=== PATIENT | male | born 1975 | race Hispanic/Latino ===

== ENCOUNTER 2018-04-10 02:49 | Emergency (ER) | payer BC ==
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
[2018-04-10] MEDS ORDERED: TETANUS & DIPHTHERIA TOX,ADULT 0.5 ML VIAL ONE (03:22)
[2018-04-10] MEDS ORDERED: CEFAZOLIN/SWI 1gm 2 GM/20 ML SYR ONE (03:22)
[2018-04-10 03:36] LABS: Absolute Lymphocytes (CBC) 1.5 K/uL (0.7-4.9); Absolute Monocytes 0.7 K/uL (0.1-1.3); Absolute Neutrophil 7.6 K/uL (1.8-8.0); Basophils % 0.7 % (0-1.3); Eosinophils % 2.6 % (0-4.4); Hematocrit 43.8 % (39.6-49.0); Lymphocytes % 14.7 % (15.3-44.8); MCH 31.3 pg (27.0-35.0); MCV 90.8 fL (80-100); MPV 8.6 fL (7.6-11.3); Monocytes % 6.8 % (3.3-12.3); RBC Red Blood Cell Count 4.82 M/uL (4.33-5.43)
[2018-04-10 04:10] LABS: ALT/SGPT 153 U/L (12-78); AST/SGOT 188 U/L (15-37); Albumin 3.6 g/dL (3.4-5.0); Alkaline Phosphatase 81 U/L (45-117); BUN Blood Urea Nitrogen 10 mg/dL (7-18); Bicarbonate 28 mmol/L (21-32); Bilirubin Direct 0.1 mg/dL (0-0.2); Bilirubin Total 0.3 mg/dL (0.2-1.0); Glucose Level 123 mg/dL (74-106); Lipase 285 U/L (73-393); Potassium 3.5 mmol/L (3.5-5.1); Protein, Total 7.3 g/dL (6.4-8.2); Sodium Level 142 mmol/L (136-145)
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
== END 2018-04-10 07:20 | disposition short-term general hospital (02) ==
LOC: ER 02:49
DX: S01.112A Laceration without foreign body of left eyelid and periocular area, initial encounter (principal); S22.41XA Multiple fractures of ribs, right side, initial encounter for closed fracture; S22.22XA Fracture of body of sternum, initial encounter for closed fracture; S23.29XA Dislocation of other parts of thorax, initial encounter; S27.892A Contusion of other specified intrathoracic organs, initial encounter; V49.9XXA Car occupant (driver) (passenger) injured in unspecified traffic accident, initial encounter; Z23 Encounter for immunization
CPT/HCPCS: 36415; 70450; 71260; 72125; 74177; 80048; 80076; 83690; 85025; 86850; 86900; 86901; 90714; 96365; 99285; J0690; Q9967

== ENCOUNTER 2022-03-18 17:22 | Inpatient (IN) | payer SELFPAY ==
[2022-03-18] MEDS ORDERED: HYDRALAZINE HCL 20 MG/ML VIAL ONE ×2 (18:02→19:15)
[2022-03-18 18:11] LABS: Absolute Lymphocytes (CBC) 1.1 K/uL (0.7-4.9); Hematocrit 47.2 % (39.6-49.0); Lymphocytes % 20.3 % (15.3-44.8); MCV 87.3 fL (80-100); MPV 8.4 fL (7.6-11.3); RBC Red Blood Cell Count 5.41 M/uL (4.33-5.43)
[2022-03-18 18:22] LABS: Protime INR 0.86
[2022-03-18 18:25] LABS: Potassium 3.4 mmol/L (3.5-5.1)
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
[2022-03-18 18:30] LABS: Albumin 3.9 g/dL (3.4-5.0); Bilirubin Direct 0.2 mg/dL (0-0.2); Bilirubin Total 0.7 mg/dL (0.2-1.0); Magnesium 2.3 mg/dL (1.8-2.4); Protein, Total 8.1 g/dL (6.4-8.2)
[2022-03-18] MEDS ORDERED: lisinopriL 20 MG TAB ONE (18:30)
[2022-03-18] MEDS ORDERED: POTASSIUM 25 MEQ EFFERV TAB ONE (18:31)
[2022-03-18] MEDS ORDERED: ASPIRIN 81 MG CHEWABLE TABLET ONE (19:15)
[2022-03-18 19:31] LABS: Urine Blood Negative (Negative); Urine Glucose Negative (Negative); Urine Protein Negative (Negative); Urine Specific Gravity 1.015 (1.005-1.030)
[2022-03-18 19:44] LABS: Urine RBC <5 /HPF (None Seen)
--- NOTE | 2022-03-18 19:53 | RAD REPORT ---
EXAM DESCRIPTION: Lyndsey Single View03/18/2022 7:17 pm CLINICAL HISTORY: Chest pain COMPARISON: none FINDINGS: The lungs appear clear of acute infiltrate. The heart is normal size IMPRESSION: No acute abnormalities displayed
--- NOTE | 2022-03-18 21:36 | ER ---
Nurse's Notes [facility] Name: Skyler Fairbanks Age: 47 yrs Sex: Male : 1975 Arrival Date: 03/18/2022 Time: 17:24 Bed 13 Private MD: Diagnosis: Hypertensive urgency Presentation: 03/18 17:31 Chief complaint: sister stated "on Friday I noticed he was dragging his left foot and vg1 he looked dazed". Pt denies weakness at this time, denies blurred vision, or headache. Pt reports "I have been feeling fatigued more than normal". Coronavirus screen: Vaccine status: Patient reports receiving the 2nd dose of the covid vaccine. Client denies travel out of the [place] in the last 14 days. Ebola Screen: Patient negative for fever greater than or equal to 101.5 degrees Fahrenheit, and additional compatible Ebola Virus Disease symptoms Patient denies exposure to infectious person. Initial Sepsis Screen: Does the patient meet any 2 criteria? No. Patient's initial sepsis screen is negative. Does the patient have a suspected source of infection? No. Patient's initial sepsis screen is negative. Risk Assessment: Do you want to hurt yourself or someone else? Patient reports no desire to harm self or others. Onset of symptoms was March 16, 2022. 17:31 Method Of Arrival: Ambulatory vg1 17:31 Acuity: PREMA 2 ss Triage Assessment: 17:37 General: Appears in no apparent distress. uncomfortable, Behavior is calm, cooperative. vg1 Pain: Denies pain. Neuro: Level of Consciousness is awake, alert, obeys commands, Oriented to person, place, time, situation, Prototype Special Build are equal bilaterally Moves all extremities. Gait is steady, Speech is normal, Facial symmetry appears normal. Historical: - Allergies: 17:47 No Known Allergies; vg1 - PMHx: 17:37 eczema; vg1 17:47 Hypertensive disorder; vg1 - Immunization history:: Client reports receiving the 2nd dose of the Covid vaccine. - Social history:: Smoking status: Patient denies any tobacco usage or history of. Screenin:41 Abuse screen: Denies threats or abuse. Nutritional screening: No deficits noted. tw2 Tuberculosis screening: No symptoms or risk factors identified. Fall Risk None identified. Assessment: 17:51 Reassessment: provider Saturnino Merritt notified of pts BP at this time and is at bedside. tw2 19:06 Reassessment:. vc1 19:36 Reassessment: Patient and/or family updated on plan of care and expected duration. Pain vc1 level reassessed. Patient is alert, oriented x 3, equal unlabored respirations, skin warm/dry/pink. 20:30 Reassessment: No changes from previously documented assessment. Patient and/or family vc1 updated on plan of care and expected duration. Pain level reassessed. Patient is alert, oriented x 3, equal unlabored respirations, skin warm/dry/pink. 23:36 Reassessment: No changes from previously documented assessment. Patient and/or family vc1 updated on plan of care and expected duration. Pain level reassessed. Patient is alert, oriented x 3, equal unlabored respirations, skin warm/dry/pink. Sister at bedside. Vital Signs: 17:31 Pulse 88; Resp 16; Temp 98.1; Pulse Ox 100% ; Weight 108.86 kg; Height 5 ft. 6 in. vg1 (167.64 cm); Pain 0/10; 17:46 BP 243 / 115 RA; vg1 17:46 BP 269 / 138 LA; vg1 17:54 BP 257 / 126; Pulse 92; Resp 17; Pulse Ox 98% on R/A; tw2 18:34 BP 221 / 116; Pulse 85; Resp 18; Pulse Ox 97% on R/A; tw2 18:55 BP 206 / 111; Pulse 84; Resp 11; Pulse Ox 99% on R/A; tw2 19:13 BP 203 / 118; Pulse 85; Resp 15; Pulse Ox 99% on R/A; vc1 19:35 BP 196 / 91; Pulse 90; Resp 16; Pulse Ox 100% on R/A; vc1 20:30 BP 172 / 90; Pulse 79; Resp 8; Pulse Ox 99% ; vc1 21:45 BP 168 / 107; Pulse 82; Resp 10; Pulse Ox 98% ; vc1 22:15 BP 187 / 97; Pulse 84; Resp 16; Pulse Ox 97% ; vc1 23:00 BP 181 / 98; Pulse 82; Resp 17; Pulse Ox 99% ; vc1 23:33 BP 180 / 105; Pulse 76; Resp 18; Pulse Ox 98% ; vc1 03/19 00:43 BP 167 / 98; vc1 03/18 17:31 Body Mass Index 38.74 (108.86 kg, 167.64 cm) vg1 03/18 18:34 provider notified of BP tw2 18:55 provider aware of BP tw2 NIH Stroke Scale Scores: 18:05 NIHSS Score: 0 cp ED Course: 17:24 Patient arrived in ED. rg4 17:37 Triage completed. vg1 17:37 Arm band placed on. vg1 17:40 Ashly Dewitt RN is Primary Nurse. tw2 17:41 Bed in low position. Call light in reach. Pulse ox on. NIBP on. tw2 17:45 Chito Clemons PA is PHCP. cp 17:45 Thomas Howell MD is Attending Physician. cp 17:55 Inserted saline lock: 20 gauge in right antecubital area, using aseptic technique. tw2 ,using aseptic technique. KRISTINA Menon Blood collected. 18:23 CT Head Brain wo Cont In Process Unspecified. EDMS 19:19 XRAY Chest (1 view) In Process Unspecified. EDMS 19:36 Primary Nurse role handed off by Ashly Dewitt RN vc1 19:36 Petra George RN is Primary Nurse. vc1 21:35 Adalberto Howell MD is Hospitalizing Provider. cp 03/19 00:43 No provider procedures requiring assistance completed. Patient admitted, IV remains in vc1 place. Administered Medications: 03/18 18:04 Drug: hydrALAZINE 10 mg Route: IVP; Site: right antecubital; tw2 18:56 Follow up: Response: No adverse reaction tw2 18:34 Drug: Lisinopril 20 mg Route: PO; tw2 18:56 Follow up: Response: No adverse reaction tw2 18:34 Drug: Potassium Effervescent Tablet 25 mEq Route: PO; tw2 18:57 Follow up: Response: No adverse reaction tw2 19:21 Drug: hydrALAZINE 10 mg Route: IVP; Site: right antecubital; vc1 20:00 Follow up: Response: No adverse reaction; Blood pressure is lowered vc1 19:21 Drug: Aspirin Chewable Tablet 81 mg Route: PO; vc1 20:00 Follow up: Response: No adverse reaction vc1 22:55 Drug: Metoprolol 25 mg Route: PO; vc1 23:00 Follow up: Response: No adverse reaction; Blood pressure is lowered vc1 Medication: 17:41 VIS not applicable for this client. tw2 Outcome: 21:36 Decision to Hospitalize by Provider. cp 03/19 00:44 Admitted to Tele accompanied by nurse, via wheelchair, with chart, Report called to vc1 KRISTINA Tena Condition: good Instructed on the need for admit. 00:49 Patient left the ED. vc1 NIH Stroke Scale - NIH Stroke Score Date: 03/18/2022 Time: 18:05 Total Score = 0 1a. Level of Consciousness (LOC) - 0(Alert) 1b. Level of Consciousness (LOC) (Month \\T\\ Age) - 0(Both) 1c. LOC Commands (Open \\T\\ Closes Eyes/Pediatrician Active Practice) - 0(Both) 2. Best Gaze (Lateral Gaze Paresis) - 0(Normal) 3. Visual Field Loss - 0(No visual loss) 4. Facial Palsy - 0(Normal) 5a. Left Arm: Motor (10-second hold) - 0(No drift) 5b. Right Arm: Motor (10-second hold) - 0(No drift) 6a. Left Leg: Motor (5-second hold - always test supine) - 0(No drift) 6b. Right Leg: Motor (5-second hold - always test supine) - 0(No drift) 7. Limb Ataxia (finger/nose \\T\\ heel/guadalupe - test with eyes open) - 0(Absent) 8. Sensory Loss (pinprick arms/legs/face) - 0(Normal) 9. Best Language: Aphasia (description/naming/reading) - 0(No aphasia) 10. Dysarthria (speech clarity - read or repeat words) - 0(Normal) 11. Extinction and Inattention (visual/tactile/auditory/spatial/personal) - 0(No abnormality) Initials: cp Signatures: Dispatcher [employer] EDEstefany Lind RN RN ss Chito Clemons PA PA cp Ashly Dewitt RN RN tw2 Sara Chiu rg4 Britney Chiu RN RN vg1 Petra George RN RN vc1 Corrections: (The following items were deleted from the chart) 03/18 18:46 17:31 Acuity: PREMA 3 vg1 ss
--- NOTE | 2022-03-18 21:36 | EDPHYS ---
Physician Documentation [facility] Name: Skyler Fairbanks Age: 47 yrs Sex: Male : 1975 Arrival Date: 03/18/2022 Time: 17:24 Bed 13 Private MD: ED Physician Thomas Howell HPI: 03/18 17:55 This 47 yrs old Male presents to ER via Ambulatory with complaints of High cp Blood Pressure, Left Sided Weakness. 17:55 The patient has elevated blood pressure and discovered this at home, with a home device.cp 17:55 Associated signs and symptoms: Pertinent positives: weakness, fatigue, Pertinent cp negatives: chest pain, dizziness, headache, visual changes. Severity of symptoms: in the emergency department the blood pressure is unchanged. Patient reports history of htn and last took blood pressure medications was about 10 years ago. Sister concerned after noticing patient to appear to drag left leg this past Friday. Historical: - Allergies: 17:47 No Known Allergies; vg1 - PMHx: 17:37 eczema; vg1 17:47 Hypertensive disorder; vg1 - Immunization history:: Client reports receiving the 2nd dose of the Covid vaccine. - Social history:: Smoking status: Patient denies any tobacco usage or history of. ROS: 18:00 Constitutional: Positive for fatigue, Negative for body aches, chills, fever, poor PO cp intake. 18:00 Eyes: Negative for injury, pain, redness, and discharge. cp 18:00 ENT: Negative for drainage from ear(s), ear pain, sore throat, difficulty swallowing, difficulty handling secretions. 18:00 Cardiovascular: Negative for chest pain, edema, palpitations. 18:00 Respiratory: Negative for cough, shortness of breath, wheezing. 18:00 Abdomen/GI: Negative for abdominal pain, nausea, vomiting, and diarrhea. 18:00 Back: Negative for pain at rest, pain with movement. 18:00 Neuro: Positive for weakness, Negative for altered mental status, dizziness, headache, numbness, speech changes, syncope. 18:00 All other systems are negative. Exam: 17:52 ECG was reviewed by the Attending Physician. cp 18:05 Constitutional: The patient appears in no acute distress, alert, awake, comfortable, cp non-diaphoretic, non-toxic, well developed, well nourished. 18:05 Head/Face: Normocephalic, atraumatic. cp 18:05 Eyes: Periorbital structures: appear normal, Pupils: equal, round, and reactive to cp light and accomodation, Extraocular movements: intact throughout, Conjunctiva: normal, no exudate, no injection, Sclera: no appreciated abnormality, Lids and lashes: appear normal, bilaterally. 18:05 ENT: External ear(s): are unremarkable, Nose: is normal, Mouth: Lips: moist, Oral cp mucosa: pink and intact, moist, Posterior pharynx: Airway: no evidence of obstruction, patent. 18:05 Neck: ROM/movement: is normal, is supple, without pain, no range of motions limitations, no nuchal rigidity. 18:05 Chest/axilla: Inspection: normal. 18:05 Cardiovascular: Rate: normal, Rhythm: regular, Edema: is not appreciated, JVD: is not appreciated. 18:05 Respiratory: the patient does not display signs of respiratory distress, Respirations: normal, no use of accessory muscles, no retractions, labored breathing, is not present, Breath sounds: are clear throughout, no decreased breath sounds, no stridor, no wheezing. 18:05 Abdomen/GI: Inspection: abdomen appears normal, Bowel sounds: active, all quadrants, Palpation: abdomen is soft and non-tender, in all quadrants. 18:05 Back: pain, is absent, ROM is normal. 18:05 Neuro: Orientation: to person, place \T\ time. Mentation: is normal, Cerebellar function: is grossly normal, Motor: moves all fours, strength is normal, Sensation: is normal. Vital Signs: 17:31 Pulse 88; Resp 16; Temp 98.1; Pulse Ox 100% ; Weight 108.86 kg; Height 5 ft. 6 in. vg1 (167.64 cm); Pain 0/10; 17:46 BP 243 / 115 RA; vg1 17:46 BP 269 / 138 LA; vg1 17:54 BP 257 / 126; Pulse 92; Resp 17; Pulse Ox 98% on R/A; tw2 18:34 BP 221 / 116; Pulse 85; Resp 18; Pulse Ox 97% on R/A; tw2 18:55 BP 206 / 111; Pulse 84; Resp 11; Pulse Ox 99% on R/A; tw2 19:13 BP 203 / 118; Pulse 85; Resp 15; Pulse Ox 99% on R/A; vc1 19:35 BP 196 / 91; Pulse 90; Resp 16; Pulse Ox 100% on R/A; vc1 20:30 BP 172 / 90; Pulse 79; Resp 8; Pulse Ox 99% ; vc1 21:45 BP 168 / 107; Pulse 82; Resp 10; Pulse Ox 98% ; vc1 22:15 BP 187 / 97; Pulse 84; Resp 16; Pulse Ox 97% ; vc1 23:00 BP 181 / 98; Pulse 82; Resp 17; Pulse Ox 99% ; vc1 23:33 BP 180 / 105; Pulse 76; Resp 18; Pulse Ox 98% ; vc1 03/19 00:43 BP 167 / 98; vc1 03/18 17:31 Body Mass Index 38.74 (108.86 kg, 167.64 cm) vg1 03/18 18:34 provider notified of BP tw2 18:55 provider aware of BP tw2 NIH Stroke Scale Scores: 18:05 NIHSS Score: 0 cp MDM: 17:46 Patient medically screened. cp 18:00 Differential diagnosis: hypertensive crisis, Malignant HTN, CVA, intracerebral cp hemorrhage. 20:15 Data reviewed: vital signs, nurses notes, lab test result(s), EKG, radiologic studies, cp CT scan, plain films. 20:15 Test interpretation: by ED physician or midlevel provider: ECG, plain radiologic cp studies. 21:30 Counseling: I had a detailed discussion with the patient and/or guardian regarding: the cp historical points, exam findings, and any diagnostic results supporting the discharge/admit diagnosis, lab results, radiology results. 21:30 Physician consultation: Daniele GABRIEL was called at 21:30, was contacted at 21:30, regarding admission, to the telemetry unit. 03/18 17:54 Order name: Basic Metabolic Panel; Complete Time: 18:26 tw2 03/18 18:59 Interpretation: Normal except: K 3.4; GFR 86. cp 03/18 17:54 Order name: CBC with Diff; Complete Time: 18:26 tw2 03/18 19:08 Interpretation: EOSINOPHIL % 5.5. cp 03/18 17:54 Order name: Troponin HS; Complete Time: 18:26 tw2 03/18 17:58 Order name: Magnesium; Complete Time: 18:58 cp 03/18 17:58 Order name: Urine Microscopic Only; Complete Time: 19:46 cp 03/18 17:58 Order name: BNP; Complete Time: 18:58 cp 03/18 18:58 Interpretation: Abnormal: NT PRO-BNP 236. cp 03/18 17:54 Order name: XRAY Chest (1 view); Complete Time: 20:08 tw2 03/18 20:08 Interpretation: Report review. cp 03/18 17:58 Order name: CT Head Brain wo Cont; Complete Time: 18:58 cp 03/18 17:58 Order name: LFT's; Complete Time: 18:58 cp 03/18 18:58 Interpretation: Normal except: GLOB 4.2; A/G 0.9. cp 03/18 17:58 Order name: PT-INR; Complete Time: 18:58 cp 03/18 19:32 Order name: Urine Dipstick-Ancillary; Complete Time: 19:46 EDMS 03/18 21:42 Order name: SARS RAPID la1 03/18 17:52 Order name: EKG; Complete Time: 17:52 tw2 03/18 17:52 Order name: EKG - Nurse/Tech; Complete Time: 17:52 tw2 03/18 17:54 Order name: Cardiac monitoring; Complete Time: 17:54 tw2 03/18 17:54 Order name: IV Saline Lock; Complete Time: 17:54 tw2 03/18 17:54 Order name: Labs collected and sent; Complete Time: 17:55 tw2 03/18 17:54 Order name: O2 Per Protocol; Complete Time: 17:54 tw2 03/18 17:54 Order name: O2 Sat Monitoring; Complete Time: 17:54 tw2 03/18 17:58 Order name: Urine Dipstick-Ancillary (obtain specimen); Complete Time: 19:37 cp EC:52 Rate is 91 beats/min. Rhythm is regular. NE interval is normal. QRS interval is normal. cp QT interval is normal. Interpreted by me. Reviewed by me. Administered Medications: 18:04 Drug: hydrALAZINE 10 mg Route: IVP; Site: right antecubital; tw2 18:56 Follow up: Response: No adverse reaction tw2 18:34 Drug: Lisinopril 20 mg Route: PO; tw2 18:56 Follow up: Response: No adverse reaction tw2 18:34 Drug: Potassium Effervescent Tablet 25 mEq Route: PO; tw2 18:57 Follow up: Response: No adverse reaction tw2 19:21 Drug: hydrALAZINE 10 mg Route: IVP; Site: right antecubital; vc1 20:00 Follow up: Response: No adverse reaction; Blood pressure is lowered vc1 19:21 Drug: Aspirin Chewable Tablet 81 mg Route: PO; vc1 20:00 Follow up: Response: No adverse reaction vc1 22:55 Drug: Metoprolol 25 mg Route: PO; vc1 23:00 Follow up: Response: No adverse reaction; Blood pressure is lowered vc1 Disposition Summary: 03/18/22 21:36 Hospitalization Ordered Hospitalization Status: Observation cp Provider: Adalberto Howell cp Location: Telemetry/MedSurg (observation) cp Condition: Stable cp Problem: new cp Symptoms: have improved cp Bed/Room Type: Standard Room Assignment: 406(03/18/22 23:30) Diagnosis - Hypertensive urgency cp Forms: - Medication Reconciliation Form cp - SBAR form cp NIH Stroke Scale - NIH Stroke Score Date: 03/18/2022 Time: 18:05 Total Score = 0 1a. Level of Consciousness (LOC) - 0(Alert) 1b. Level of Consciousness (LOC) (Month \T\ Age) - 0(Both) 1c. LOC Commands (Open \T\ Closes Eyes/Director Of Scientific Research) - 0(Both) 2. Best Gaze (Lateral Gaze Paresis) - 0(Normal) 3. Visual Field Loss - 0(No visual loss) 4. Facial Palsy - 0(Normal) 5a. Left Arm: Motor (10-second hold) - 0(No drift) 5b. Right Arm: Motor (10-second hold) - 0(No drift) 6a. Left Leg: Motor (5-second hold - always test supine) - 0(No drift) 6b. Right Leg: Motor (5-second hold - always test supine) - 0(No drift) 7. Limb Ataxia (finger/nose \T\ heel/guadalupe - test with eyes open) - 0(Absent) 8. Sensory Loss (pinprick arms/legs/face) - 0(Normal) 9. Best Language: Aphasia (description/naming/reading) - 0(No aphasia) 10. Dysarthria (speech clarity - read or repeat words) - 0(Normal) 11. Extinction and Inattention (visual/tactile/auditory/spatial/personal) - 0(No abnormality) Initials: cp Addendum: 03/21/2022 07:05 Co-signature as Attending Physician, Thomas Howell MD. rn Signatures: Dispatcher [employer] EDMiriam Polo RN RN mw Nieto, Roman, MD MD rn Daniele Hawkins, ADJUNCT LECTURER-C ADJUNCT LECTURER-Cla1 Chito Clemons PA PA cp Ashly Dewitt RN RN tw2 Britney Chiu RN RN vg1 Petra George RN RN vc1 Corrections: (The following items were deleted from the chart) 03/18 23:30 21:36 garrett herbert
[2022-03-18] MEDS ORDERED: ONDANSETRON 4 MG/2 ML VIAL IV PRN (22:37)
[2022-03-18] MEDS ORDERED: HYDRALAZINE HCL 20 MG/ML VIAL IV PRN (22:37)
[2022-03-18] MEDS ORDERED: METOPROLOL TAR 25 MG TAB ONE (22:50)
--- NOTE | 2022-03-18 23:09 | P.HP ---
Certification for Inpatient Patient admitted to: Observation With expected LOS: <2 Midnights Patient will require the following post-hospital care: None Practitioner: I am a practitioner with admitting privileges, knowledge of patient current condition, hospital course, and medical plan of care. Services: Services provided to patient in accordance with Admission requirements found in Title 42 Section 412.3 of the Code of Federal Regulations Patient History Date of Service: 03/18/22 Reason for admission: Hypertensive urgency History of Present Illness: 47-year-old male with history of hypertension, eczema presents emergency department for high blood pressure. Patient reports has been feeling fatigued/unwell over the course of the last 1 week or so. He was last seen by primary care doctor about 12 years ago, he reports he was on lisinopril at that time but unsure of the dose. His family member is a nurse and checked his blood pressure she found to be extremely elevated with a systolic pressure of around 260 and a diastolic in the 110s to 120s. Upon arrival to the emergency department patient's blood pressure was 243/115. Labs were obtained which were unremarkable CT head without acute findings chest x-ray unremarkable. His blood pressure improved moderately after receiving lisinopril, hydralazine but was still significantly elevated around 210 systolic over 110 diastolic. Patient chest pain-free denies any headache did report some blurry vision earlier in the week. ED provider wishes to admit under observation for hypertensive urgency. Allergies No Known Allergies Allergy (Unverified 03/18/22 22:22) - Past Medical/Surgical History -: Hypertension -: Left eye surgery/trauma Psychosocial/ Personal History: Patient lives at home with family - Family History Mother -: Heart disease, Stroke, Cancer Father -: Hypertension Sister -: Hypertension - Social History Smoking Status: Never smoker Alcohol use: Yes CD- Drugs: No Caffeine use: Yes Place of Residence: Home Review of Systems 10-point ROS is otherwise unremarkable General: Malaise Physical Examination - Physical Exam General: Alert, In no apparent distress, Oriented x3 HEENT: Atraumatic, PERRLA, Mucous membr. moist/pink, EOMI, Sclerae nonicteric Neck: Supple, 2+ carotid pulse no bruit, No LAD, Without JVD or thyroid abnormality Respiratory: Clear to auscultation bilaterally, Normal air movement Cardiovascular: Regular rate/rhythm, Normal S1 S2 Capillary refill: <2 Seconds Gastrointestinal: Normal bowel sounds, No tenderness Musculoskeletal: No tenderness Integumentary: No rashes Neurological: Normal speech, Normal strength at 5/5 x4 extr, Normal tone, Normal affect - Studies Laboratory Data (last 24 hrs) 03/18/22 18:09: PT 10.3, INR 0.86 03/18/22 18:09: Magnesium 2.3, Total Bilirubin 0.7, AST 25, ALT 26, Alkaline Phosphatase 81 03/18/22 17:50: WBC 5.60, Hgb 15.8, Hct 47.2, Plt Count 226 03/18/22 17:50: Sodium 138, Potassium 3.4 L, BUN 15, Creatinine 1.07, Glucose 99 Assessment and Plan - Plan Assessment: Hypertensive urgency with underlying primary hypertensionpoorly controlled Eczema Plan: Hypertensive urgency with underlying primary hypertensionpoorly controlled: Blood pressure initially severely elevated 240s over 115-120, has improved after receiving dose of lisinopril/hydralazine in the emergency department to around 210/110. Given additional dose of metoprolol tartrate 25 mg this evening. We will continue lisinopril, metoprolol and adjust dose as necessary to gain better control of blood pressure. We will aim for blood pressure systolic in the high 100s over diastolic around 100. Echocardiogram ordered for morning. Will monitor on tele for tonight. Eczema: Continue home meds. DVT PPX: Lovenox Code status: Full Discharge Plan: Home Plan to discharge in: 24 Hours - Advance Directives Does patient have a Living Will: No Does patient have a Durable POA for Healthcare: No - Code Status/Comfort Care Code Status Assessed: Yes (Full code) Critical Care: No Time Spent Managing Pts Care (In Minutes): 55
[2022-03-18 23:27] LABS: SARS-CoV-2 Antigen Rapid Res Negative (Negative)
[2022-03-19 01:06] VITALS: BMI 37.1
[2022-03-19 05:51] LABS: Absolute Lymphocytes (CBC) 1.2 K/uL (0.7-4.9); Hematocrit 43.8 % (39.6-49.0); Lymphocytes % 22.8 % (15.3-44.8); MCV 87.2 fL (80-100); MPV 8.5 fL (7.6-11.3); RBC Red Blood Cell Count 5.02 M/uL (4.33-5.43)
[2022-03-19] MEDS ORDERED: METOPROLOL TAR 25 MG TAB PO SCH (06:00)
[2022-03-19 06:19] LABS: Albumin 3.3 g/dL (3.4-5.0); Bilirubin Total 0.5 mg/dL (0.2-1.0); Magnesium 2.5 mg/dL (1.8-2.4); Potassium 3.2 mmol/L (3.5-5.1); Protein, Total 6.8 g/dL (6.4-8.2); Thyroid Stimulating Hormone 2.39 uIU/mL (0.360-3.740)
[2022-03-19] MEDS ORDERED: hydroCHLOROthiazide 25 MG TAB PO SCH (07:00)
[2022-03-19] MEDS ORDERED: POTASSIUM CL SA 10 MEQ TAB PO ONE (09:00)
[2022-03-19] MEDS ORDERED: lisinopriL 20 MG TAB PO SCH (09:00)
[2022-03-19] MEDS: ENOXAPARIN 40 MG/0.4 ML SQ SCH (09:47)
[2022-03-19] MEDS: hydroCHLOROthiazide 12.5 MG CAP PO SCH ×2 (09:48→11:40)
--- NOTE | 2022-03-19 13:57 | EKG ---
Test Date: 2022-03-18 Test Time: 17:46:18 Adjunct Faculty Instructor: JULES MEASUREMENT RESULTS: Intervals: Rate: 91 NV: 160 QRSD: 92 QT: 376 QTc: 462 [place]: P: 65 NV: 160 QRS: -2 T: 112 INTERPRETIVE STATEMENTS: Normal sinus rhythm Moderate voltage criteria for LVH, may be normal variant ST & T wave abnormality, consider lateral ischemia Prolonged QT Abnormal ECG No previous ECG available for comparison Electronically Signed On 03-19-22 13:57:10 CDT by Jay Oh
[2022-03-19 14:07] VITALS: O2SAT 96
--- NOTE | 2022-03-19 14:10 | ECHO ---
HEIGHT: 5 ft 6 in WEIGHT: 230 lb 0 oz DATE OF STUDY: 03/19/[address]: Daniele Hawkins NP 2-DIMENSIONAL: YES M.MODE: YES DOPPLER: YES COLOR FLOW: YES TDS: NO PORTABLE: YES DEFINITY: NO BUBBLE STUDY: NO DIAGNOSIS: HYPERTENSION URGENCY CARDIAC HISTORY: CATHERIZATION: NO SURGERY: NO PROSTHETIC VALVE: NO PACEMAKER: NO MEASUREMENTS (cm) DIASTOLIC (NORMALS) SYSTOLIC (NORMALS) IVSd 1.5 (0.6-1.2) LA Diam 2.9 (1.9-4.0) LVEF 74% LVIDd 4.8 (3.5-5.7) LVIDs 2.7 (2.0-3.5) %FS 43% LVPWd 1.4 (0.6-1.2) Ao Diam 2.5 (2.0-3.7) 2 DIMENSIONAL ASSESSMENT: RIGHT ATRIUM: NORMAL LEFT ATRIUM: NORMAL RIGHT VENTRICLE: NORMAL LEFT VENTRICLE: LEFT VENTRICULAR HYPERTROPHY TRICUSPID VALVE: MILD TRICUSPID REGURGITATION MITRAL VALVE: NORMAL PULMONIC VALVE: NORMAL AORTIC VALVE: NORMAL PERICARDIAL EFFUSION: NONE AORTIC ROOT: NORMAL LEFT VENTRICULAR WALL MOTION: NORMAL. DOPPLER/COLOR FLOW: MILD TRICUSPID REGURGITATION/ MITRAL REGURGITATION. COMMENTS: NORMAL LEFT VENTRICULAR EJECTION FRACTION GREATER THAN 60%. NORMAL WALL MOTION. MODERATE CONCENTRIC LEFT VENTRICULAR HYPERTROPHY. MILD MITRAL TRICUSPID REGURGITATION/ TRICUSPID REGURGITATION. TECHNOLOGIST: JACK GALVIN
--- NOTE | 2022-03-19 17:20 | P.PN ---
Date of Service: 03/19/22 Subjective: BP improved, but still very elevated family report patient had some brain fog and foot drop denies any "Brain fog" this morning, feels better; no numbness/tingling, no change in vision/hearing ROS: 10 point ROS as noted above, otherwise negative Physical exam GEN: Alert, oriented, NAD HEENT: Normal conjunctiva, sclera anicteric CV: Regular rate and rhythm, no edema Pulm: Non-labored respirations on room air ABD: Soft, nontender, nondistended Neuro: Normal speech, normal affect, str 5/5 bilaterally upper/lower extremities Problem List Hypertensive urgency with underlying primary hypertensionpoorly controlled Eczema HTN urgency h/o HTN, off meds for many years ?HTN encephalopathy foot drop at home, which was new CT head negative for CVA BP improved slightly, continue on lisinopril and add HCTZ monitor for BP control/response avoid significant drop in first 24hrs possible untreated sleep apnea, discussed follow up / sleep study for evaluation monitor on telemetry VTE: Lovenox Code: Full Dispo: home, ~1 day Time Spent Managing Pts Care (In Minutes): 35
[2022-03-19] MEDS ORDERED: lisinopriL 20 MG TAB PO ONE (21:05)
[2022-03-20 03:59] LABS: Magnesium 2.3 mg/dL (1.8-2.4); Potassium 3.8 mmol/L (3.5-5.1)
[2022-03-20] MEDS ORDERED: POTASSIUM 25 MEQ EFFERV TAB PO ONE (06:00)
[2022-03-20] MEDS: hydroCHLOROthiazide 12.5 MG CAP PO SCH (08:33)
[2022-03-20] MEDS: ENOXAPARIN 40 MG/0.4 ML SQ SCH (08:33)
[2022-03-20] MEDS: lisinopriL 20 MG TAB PO SCH (08:34)
[2022-03-20] MEDS ORDERED: hydroCHLOROthiazide 12.5 MG CAP PO ONE (12:26)
[2022-03-20] MEDS ORDERED: AMLODIPINE 5 MG TAB PO ONE ×3 (16:00→20:00)
--- NOTE | 2022-03-20 21:07 | P.PN ---
Date of Service: 03/20/22 Subjective: BP remains elevated, slightly worse; despite uptitration of anti-hypertensives no neuro symptoms ROS: 10 point ROS as noted above, otherwise negative Physical exam GEN: Alert, oriented, NAD HEENT: Normal conjunctiva, sclera anicteric CV: Regular rate and rhythm, no edema Pulm: Non-labored respirations on room air ABD: Soft, nontender, nondistended Neuro: Normal speech, normal affect, str 5/5 bilaterally upper/lower extremities Problem List Hypertensive urgency with underlying primary hypertensionpoorly controlled Hypertensive encephalopathy, resolved Eczema HTN urgency with HTN encephalopathy h/o HTN, off meds for many years HTN encephalopathy foot drop at home, which was new; resolved CT head negative for CVA BP initially improved slightly, now remaining >180 SBP despite uptitration of anti-hypertensives add 3rd anti-hypertensive patient anxious to go home, suspect leading to some increased BP as well cardiology consulted TTE: LVH possible untreated sleep apnea, discussed follow up / sleep study for evaluation monitor on telemetry VTE: Lovenox Code: Full Dispo: home, ~1 day Time Spent Managing Pts Care (In Minutes): 35
[2022-03-21 06:18] LABS: Magnesium 2.2 mg/dL (1.8-2.4); Potassium 3.3 mmol/L (3.5-5.1)
[2022-03-21] MEDS: ENOXAPARIN 40 MG/0.4 ML SQ SCH (08:29)
[2022-03-21] MEDS: lisinopriL 20 MG TAB PO SCH (08:30)
[2022-03-21 08:45] VITALS: BP 161/95; TEMP 97.9
[2022-03-21] MEDS ORDERED: AMLODIPINE 5 MG TAB PO SCH ×2 (09:00)
[2022-03-21] MEDS ORDERED: hydroCHLOROthiazide 25 MG TAB PO SCH (09:00)
[2022-03-21] MEDS ORDERED: AMLODIPINE 10 MG TAB PO SCH (09:00)
--- NOTE | 2022-03-21 20:08 | P.DS ---
Admission Date: 03/19/22 Discharge Date: 03/21/22 Disposition: ROUTINE DISCHARGE Discharge Condition: GOOD Reason for Admission: Hypertensive urgency Brief History of Present Illness: 47-year-old male with history of hypertension, eczema presents emergency department for high blood pressure. Patient reports has been feeling fatigued/unwell over the course of the last 1 week or so. He was last seen by primary care doctor about 12 years ago, he reports he was on lisinopril at that time but unsure of the dose. His family member is a nurse and checked his blood pressure she found to be extremely elevated with a systolic pressure of around 260 and a diastolic in the 110s to 120s. Upon arrival to the emergency department patient's blood pressure was 243/115. Labs were obtained which were unremarkable CT head without acute findings chest x-ray unremarkable. His blood pressure improved moderately after receiving lisinopril, hydralazine but was still significantly elevated around 210 systolic over 110 diastolic. Patient chest pain-free denies any headache did report some blurry vision earlier in the week. Hospital Course: Problem List Hypertensive urgency with underlying primary hypertensionuncontrolled Hypertensive encephalopathy, resolved Eczema Patient presented with severe hypertension with neurologic symptoms at home, concerning for hypertensive emergency. Symptoms resolved. He had initial mild improvement of blood pressure and resistant hypertension when transitioned to oral medications. he was uptitrated to 3 anti-hypertensives, with improvement of blood pressure to 160s/80-90s. Echocardiogram revealed LV hypertrophy. Patient was deemed stable for discharge home. Check blood pressure at least daily and keep record to take to your PCP. Follow up with PCP within 3-5 days Follow up with Cardiology Vital Signs/Physical Exam: Temp Pulse Resp BP Pulse Ox 97.9 F 83 12 161/95 H 96 03/21/22 08:00 03/21/22 08:00 03/21/22 08:00 03/21/22 08:00 03/21/22 08:00 General: Alert, In no apparent distress, Oriented x3 HEENT: EOMI, Sclerae nonicteric Respiratory: Clear to auscultation bilaterally, Normal air movement Cardiovascular: No edema, Regular rate/rhythm, No murmurs Gastrointestinal: Soft and benign, Non-distended, No tenderness Musculoskeletal: No contractures, No tenderness Integumentary: No rashes Neurological: Normal speech, Normal affect Laboratory Data at Discharge: WBC 5.40 K/uL (4.3-10.9) 03/19/22 05:25 Hgb 15.0 g/dL (13.6-17.9) 03/19/22 05:25 Hct 43.8 % (39.6-49.0) 03/19/22 05:25 Plt Count 240 K/uL (152-406) 03/19/22 05:25 PT 10.3 SECONDS (9.2-12.8) 03/18/22 18:09 INR 0.86 03/18/22 18:09 Sodium 139 mmol/L (136-145) 03/21/22 05:43 Potassium 3.3 mmol/L (3.5-5.1) L D 03/21/22 05:43 BUN 12 mg/dL (7-18) 03/21/22 05:43 Creatinine 1.01 mg/dL (0.55-1.3) 03/21/22 05:43 Glucose 98 mg/dL (74-106) 03/21/22 05:43 Magnesium 2.2 mg/dL (1.8-2.4) 03/21/22 05:43 Total Bilirubin 0.5 mg/dL (0.2-1.0) 03/19/22 05:25 AST 20 U/L (15-37) 03/19/22 05:25 ALT 22 U/L (12-78) 03/19/22 05:25 Alkaline Phosphatase 72 U/L (45-117) 03/19/22 05:25 Triglycerides 131 mg/dL (<150) 03/19/22 05:25 Cholesterol 152 mg/dL (<200) 03/19/22 05:25 HDL Cholesterol 31 mg/dL (40-60) L 03/19/22 05:25 Cholesterol/HDL Ratio 4.90 03/19/22 05:25 Home Medications: Amlodipine [Norvasc*] 10 mg PO DAILY 30 Days #30 tab 03/21/22 hydroCHLOROthiazide [Hydrodiuril*] 25 mg PO DAILY 30 Days #30 tab 03/21/22 lisinopriL [Lisinopril] 40 mg PO DAILY 30 Days #30 tab 03/21/22 New Medications: hydroCHLOROthiazide [Hydrodiuril*] 25 mg PO DAILY 30 Days #30 tab lisinopriL [Lisinopril] 40 mg PO DAILY 30 Days #30 tab Amlodipine [Norvasc*] 10 mg PO DAILY 30 Days #30 tab Physician Discharge Instructions: Patient presented with severe hypertension with neurologic symptoms at home, concerning for hypertensive emergency. Symptoms resolved. He had initial mild improvement of blood pressure and resistant hypertension when transitioned to oral medications. he was uptitrated to 3 anti-hypertensives, with improvement of blood pressure to 160s/80-90s. Echocardiogram revealed LV hypertrophy. Patient was deemed stable for discharge home. Check blood pressure at least daily and keep record to take to your PCP. Follow up with PCP within 3-5 days Follow up with Cardiology Diet: Low sodium Activity: Ad anne Followup: NONE,NONE [Primary Care Provider] - Jay Oh MD [ACTIVE - CAN ADMIT] - Time spent managing pt's care (in minutes): 45
--- NOTE | 2022-03-22 00:56 | CON ---
Date of Consultation: 03/21/2022 Reason For Consultation: Uncontrolled hypertension. History Of Present Illness: This 47-year-old male with history of hypertension, uncontrolled, presen lucian to the emergency room because of blood pressure being around 260 systolic. Upon arrival to the e mergency room, his blood pressure was 243/115. He was started on antihypertensive medications. Bloo d pressure is below 200 and he does not have any complaints. No chest pain or shortness of breath. Past Medical History: Hypertension. Medications: Refer to reconciliation sheet for detailed list. Allergies: NO KNOWN DRUG ALLERGIES. Review of Systems: No premature coronary artery disease or cancer. Social History: Does not smoke or drink. Does not use any drugs. Review of Systems: All systems reviewed and they are negative except for what is mentioned in HPI. Physical Examination: Vital Signs: Temperature is 97.9, pulse 83, breathing at 12, blood pressure is 161/96, saturating 96 % on room air. General: A pleasant middle-aged male, in no apparent distress. Head And Neck: Pupils are equal and reactive to light. Intact eye movements. No JVD. No cervical lymphadenopathy. Neck: Supple. Thyroid is not enlarged. Lungs: Clear to auscultation without rhonchi, wheezing, or crackles. No accessory muscle use. Heart: Regular rate and rhythm. No extra sounds. Abdomen: Soft, nontender. Bowel sounds positive. No organomegaly. No masses or hernia. No rigidi ty or rebound. Extremities: No edema, clubbing, or cyanosis. Intact pulses. Skin: No rashes. Neurologic: Alert, awake, and oriented x3. No acute focal deficits appreciated. Investigations: BUN is 12, creatinine 1.0. Troponins are negative. Assessment And Recommendation: Hypertension with hypertensive urgency. His blood pressure has dropp ed to reasonable level. Recommended to add hydrochlorothiazide 25 mg daily along with his amlodipine and lisinopril and follow up in 1-2 weeks as an outpatient. Low-salt diet and exercise is recommend ed. SR/MODL Voice ID: [id number] Report ID: [id number]
== END 2022-03-21 10:03 | disposition home or self-care (01) | DRG 305 ==
LOC: ER 17:22 → ERHOLD 22:29 → 4TH 23:37 → OBSVTOIN 03-19 19:13
PROVIDERS: ADMIT Hospitalist; ATTEND Hospitalist
DX: I16.0 Hypertensive urgency (principal); I67.4 Hypertensive encephalopathy; I10 Essential (primary) hypertension; L30.9 Dermatitis, unspecified; Z20.822 Contact with and (suspected) exposure to COVID-19
CPT/HCPCS: 36415; 70450; 71045; 80048; 80053; 80061; 80076; 81003; 81015; 82088; 83735; 83880; 84132; 84244; 84439; 84443; 84484; 85025; 85610; 87811; 93005; 93306; 96374; 99285; G0378; J0360; J1650

== ENCOUNTER 2022-11-14 15:48 | Inpatient (IN) | payer SELFPAY ==
--- OUTSIDE RECORDS SUMMARY | 2022-11-14 15:55 | XMS REPORT | Continuity of Care Document ---
:1975 Author Organization [facility] t Address [address] [facility] [place] [address] Care Team Providers Name Role Phone GABRIELLA REGALADO Attending Clinician Unavailable Deuce RODRIGUEZ, Pankaj Dangelo Attending Clinician Preeti Ochoa MD, Eloise Wilkinson Attending Clinici an Ruben RODRIGUEZ, Deb Ambrose Attending Clinician Jose Simms MD Attending Clinician Unavailable Dannielle RODRIGUEZ, Suzette Alexis Attending Clinician Moe Fish MD Attending Clinician MOE FISH Attending Clinician Unavailable Virtual, Surgeon Attending Clinician Unavailable Fransisca RODRIGUEZ, Isaias Bates Attending Clinician ELOISE SHERWOOD Admitting Clinician Unavailable Problems Condition Condition Condition Status Onset Resolution Last Treating Co mments Source Name Details Category Date Date Treatment Clinician Date Carotid Carotid Disease Recurre 2021-[address] [facility] [address] stenosis, stenosis, nce 0-31 [facility] right right 00:00: Medical 00 [facility] HLD HLD Disease Recurre 2021-[address] [facility] (hyperlipi (hyperlipi nce 0-31 [facility] kes demia) demia) 00:00: Medical [address] [place] [address] HTN HTN Disease Recurre 2021-[address] [facility] (hypertens (hypertens nce 0-31 [place] k[facility] ion) ion) 00:00: Medical 00 Center Left Left Disease Active 2021-[address] [facility] hemiplegia hemiplegia 0-31 [place] kes 00:00: Medical 00 Center Plaque Plaque Disease Recurre 2021-[address] [facility] psoriasis psoriasis nce 0-30 Luke s 00:00: Medical 00 [place] Acute Acute Disease Active 2021-[address] [facility] ischemic ischemic 0-30 [facility] stroke stroke 00:00: Medical 00 [facility] Cerebral Cerebral Disease Active 2021-05 [facility] hypoperfus hypoperfus 0-30 [place] k[facility] ion ion 00:00: Medical 00 Center Allergies, Adverse Reactions, Alerts Allergy Allergy Status Severity Reaction(s) Onset Inactive Treating Comm ents Source Name Type Date Date Clinician NO KNOWN Allergy Active [facility] Family History Family Member Diagnosis Comments Start Date Stop Date Source Maternal grandfather Stroke [facility] Maternal uncle Stroke [facility] Social History Social Habit Start Date Stop Date Quantity Comments Source History SDFL [facility] Alcohol Frequency Medical Center History [facility] Alcohol Std Drinks Medica l Center History [facility] Alcohol Binge Medical [place] [facility] History [facility] Transport Non-Med Medical Center Alcohol intake 2022-03-25 2022-03-25 [facility]00 [facility] alcohol Medical Center (finding) Exposure to 2022-03-14 2022-03-[address] [facility] SARS-CoV-2 (event) 00:00:00 10:37:00 Medica l Center Tobacco use and 2022-03-24 2022-03-[address] [facility] exposure 00:00:00 00:00:00 Medical Center History [facility] 2022-03-24 2022-03-[address] [facility] Transport Med 00:00:00 00:00:[address] History [facility] 2022-03-24 2022-03-[address] [facility] Housing Unable to 00:00:00 00:00:00 Medical Center Pay History [facility] 2022-03-24 2022-03-[address] [facility] Housing Places 00:00:00 00:00:00 Medical Ce nter Lived History [facility] 2022-03-24 2022-03-[address] [facility] Housing Homeless 00:00:00 00:00:00 Medical Center Last Year Alcohol Comment 2022-03-24 2022-03-[address] [facility] [address] [facility] kegriffin 00:00:00 00:00:00 [facility] Center Sex Assigned At [address] [place] landa 00:00:00 00:00:00 [facility] Smoking Status Start Date Stop Date Source Never smoker [facility] St kes [facility] Medications Ordered Filled Start Stop Current Ordering Indication Dosage Frequency Signature Comments Components Source Medication Medication Date Date Medication? Clinician (SIG) Name Name lisinopriL 2021-05 Yes 40mg QD Take [address] (PRINIVIL,Z 06-03 by mouth Luke s ESTRIL) 40 18:15: daily. Medic al MG tablet 04 Gardner lisinopriL 2021-05 Yes 40mg QD Take [address] (PRINIVIL,Z 06-03 by mouth Luke s ESTRIL) 40 18:15: daily. Medic al MG tablet 04 [facility] amLODIPine 2021-05 hypertensio 10mg QD Take [address] (NORVASC) 06-03 n by mouth [facility] 10 MG 18:15: 00:00 daily. Medical tablet 04 :00 [facility] hydroCHLORO 2021-05 No 25mg QD Take [address] thiazide 06-03 by mouth [facility] (HYDRODIURI 18:15: 00:00 daily. Med ical L) 25 MG 04 :00 [facility] tablet amLODIPine 2021-05 hypertensio 10mg QD Take [address] (NORVASC) 06-03 n by mouth [facility] 10 MG 18:15: 00:00 daily. Medical tablet 04 :00 [facility] hydroCHLORO 2021-05 No 25mg QD Take [address] thiazide 06-03 by mouth [facility] (HYDRODIURI 18:15: 00:00 daily. Med ical L) 25 MG 04 :00 [facility] tablet aspirin 81 2021-05- No 81mg QD Take [address] MG chewable 06-03 tablet (81 L ukes tablet 00:00: 23:59 mg total) Medic al 00 :00 by mouth Gardner daily for 30 days. aspirin 81 2021-05- No 81mg QD Take [address] MG chewable 06-03 tablet (81 L ukes tablet 00:00: 23:59 mg total) Medic al 00 :00 by mouth Center daily for 30 days. atorvastati 2021-05 No 80mg QD Take [address] n (LIPITOR) 06-02 tablet (80 L ukes 80 MG 00:00: 23:59 mg total) Medica l tablet 00 :00 by mouth Center nightly for 30 days. atorvastati 2021-05 No 80mg QD Take [address] n (LIPITOR) 06-02 tablet (80 L ukes 80 MG 00:00: 23:59 mg total) Medica l tablet 00 :00 by mouth Center nightly for 30 days. Vital Signs Vital Name Observation Time Observation Value Comments Source HEIGHT 2022-03-24 09:24:00 167.6 cm WEIGHT 2022-03-24 09:24:00 104.327 kg HEIGHT 2022-03-24 09:24:00 167.6 cm WEIGHT 2022-03-24 09:24:00 104.327 kg HEIGHT 2022-03-24 09:24:00 167.6 cm WEIGHT 2022-03-24 09:24:00 104.327 kg Systolic blood 2022-04-02 12:28:00 158 mm[Hg] [facility] Diastolic blood 2022-04-02 12:28:00 85 mm[Hg] [facility] Heart rate 2022-04-02 12:28:00 85 /min [facility] Respiratory rate 2022-04-02 12:28:00 18 /min [facility] Oxygen saturation in 2022-04-02 12:28:00 98 /min [facility] Arterial blood by Medical Ce nter Pulse oximetry Body temperature 2022-04-02 07:45:00 35.78 Gricelda [facility] Body height 2022-03-24 09:24:00 167.6 cm [facility] Body weight 2022-03-24 09:24:00 104.327 kg [facility] BMI 2022-03-24 09:24:00 37.12 kg/m2 [facility] Procedures Procedure Date / Time Performing Clinician Source Performed TRANSESOPHAGEAL ECHO 2022-04-02 11:18:06 Moe Fish [facility] TRANSESOPHAGEAL ECHO 2022-04-02 11:18:06 Ellie [facility] BASIC METABOLIC PANEL 2022-04-02 05:16:00 Kong Ramirez [facility] CBC W/PLT COUNT & AUTO 2022-04-02 05:16:00 Kong Ramirez [facility] MAGNESIUM 2022-04-02 05:16:00 Kong Ramirez [facility] PHOSPHORUS 2022-04-02 05:16:00 Kong Ramirez [facility] CBC W/PLT COUNT & AUTO 2022-04-02 05:16:00 James [facility] COLOR-FLOW MAPPING 2022-04-01 16:52:47 [facility] CONT WAVE PULSED DOPPLER 2022-04-01 16:52:47 [facility] COLOR-FLOW MAPPING 2022-04-01 16:52:47 [facility] CONT WAVE PULSED DOPPLER 2022-04-01 16:52:47 [facility] BAS[facility]OLIC PANEL 2022-04-01 05:28:00 Kong Ramirez [facility] CBC W/PLT COUNT & AUTO 2022-04-01 05:28:00 Kong Ramirez [facility] MAGNESIUM 2022-04-01 05:28:00 Kong Ramirez [facility] PHOSPHORUS 2022-04-01 05:28:00 Kong Ramirez [facility] BETA-2 GLYCOPROTEIN 2022-04-01 05:28:[address] [facility] ANTIBODIES [facility] CARDIOLIPIN ANTIBODIES, 2022-04-01 05:28:[address] [facility] IGG AND IGM [facility] CRYOGLOBULIN 2022-04-01 05:28:00 baldomero Lucille [facility] CNTP-[id number] I IGG 2022-04-01 05:28:00 baldomero [facility] AVOR-7-[id number] I IGM 2022-04-01 05:28:00 [facility] URNO-6-[id number] I IGA 2022-04-01 05:28:00 [facility] CBC W/PLT COUNT & AUTO 2022-04-01 05:28:00 James Kong [facility] CT BRAIN WITHOUT IV 2022-03-31 16:55:00 [facility] nt BASIC METABOLIC PANEL 2022-03-31 06:29:00 Kong Ramirez [facility] CBC W/PLT COUNT & AUTO 2022-03-31 06:29:00 Kong Ramirez [facility] MAGNESIUM 2022-03-31 06:29:00 James Kong [facility] PHOSPHORUS 2022-03-31 06:29:00 James [facility] CBC W/PLT COUNT & AUTO 2022-03-31 06:29:00 James Kong [facility] HEMOGLOBIN A1C 2022-03-30 16:35:00 Noe [facility] CT BRAIN WITHOUT IV 2022-03-30 10:54:00 Moe Fish [facility] S t [facility] ANTI-SHAWN AB (KRUNAL, FARRIS) 2022-03-30 03:47:[address] [facility] BASIC METABOLIC PANEL 2022-03-30 03:47:00 Kong Ramirez [facility] CBC W/PLT COUNT & AUTO 2022-03-30 03:47:00 James Kong [facility] MAGNESIUM 2022-03-30 03:47:00 PostKong rivera [facility] PHOSPHORUS 2022-03-30 03:47:00 Kong Ramirez [facility] PT/APTT 2022-03-30 03:47:00 Berta Woodard [facility]in Mcmahon [facility] nter CBC W/PLT COUNT & AUTO 2022-03-30 03:47:00 Kong Ramirez [facility] PROTEIN ELECTROPHORESIS, 2022-03-29 16:43:[address] [facility] SERUM Bhumi Mcmahon [facility] nter ANGIOTENSIN CONVERTING 2022-03-29 16:43:[address] [facility] ENZYME (TJ) Bhumirafita Mcmahon [facility] nter MISCELLANEOUS LAB ORDER 2022-03-29 16:21:00 Moe Fish [facility] PT/APTT 2022-03-29 14:52:00 Berta Woodard [facility] Bhumi Triapthi [facility] nter BASIC METABOLIC PANEL 2022-03-29 04:50:00 Kong Ramirez [facility] CBC W/PLT COUNT & AUTO 2022-03-29 04:50:00 Kong Ramirez [facility] MAGNESIUM 2022-03-29 04:50:00 PostKong rivera [facility] PHOSPHORUS 2022-03-29 04:50:00 PostKong rivera [facility] CBC W/PLT COUNT & AUTO 2022-03-29 04:50:00 PostKong rivera [facility] CBC W/PLT COUNT & AUTO 2022-03-28 03:18:00 Kong Ramirez [facility] BASIC METABOLIC PANEL 2022-03-28 03:18:00 Kong Ramirez [facility] MAGNESIUM 2022-03-28 03:18:00 PostKong rivera [facility] PHOSPHORUS 2022-03-28 03:18:00 Kong Ramirez [facility] CBC W/PLT COUNT & AUTO 2022-03-28 03:18:00 Angelica Jin [facility] MR BRAIN WITHOUT IV 2022-03-27 09:04:00 Denis Gomez [facility] URINALYSIS W/ REFLEX URINE 2022-03-27 01:03:00 Du Sweet [facility] CBC W/PLT COUNT & AUTO 2022-03-27 01:00:00 Sangeeta Sweet [facility] PROCALCITONIN 2022-03-27 01:00:00 [facility] LACTIC ACID, VENOUS 2022-03-27 01:00:00 [place] Sangeeta [facility] BASIC METABOLIC PANEL 2022-03-27 01:00:00 Kong Ramirez [facility] MAGNESIUM 2022-03-27 01:00:00 Kong Ramirez [facility] PHOSPHORUS 2022-03-27 01:00:00 Kong Ramirez [facility] CBC W/PLT COUNT & AUTO 2022-03-27 01:00:00 Sangeeta Sweet CH, I [facility] BLOOD CULTURE 2022-03-27 00:59:00 Sangeeta Sweet [facility] ECG 12-LEAD 2022-03-26 18:12:34 Unknown, Hl7 [facility] ECG 12-LEAD 2022-03-26 18:12:34 Unknown, 7 [facility] ECG 12-LEAD 2022-03-26 18:12:34 Unknown, 7 [facility] ECG 12-LEAD 2022-03-26 18:11:[address] [facility] ECG 12-LEAD 2022-03-26 18:11:18 Unknown, 7 [facility] ECG 12-LEAD 2022-03-26 18:11:18 Unknown, 7 [facility] SARS-COV2/INFLUENZA/RSV 2022-03-26 17:39:[address] [facility] RT-PCR [facility] XR CHEST 1 VIEW PORTABLE / 2022-03-26 17:32:00 Roe Schultz [facility] HIGH SENSITIVITY TROPONIN 2022-03-26 17:27:00 Roe Schultz CH I [facility] 2D ECHO W/ DOPPLER 2022-03-26 14:07:[address] [facility] (CW/PW/COLOR) [facility] 2D ECHO W/ DOPPLER 2022-03-26 14:07:08 DavinAngelica fischer [facility] [place] [facility] (CW/PW/COLOR) [facility] BASIC METABOLIC PANEL 2022-03-26 03:24:00 Kong Ramirez [facility] CBC W/PLT COUNT & AUTO 2022-03-26 03:24:00 Kong Ramirez [facility] MAGNESIUM 2022-03-26 03:24:00 Kong Ramirez [facility] PHOSPHORUS 2022-03-26 03:24:00 Kong Ramirez [facility] CBC W/PLT COUNT & AUTO 2022-03-26 03:24:00 Angelica [facility] DIFFERENTIAL [facility] [place] CEREBRAL 4 VESSEL 2022-03-25 13:50:[address] [facility] ANGIOGRAM [facility] BASIC METABOLIC PANEL 2022-03-25 03:32:00 Kong Ramirez [facility] LIPID PANEL 2022-03-25 03:32:00 Angelica Jin [facility] CBC W/PLT COUNT & AUTO 2022-03-25 03:32:00 Kong Ramirez [facility] CBC W/PLT COUNT & AUTO 2022-03-25 03:32:00 [facility]ica [facility] DIFFERENTIAL [facility] COMPLEMENT COMPONENT C4 2022-03-24 18:59:00 Angelica Jin [facility] HC LAB HIV-1 AG W/HIV-1&2 2022-03-24 18:59:00 Angelica Jin [facility] AB [facility] HOMOCYSTEINE 2022-03-24 18:59:[address] [facility] DOUBLE-STRANDED DNA 2022-03-24 18:59:00 Wil Leiva [facility] (DSDNA) ANTIBODY [facility] ECG 12-LEAD 2022-03-24 18:05:38 Unknown, Hl7 [facility] ECG 12-LEAD 2022-03-24 18:05:38 Unknown, Hl7 [facility] ECG 12-LEAD 2022-03-24 18:05:12 Antoine Roe [facility] ECG 12-LEAD 2022-03-24 18:05:12 Unknown, 7 [facility] ECG 12-LEAD 2022-03-24 18:05:12 Unknown, 7 [facility] HEMOGLOBIN A1C 2022-03-24 14:34:00 Castro [facility] DRUG TEST, GENERAL 2022-03-24 12:01:00 Rakesh Medina [facility] TOXICOLOGY, URINE [facility] HIGH SENSITIVITY TROPONIN 2022-03-24 12:01:00 Wanda Erazo [facility] VITAMIN B12 2022-03-24 12:01:00 Wanda Erazo [facility] ANTI-NUCLEAR ANTIBODY 2022-03-24 12:01:00 Jamil [facility] (ADAM) [facility] C-REACTIVE PROTEIN 2022-03-24 12:01:00 Elizabeth [facility] ANTI-NEUTROPHIL 2022-03-24 12:01:00 [facility] CYTOPLASMIC AB (ANCA) [facility] nter RHEUMATOID FACTOR AB, 2022-03-24 12:01:00 Angelica Jin [facility] REFLEX TO TITER [facility] SARS-COV2/RT-PCR ([facility] & 2022-03-24 09:25:00 Pankaj Tripathi [facility] REF LABS) [facility] CBC W/PLT COUNT & AUTO 2022-03-24 09:25:00 Pankaj Tripathi [facility] COMPREHENSIVE METABOLIC 2022-03-24 09:25:00 Pankaj Tripathi [facility] MAGNESIUM 2022-03-24 09:25:00 Pankaj Tripathi [facility] PROTHROMBIN TIME/INR 2022-03-24 09:25:00 Pankaj Tripathi [facility] PHOSPHORUS 2022-03-24 09:25:00 Pankaj Tripathi [facility] TSH/FREE T4 IF INDICATED 2022-03-24 09:25:00 Pankaj Tripathi [facility] CBC W/PLT COUNT & AUTO 2022-03-24 09:25:00 Pankaj Tripathi [facility] CT BRAIN/STROKE TEST 2022-03-24 09:23:[address] [facility] CTA BRAIN 2022-03-24 09:23:00 Pankaj Tripathi [facility] CT BRAIN CEREBRAL 2022-03-24 09:23:00 Pankaj Tripathi [facility] PERFUSION ANALYSIS Medical Cente r CTA CAROTID 2022-03-24 09:23:00 Pankaj Tripathi [facility] Plan of Care Planned Activity Planned Date Details Comments Source Future Scheduled 2025-03-25 Lipid panel (procedure) [facility] Test 00:00:00 [code = 99898352] Medical Ce nter Future Scheduled 2025-03-25 Lipid panel (procedure) [facility] Test 00:00:00 [code = 45973929] Medical Ce nter Future Scheduled 2023-03-[address] [facility] Test 00:00:00 Counseling [facility] Medical Cente r Screening (12+) [code = Tobacco Cessation Counseling and Screening (12+)] Future Scheduled 2023-01-[address] [facility] Test 00:00:00 (Season Ended) [code = [facility] Influenza Vaccine (Season Ended)] Future Scheduled 2022-05-[address] [facility] Test 00:00:00 (12+) [code = Medical Center DEPRESSION SCREENING (12+)] Future Scheduled 2022-01-24 INFLUENZA VACCINE (#1) [facility] 00:00:00 [code = INFLUENZA Medical Ce nter VACCINE (#1)] Future Scheduled 2021-05-[address] [facility] Test 00:00:00 (12+) [code = Medical Center DEPRESSION SCREENING (12+)] Future Scheduled 1993 DTAP/TDAP/TD VACCINES [facility] 00:00:00 (1 - Tdap) [code = Medical C enter DTAP/TDAP/TD VACCINES (1 - Tdap)] Future Scheduled 1993 DTAP/TDAP/TD VACCINES [facility] 00:00:00 (1 - Tdap) [code = Medical C enter DTAP/TDAP/TD VACCINES (1 - Tdap)] Future Scheduled 1992 HEPATITIS C SCREENING [facility] 00:00:00 [code = HEPATITIS C Medical Center SCREENING] Future Scheduled 1992 HEPATITIS C [facility]CRE[facility]ING [facility] 00:00:00 [code = HEPATITIS C Medical Center SCREENING] Future Scheduled [address] [facility] Test 00:00:00 Counseling [facility] Medical Cente r Screening (12+) [code = Tobacco Cessation Counseling and Screening (12+)] Future Scheduled 1974 COVID-19 VACCINE (#1) [facility] 00:00:00 [code = COVID-[address] VACCINE (#1)] Future Scheduled 1974 COVID-19 VACCINE (#1) [facility] 00:00:00 [code = COVID-[address] VACCINE (#1)] Future Scheduled 1974 CT Colonography (combo) [facility] Test 00:00:00 [code = CT Colonography [facility] (combo)] Future Scheduled 1974 Screening for malignant [facility] Test 00:00:00 neoplasm of colon Medical Ce nter (procedure) [code = 600279373] Future Scheduled 1974 Screening for malignant [facility] Test 00:00:00 neoplasm of colon Medical Ce nter (procedure) [code = 929143730] Future Scheduled 1974 Screening for malignant [facility] Test 00:00:00 neoplasm of colon Medical Ce nter (procedure) [code = 976828048] Future Scheduled 1974 Screening for malignant [facility] Test 00:00:00 neoplasm of colon Medical Ce nter (procedure) [code = 194068724] Future Scheduled 1975 Sigmoidoscopy [code = [facility] 00:00:00 Sigmoidoscopy] Medical Cente r Future Scheduled 1974 CT Colonography (combo) [facility] Test 00:00:00 [code = CT Colonography [facility] (combo)] Future Scheduled 1974 Screening for malignant [facility] Test 00:00:00 neoplasm of colon Medical Ce nter (procedure) [code = 746245411] Future Scheduled 1974 Screening for malignant [facility] Test 00:00:00 neoplasm of colon Medical Ce nter (procedure) [code = 263188734] Future Scheduled 1974 Screening for malignant [facility] Test 00:00:00 neoplasm of colon Medical Ce nter (procedure) [code = 359532705] Future Scheduled 1974 Screening for malignant [facility] Test 00:00:00 neoplasm of colon Medical Ce nter (procedure) [code = 498092017] Future Scheduled 1975 Sigmoidoscopy [code = [facility] 00:00:00 Sigmoidoscopy] Medical Cente r Encounters Start End Encounter Admission Attending Care Care Encounter Source Date/Time Date/Time Type Type Clinicians Facility Department ID 2022-03-24 Emergency [facility] [id number] TJ - 09:25:22 [facility] ent 2022-04-11 2022-04-11 Outpatient [facility] [id number] [facility] 12:18:22 12:43:18 GABRIELLA simpson of Medicin e 2022-03-24 2022-04-02 [facility] Pankaj Tripathi [facility] [id number] 08:45:00 18:15:00 [facility] Suzette Spicer Alireza 2022-03-24 2022-04-02 [facility] Pankaj Tripathi [facility] [id number] [facility] 08:45:00 18:15:00 Encounter Eloise Sherwood [facility]oe 2022-03-24 2022-04-[address] [facility] Emergency [id number] SLE 08:45:00 18:15:00 MOE 2022-03-25 2022-03-25 Surgery Virtual, [facility] [id number] 12:00:00 14:15:00 Surgeon [facility] 2022-03-25 2022-03-25 Surgery Virtual, [facility] [id number] 12:00:00 14:15:00 [facility] 2022-03-25 2022-03-25 Anesthesia Ani, [facility] [id number] 13:00:00 13:00:00 Event [facility] 2022-03-25 2022-03-25 Anesthesia Ani, [facility] [id number] 13:00:00 13:00:00 Event [facility] 2022-03-24 2022-03-24 Outpatient BCM BCM [id number] [facility] 00:00:00 23:59:00 Dinora 2022-03-24 2022-03-24 Orders [facility] [id number] 00:00:00 00:00:00 Only [facility] 2022-03-24 2022-03-24 Travel [facility] [id number] [facility] 00:[facility]:00 00:00:00 [facility] 2022-03-24 2022-03-24 Orders [facility] [id number] 00:00:00 00:00:00 Only [facility] 2022-03-24 2022-03-24 Travel [facility] [id number] [facility] 00:00:00 00:00:00 [facility] Results Test Description Test Time Test Comments Results Result [facility] e Comments [place], ANGIOGRAM, 2022-05-08 Reason for CEREBRAL 09:51:00 exam:->intracran ial hemorrhage [facility] 1975 Sex: M Adden dum BeginsREPORT STATUS:A Date of procedure: 03/25/2022 Signed: Gabriella Regalado MDReport Verified Date/Time: 05/08/2022 09:51:04 [facility] Reading RoomAddendum EndsFINAL REPORT DATE OF PROCEDURE: SURGEON: Gabriella Regalado MD ROTOR CASTING MACHINE OPERATOR: COBY Patel MD PREOPERATIVE DIAGNOSIS: Right MCA occlusion, 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 disease POST OPERATIVE DIAGNOSIS: Right distal internal carotid artery occlusion PROCEDURE: Diagnostic cerebral angiogram ANESTHESIA: Conscious sedation ESTIMATED BLOOD LOSS: < 20 cc COMPLICATIONS: Small right groin hematoma Devices Employed:5F sheathBentson WireTerumo Thornburg CatheterTerumo Thornburg wireVascade Closure Device Vessels catheterizedRight common carotid arteryLeft common carotid arteryLeft internal carotid arteryLeft vertebral arteryRight femoral artery INDICATIONS: The patient is a 47-year-old male with hypertension and diffuse atopic dermatitis presenting with sudden onset left facial droop and left hand weakness that has progressed the left arm weakness. CTA with multiple bilateral intracranial arteries with narrowing concerning for vasculopathy or moyamoya disease. CONSENT: The risks and benefits of the procedure were discussed with the patient and his/her family. These include but are not limited to infection, bleeding, stroke, , vessel injury, groin hematoma, retroperitoneal hematoma and need for additional treatment and/or therapy. The questions were answered. They understood and wished to proceed. PROCEDURE IN DETAIL A time-out was performed. Both groins were prepped in the usual sterile fashion using Chloraprep, and sterilely draped. The skin over the right femoral artery was anesthetized with 1% lidocaine. A single wall puncture of the right femoral artery was performed using a micropuncture set and dilator and a 5-Fr short sheath was inserted into the right common femoral artery and maintained on heparinized flush. Using coaxial technique, a 5-Fr Angled glide catheter was advanced into the descending aorta, back-bled, and flushed in the usual fashion. Using coaxial technique, the catheter was advanced into the aortic arch, and with the aid of the roadmapping, digital fluoroscopy, and careful guidewire manipulation the above arteries were catheterized. Upon each successive selective catheterization, digital subtraction angiography using the appropriate rate and volume of contrast in multiple projections was performed. The catheter was removed. The sheath was removed and hemostasis was achieved with a vascade closure device. The patient tolerated the procedure well and was taken to the neuro ICU in stable condition. Endovascular Intervention: FINDINGS: RIGHT COMMON FEMORAL ARTERY (DSA - AP, LATERAL - ILIAC) The sheath enters above the femoral bifurcation. The femoral artery and bifurcation are widely patent without evidence of ulceration or stenosis. RIGHT COMMON CAROTID ARTERY (DSA - AP, LATERAL - CERVICAL) Under fluoroscopic guidance, the catheter was advanced into the right common carotid artery. PA and lateral projections demonstrate antegrade flow into the right common and internal carotid arteries and the right external carotid artery. The right internal carotid artery is noted ot be occluded just distal to the right ophthalmic artery. RIGHT COMMON CAROTID ARTERY (DSA - AP, LATERAL - HEAD) Under fluoroscopic guidance, a catheter was advanced into the right common carotid artery. PA and lateral projections demonstrate antegrade flow into the intracranial segments of the internal carotid artery, middle and anterior cerebral artery. Again noted is the right internal carotid artery occlusion just distal to the right ophthalmic artery, which shows markedly delayed filling.. No aneurysms, arteriovenous shunting, dissection is appreciated. Venous phase images are balanced over the convexity. PA and lateral projections demonstrate antegrade flow into the external carotid segments of the carotid artery, with the superficial temporal artery branches appearing relatively small.. The visualized portions of the right external carotid artery and its branches are normal in course and caliber. There is no evidence of arteriovenous shunting. The venous phase is normal. LEFT COMMON CAROTID ARTERY (DSA - AP, LATERAL - CERVICAL) Under fluoroscopic guidance, the catheter was advanced into the left common carotid artery. PA and lateral projections demonstrate antegrade flow into the left common and internal carotid arteries and the left external carotid artery. There is no vessel stenosis or vasospasm. LEFT INTERNAL CAROTID ARTERY (DSA - AP, LATERAL - HEAD) Under fluoroscopic guidance, a catheter was advanced into the left internal carotid artery. PA and lateral projections demonstrate antegrade flow into the intracranial segments of the internal carotid artery and middle carotid artery, while the anterior cerebral artery filling is minimal and its territory is fed by pial collaterals. There is a small posterior communicating artery. There is no appreciable filling across the anterior communicating artery. No aneurysms, arteriovenous shunting, dissection is appreciated. Venous phase images are balanced over the convexity. LEFT VERTEBRAL ARTERY (DSA - AP, LATERAL - HEAD) Under fluoroscopic guidance, the catheter was advanced into the left vertebral artery. PA and lateral projections of the cranium demonstrate antegrade flow into the left vertebral and basilar arteries. The left vertebral artery is patent without significant stenotic lesion. The left posterior inferior cerebellar artery is normal in course and caliber. The basilar artery shows no significant abnormality. There is minimal filling of the left posterior cerebral artery, while the right posterior cerebral artery supplies much of the middle cerebral artery territory via collaterals from the posterior temporal arteries, the pericallosal, and a small amount of filling of the SOPHY via the posterior communicating artery. The anterior inferior cerebellar arteries are normal in course and caliber. The superior cerebellar arteries are normal in course and caliber. There is minimal contrast reflux into the right vertebral artery. No aneurysm, vascular malformation, or arteriovenous shunt is noted. No significant abnormalities are seen in the capillary and venous phases. The venous phase demonstrates patent transverse and sigmoid sinuses. Angiographic study demonstrates: 1. 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 2. Filling of the right hemisphere circulation via collaterals from the right [employer], namely the posterior temporal artery branches to the pericallosal and a small amount amount to the anterior cerebral artery via the posterior communicating artery. 3. No clear moyamoya collateral development. No immediate technical or clinical complications. SUPERVISION Dr. Regalado was present for the entirety of the case. Signed: Gabriella Regalado MDReport Verified Date/Time: 03/26/2022 10:23:38 Reading Location: [facility] B1 Y026 Neuro Angio Reading Room 2022-04-04 10:29:41 Test Item Value Reference Range Interpretation Comme nts Scan Result (test code = 4079230) See scanned report CHIKA (test code = CHIKA) [facility] scanned report [facility] 10:29:41 Test Item Value Reference Range Interpretation Comments Scan Result (test code = See scanned report [id number]) CHIKA (test code = CHIKA) See scanned report [facility] [id number] 10:29:41 Test Item Value Reference Range Interpretation Comments SCAN RESULT (test code = See scanned report [id number]) See scanned reportPROTEIN ELECTROPHORESIS, SERUM WITH REFLEX TO IMMUNOTYPING 2022-04-02 17:54:05 Test Item Value Reference Range Interpretation Comments ALBUMIN FRACTION 3.4 gm/dL 3.5-5.5 L (BEAKER) (test code = 405) ALPHA 1 FRACTION 0.4 gm/dL 0.2-0.4 (BEAKER) (test code = 389) ALPHA 2 FRACTION 0.7 gm/dL 0.4-1.0 (BEAKER) (test code = 390) BETA FRACTION 1.0 gm/dL 0.5-1.1 (BEAKER) (test code = 392) GAMMA GLOBULIN 0.9 gm/dL 0.7-1.6 FRACTION (BEAKER) (test code = 391) INTERPRETATION-119 An essentially normal (BEAKER) (test code = serum protein study. 9965) [id number] Aram Corbin M.D. (BEAKER) (test code = 2616) PROTEIN TOTAL SERUM, 6.4 gm/dL 6.0-8.3 SPEP (BEAKER) (test code = 9612) Clinical Sap Hana Developer - SFOperator ID - ADMINOperator ID - CLAY WOperator ID - ADMOperator ID - ADMOperator ID - ADMOperator ID - ADMOperator ID - ADMOperator ID - ADMTransesophageal [id number] 17:18:35Ejection FractionSLEH ECHO HEARTLAB MKCKESSON [facility] 2022-04-02 17:18:35Ejection FractionSLEH ECHO HEARTLAB MKCKESSON [facility]2022-11-08 07:22:49 Test Item Value Reference Range Interpretation Comments PHOSPHORUS (BEAKER) 3.5 mg/dL 2.3-4.7 Specimen slightly (test code = 604) hemolyzed Pad Making Machine Operator ID - LIDIA LBASIC METABOLIC [id number] 07:22:49 Test Item Value Reference Range Interpretation Comments SODIUM (BEAKER) 137 meq/L 136-145 (test code = 381) POTASSIUM 4.1 meq/L 3.5-5.1 Specimen slight ly (BEAKER) (test hemolyzed code = 379) CHLORIDE (BEAKER) 102 meq/L 98-107 (test code = 382) CO2 (BEAKER) 23 meq/L 22-29 (test code = 355) BLOOD UREA 13 mg/dL 7-21 NITROGEN (BEAKER) (test code = 354) CREATININE 0.82 mg/dL 0.57-1.25 Specimen slight ly (BEAKER) (test hemolyzed code = 358) GLUCOSE RANDOM 88 mg/dL 70-105 (BEAKER) (test code = 652) CALCIUM (BEAKER) 9.6 mg/dL 8.4-10.2 (test code = 697) EGFR (BEAKER) 109 Interpretatio n of eGFR (test code = mL/min/1.73 values Stage De scription 1092) sq m Result G1 Lilliam l or high >=90 G2 Mildly decreased 60-89 G3a Mildl y to moderately 45-5 9 G3b Moderately to s everely 30-44 G4 Severl y decreased 15-29 G5 Kidney failure <15Reported eGF R is based on the CKD-EPI 2020 equation that d oes not use a race coefficientEsti mated GFR is not as accur ate as Creatinine Lorie marie in predicting glom erular filtration rate . Estimated GFR is not appl icable for dialysis patien ts Pad Making Machine Operator ID - PIBEL [id number] 07:22:48 Test Item Value Reference Range Interpretation Comments MAGNESIUM (BEAKER) 2.2 mg/dL 1.6-2.6 Specimen slightly (test code = 627) hemolyzed Pad Making Machine Operator ID - PIAYA LCBC W/PLT COUNT & AUTO [id number] 06:38:55 Test Item Value Reference Range Interpretation Comments WHITE BLOOD CELL COUNT (BEAKER) 5.3 K/ L 3.5-10.5 (test code = 775) RED BLOOD CELL COUNT (BEAKER) 5.00 M/ L 4.63-6.08 (test code = 761) HEMOGLOBIN (BEAKER) (test code = 15.1 GM/DL 13.7-17.5 410) HEMATOCRIT (BEAKER) (test code = 44.1 % 40.1-51.0 411) MEAN CORPUSCULAR VOLUME (BEAKER) 88 fL 79-92 (test code = 753) MEAN CORPUSCULAR HEMOGLOBIN 30.2 pg 25.7-32.2 (BEAKER) (test code = 751) MEAN CORPUSCULAR HEMOGLOBIN CONC 34.2 GM/DL 32.3-36.5 (BEAKER) (test code = 752) RED CELL DISTRIBUTION WIDTH 12.8 % 11.6-14.4 (BEAKER) (test code = 412) PLATELET COUNT (BEAKER) (test 325 K/CU MM 150-450 code = 756) MEAN PLATELET VOLUME (BEAKER) 10.4 fL 9.4-12.4 (test code = 754) NUCLEATED RED BLOOD CELLS 0 /100 WBC 0-0 (BEAKER) (test code = 413) NEUTROPHILS RELATIVE PERCENT 64 % (BEAKER) (test code = 429) LYMPHOCYTES RELATIVE PERCENT 21 % (BEAKER) (test code = 430) MONOCYTES RELATIVE PERCENT 10 % (BEAKER) (test code = 431) EOSINOPHILS RELATIVE PERCENT 3 % (BEAKER) (test code = 432) BASOPHILS RELATIVE PERCENT 1 % (BEAKER) (test code = 437) NEUTROPHILS ABSOLUTE COUNT 3.43 K/ L 1.78-5.38 (BEAKER) (test code = 670) LYMPHOCYTES ABSOLUTE COUNT 1.14 K/ L 1.32-3.57 L (BEAKER) (test code = 414) MONOCYTES ABSOLUTE COUNT (BEAKER) 0.52 K/ L 0.30-0.82 (test code = 415) EOSINOPHILS ABSOLUTE COUNT 0.17 K/ L 0.04-0.54 (BEAKER) (test code = 416) BASOPHILS ABSOLUTE COUNT (BEAKER) 0.04 K/ L 0.01-0.08 (test code = 417) IMMATURE GRANULOCYTES-RELATIVE 0.40 % 0.00-1.00 PERCENT (BEAKER) (test code = 2801) CARDIOLIPIN ANTIBODIES, IGG AND [id number] 12:13:28 Test Item Value Reference Range Interpretation Comments ANTICARDIOLIPIN IGG ANTIBODY (BEAKER) < GPL <20.0 (test code = 712) ANTICARDIOLIPIN IGM ANTIBODY (BEAKER) < MPL <20.0 (test code = 713) Anticardiolipin IgG Result Interpretation: <20.0 GPL Normal>/= 20.0 GPL PositiveAnticardiolipin IgM Result Interpretation: <20.0 MPL Normal>/= 20.0 MPL [id number] 07:32:29 Test Item Value Reference Range Interpretation Comments PHOSPHORUS (BEAKER) (test code = 3.5 mg/dL 2.3-4.7 604) Pad Making Machine Operator ID - PIAYA LBASIC METABOLIC [id number] 07:32:28 Test Item Value Reference Range Interpretation Comments SODIUM (BEAKER) 137 meq/L 136-145 (test code = 381) POTASSIUM 4.0 meq/L 3.5-5.1 (BEAKER) (test code = 379) CHLORIDE (BEAKER) 103 meq/L 98-107 (test code = 382) CO2 (BEAKER) 26 meq/L 22-29 (test code = 355) BLOOD UREA 11 mg/dL 7-21 NITROGEN (BEAKER) (test code = 354) CREATININE 0.79 mg/dL 0.57-1.25 (BEAKER) (test code = 358) GLUCOSE RANDOM 97 mg/dL 70-105 (BEAKER) (test code = 652) CALCIUM (BEAKER) 9.0 mg/dL 8.4-10.2 (test code = 697) EGFR (BEAKER) 110 Interpretatio n of eGFR (test code = mL/min/1.73 values Stage De scription 1092) sq m Result G1 Lilliam l or high >=90 G2 Mildly decreased 60-89 G3a Mildl y to moderately 45-5 9 G3b Moderately to s everely 30-44 G4 Severl y decreased 15-29 G5 Kidney failure <15Reported eGF R is based on the CKD-EPI 2020 equation that d oes not use a race coefficientEsti mated GFR is not as accur ate as Creatinine Lorie marie in predicting glom erular filtration rate . Estimated GFR is not appl icable for dialysis patien ts Pad Making Machine Operator ID - LIDIA [id number] 07:32:28 Test Item Value Reference Range Interpretation Comments MAGNESIUM (BEAKER) (test code = 2.0 mg/dL 1.6-2.6 627) Pad Making Machine Operator ID - LIDIA LCBC W/PLT COUNT & AUTO [id number] 05:47:08 Test Item Value Reference Range Interpretation Comments WHITE BLOOD CELL COUNT (BEAKER) 5.9 K/ L 3.5-10.5 (test code = 775) RED BLOOD CELL COUNT (BEAKER) 4.50 M/ L 4.63-6.08 L (test code = 761) HEMOGLOBIN (BEAKER) (test code = 13.3 GM/DL 13.7-17.5 L 410) HEMATOCRIT (BEAKER) (test code = 39.2 % 40.1-51.0 L 411) MEAN CORPUSCULAR VOLUME (BEAKER) 87 fL 79-92 (test code = 753) MEAN CORPUSCULAR HEMOGLOBIN 29.6 pg 25.7-32.2 (BEAKER) (test code = 751) MEAN CORPUSCULAR HEMOGLOBIN CONC 33.9 GM/DL 32.3-36.5 (BEAKER) (test code = 752) RED CELL DISTRIBUTION WIDTH 12.7 % 11.6-14.4 (BEAKER) (test code = 412) PLATELET COUNT (BEAKER) (test 273 K/CU MM 150-450 code = 756) MEAN PLATELET VOLUME (BEAKER) 10.3 fL 9.4-12.4 (test code = 754) NUCLEATED RED BLOOD CELLS 0 /100 WBC 0-0 (BEAKER) (test code = 413) NEUTROPHILS RELATIVE PERCENT 65 % (BEAKER) (test code = 429) LYMPHOCYTES RELATIVE PERCENT 20 % (BEAKER) (test code = 430) MONOCYTES RELATIVE PERCENT 11 % (BEAKER) (test code = 431) EOSINOPHILS RELATIVE PERCENT 3 % (BEAKER) (test code = 432) BASOPHILS RELATIVE PERCENT 1 % (BEAKER) (test code = 437) NEUTROPHILS ABSOLUTE COUNT 3.84 K/ L 1.78-5.38 (BEAKER) (test code = 670) LYMPHOCYTES ABSOLUTE COUNT 1.16 K/ L 1.32-3.57 L (BEAKER) (test code = 414) MONOCYTES ABSOLUTE COUNT (BEAKER) 0.65 K/ L 0.30-0.82 (test code = 415) EOSINOPHILS ABSOLUTE COUNT 0.19 K/ L 0.04-0.54 (BEAKER) (test code = 416) BASOPHILS ABSOLUTE COUNT (BEAKER) 0.05 K/ L 0.01-0.08 (test code = 417) IMMATURE GRANULOCYTES-RELATIVE 0.30 % 0.00-1.00 PERCENT (BEAKER) (test code = 2801) BLOOD [id number] 01:00:19 Test Item Value Reference Range Interpretation Comments CULTURE (BEAKER) (test No growth in 5 days code = 1095) BLOOD [id number] 01:00:19 Test Item Value Reference Range Interpretation Comments CULTURE (BEAKER) (test No growth in 5 days code = 1095) CT, BRAIN, WITHOUT [id number] 17:01:00Rule out hemorrhagic conversion or worsening cerebral edema [facility] : 1975 Sex: MFINAL REPORT CT, BRAIN, WITHOUT CONTRAST CLINICAL INDICATION: Stroke, follow up COMPARISON: 03/30/2022 TECHNIQUE: Noncontrast axial CT imaging of the brain and skull. DOSE REDUCTION: Dose modulation, iterative reconstruction, and/or weight-based adjustment of the mA/kV was utilized to reduce the radiation dose to as low as reasonably achievable. FINDINGS:Evolving right MCA territory infarct (now subacute in age). There is localized mass effect with sulcal effacement but no midline shift or herniation. No hemorrhagic conversion. Moderate background senescent parenchymal volume loss. Scattered foci of hypoattenuation are present throughout the periventricular and subcortical white matter,and, although nonspecific by imaging, statistically represent mild chronic microvascular ischemic changes in this age group. No hydrocephalus. Orbits are within normal limits. Opacification of the leftfrontal sinus, left ethmoid air cells and left sphenoid sinus. Moderate mucosal thickening of the maxillary sinuses. Unchanged comminuted bilateral nasal bone fractures. IMPRESSION: 1.Evolving right MCA territory infarct (now subacute in age). There is localized mass effect with sulcal effacement but no midline shift or herniation. No hemorrhagic conversion.2.Unchanged comminuted bilateral nasal bonefractures. If there is persistent clinical concern for intracranial pathology, MR examination is recommended for further characterization. Signed: Iwona Hernandez MDReport Verified Date/Time: 03/31/2022 17:01:02 HEMOGLOBIN A1C 2022-03-31 09:38:21 Test Item Value Reference Range Interpretation Comments HEMOGLOBIN A1C 5.3 % See_Comment [Automated m essage] ELECTROPHORESIS (BEAKER) The system which (test code = 3811) generated this result transmitted ref erence range: <=5.6%. The reference range was not used to int erpret this result as normal/abnormal . "The A1c is measured using a NGSP-certified method. HbA1c value equal to or greater than 6.5% as thediagnosis cutoff for diabetes. An HbA1c value of 5.7- 6.4% indicates increased risk for diabetes (prediabetes)."Pad Making Machine Operator ID - ADM [id number] 08:51:56 Test Item Value Reference Range Interpretation Comments PHOSPHORUS (BEAKER) (test code = 3.2 mg/dL 2.3-4.7 604) Pad Making Machine Operator ID - ZAFAR WBASIC METABOLIC [id number] 08:51:55 Test Item Value Reference Range Interpretation Comments SODIUM (BEAKER) 138 meq/L 136-145 (test code = 381) POTASSIUM 4.0 meq/L 3.5-5.1 (BEAKER) (test code = 379) CHLORIDE (BEAKER) 103 meq/L 98-107 (test code = 382) CO2 (BEAKER) 26 meq/L 22-29 (test code = 355) BLOOD UREA 10 mg/dL 7-21 NITROGEN (BEAKER) (test code = 354) CREATININE 0.82 mg/dL 0.57-1.25 (BEAKER) (test code = 358) GLUCOSE RANDOM 96 mg/dL 70-105 (BEAKER) (test code = 652) CALCIUM (BEAKER) 9.3 mg/dL 8.4-10.2 (test code = 697) EGFR (BEAKER) 109 Interpretatio n of eGFR (test code = mL/min/1.73 values Stage De scription 1092) sq m Result G1 Lilliam l or high >=90 G2 Mildly decreased 60-89 G3a Mildl y to moderately 45-5 9 G3b Moderately to s everely 30-44 G4 Severl y decreased 15-29 G5 Kidney failure <15Reported eGF R is based on the CKD-EPI 2020 equation that d oes not use a race coefficientEsti mated GFR is not as accur ate as Creatinine Lorie cynthia in predicting glom erular filtration rate . Estimated GFR is not appl icable for dialysis patien ts Pad Making Machine Operator ID - ZAFAR [id number] 08:51:55 Test Item Value Reference Range Interpretation Comments MAGNESIUM (BEAKER) (test code = 2.1 mg/dL 1.6-2.6 627) Pad Making Machine Operator ID - ZAFAR WCBC W/PLT COUNT & AUTO [id number] 06:40:29 Test Item Value Reference Range Interpretation Comments WHITE BLOOD CELL COUNT (BEAKER) 6.0 K/ L 3.5-10.5 (test code = 775) RED BLOOD CELL COUNT (BEAKER) 4.76 M/ L 4.63-6.08 (test code = 761) HEMOGLOBIN (BEAKER) (test code = 14.2 GM/DL 13.7-17.5 410) HEMATOCRIT (BEAKER) (test code = 42.1 % 40.1-51.0 411) MEAN CORPUSCULAR VOLUME (BEAKER) 88 fL 79-92 (test code = 753) MEAN CORPUSCULAR HEMOGLOBIN 29.8 pg 25.7-32.2 (BEAKER) (test code = 751) MEAN CORPUSCULAR HEMOGLOBIN CONC 33.7 GM/DL 32.3-36.5 (BEAKER) (test code = 752) RED CELL DISTRIBUTION WIDTH 13.0 % 11.6-14.4 (BEAKER) (test code = 412) PLATELET COUNT (BEAKER) (test 262 K/CU MM 150-450 code = 756) MEAN PLATELET VOLUME (BEAKER) 10.7 fL 9.4-12.4 (test code = 754) NUCLEATED RED BLOOD CELLS 0 /100 WBC 0-0 (BEAKER) (test code = 413) NEUTROPHILS RELATIVE PERCENT 67 % (BEAKER) (test code = 429) LYMPHOCYTES RELATIVE PERCENT 19 % (BEAKER) (test code = 430) MONOCYTES RELATIVE PERCENT 11 % (BEAKER) (test code = 431) EOSINOPHILS RELATIVE PERCENT 3 % (BEAKER) (test code = 432) BASOPHILS RELATIVE PERCENT 1 % (BEAKER) (test code = 437) NEUTROPHILS ABSOLUTE COUNT 4.02 K/ L 1.78-5.38 (BEAKER) (test code = 670) LYMPHOCYTES ABSOLUTE COUNT 1.17 K/ L 1.32-3.57 L (BEAKER) (test code = 414) MONOCYTES ABSOLUTE COUNT (BEAKER) 0.65 K/ L 0.30-0.82 (test code = 415) EOSINOPHILS ABSOLUTE COUNT 0.15 K/ L 0.04-0.54 (BEAKER) (test code = 416) BASOPHILS ABSOLUTE COUNT (BEAKER) 0.03 K/ L 0.01-0.08 (test code = 417) IMMATURE GRANULOCYTES-RELATIVE 0.30 % 0.00-1.00 PERCENT (BEAKER) (test code = 2801) CT, BRAIN, WITHOUT [id number] 11:27:00Reason for Exam (Free Text) - Addiitonal information for Radiologist->Rule out hydrocephalus, signs of increased intracranial pressure or worsening cytotoxic edema [facility] : 1975 Sex: MFINAL REPORT CT, BRAIN, WITHOUT CONTRAST CLINICAL INDICATION: Stroke, follow up COMPARISON: 03/24/2022 TECHNIQUE: Noncontrast axial CT imaging of the brain and skull. DOSE REDUCTION: Dose modulation, iterative reconstruction, and/or weight-based adjustment of the mA/kV was utilized to reduce the radiation dose to as low as reasonably achievable. FINDINGS:Evolving right MCA territory infarct (now subacute in age). There is localized mass effect with sulcal effacement but no midline shift or herniation. No hemorrhagic conversion. Moderate background senescent parenchymal volume loss. Scattered foci of hypoattenuation are present throughout the periventricular and subcortical white matter, and, although nonspecific by imaging, statistically represent mild chronic microvascular ischemic changes in this age group. No hydrocephalus. Orbits are within normal limits. Opacification of the left frontal sinus, left ethmoid air cells and left sphenoid sinus. Moderate mucosal thickening of the ma xillary sinuses. Unchanged comminuted bilateral nasal bone fractures. IMPRESSION: 1.Evolving right MCA territory infarct (now subacute in age). There is localized mass effect with sulcal effacement butno midline shift or herniation. No hemorrhagic conversion.2.Unchanged comminuted bilateral nasal bone fractures. If there is persistent clinical concern for intracranial pathology, MR examination is recommended for further characterization. Signed: Iwona Hernandez MDReport Verified Date/Time: 03/30/2022 11:27:23 MAGNESIUM 2022-03-30 04:32:20 Test Item Value Reference Range Interpretation Comments MAGNESIUM (BEAKER) 2.1 mg/dL 1.6-2.6 Specimen slightly (test code = 627) hemolyzed Pad Making Machine Operator ID - ZAFAR [id number] 04:32:20 Test Item Value Reference Range Interpretation Comments PHOSPHORUS (BEAKER) 3.7 mg/dL 2.3-4.7 Specimen slightly (test code = 604) hemolyzed Pad Making Machine Operator ID - ZAFAR WBASIC METABOLIC [id number] 04:32:20 Test Item Value Reference Range Interpretation Comments SODIUM (BEAKER) 139 meq/L 136-145 (test code = 381) POTASSIUM 3.9 meq/L 3.5-5.1 Specimen slight ly (BEAKER) (test hemolyzed code = 379) CHLORIDE (BEAKER) 104 meq/L 98-107 (test code = 382) CO2 (BEAKER) 26 meq/L 22-29 (test code = 355) BLOOD UREA 12 mg/dL 7-21 NITROGEN (BEAKER) (test code = 354) CREATININE 0.81 mg/dL 0.57-1.25 Specimen slight ly (BEAKER) (test hemolyzed code = 358) GLUCOSE RANDOM 102 mg/dL 70-105 (BEAKER) (test code = 652) CALCIUM (BEAKER) 9.0 mg/dL 8.4-10.2 (test code = 697) EGFR (BEAKER) 109 Interpretatio n of eGFR (test code = mL/min/1.73 values Stage De scription 1092) sq m Result G1 Lilliam l or high >=90 G2 Mildly decreased 60-89 G3a Mildl y to moderately 45-5 9 G3b Moderately to s everely 30-44 G4 Severl y decreased 15-29 G5 Kidney failure <15Reported eGF R is based on the CKD-EPI 2020 equation that d oes not use a race coefficientEsti mated GFR is not as accur ate as Creatinine Lorie cynthia in predicting glom erular filtration rate . Estimated GFR is not appl icable for dialysis patien ts Pad Making Machine Operator KELLI STEPHEN [id number] 04:24:16 Test Item Value Reference Range Interpretation Comments PROTIME (BEAKER) (test 14.6 seconds 11.9-14.2 H code = 759) INR (BEAKER) (test 1.16 See_Comment [Automat ed code = 370) message] The sy stem which generated this result transmitted reference range : <=5.90. The reference range was not used to interpret this result as normal/abnormal . PARTIAL THROMBOPLASTIN 34.8 seconds 22.5-36.0 TIME (BEAKER) (test code = 760) RECOMMENDED COUMADIN/WARFARIN INR THERAPY RANGESSTANDARD DOSE: 2.0 - 3.0 Includes: PROPHYLAXIS for venous thrombosis, systemic embolization; TREATMENT for venous thrombosis and/or pulmonary embolus.HIGH RISK: Target INR is 2.5-3.5 for patients with mechanical heart valves.CBC W/PLT COUNT & AUTO [id number] 04:20:12 Test Item Value Reference Range Interpretation Comments WHITE BLOOD CELL COUNT (BEAKER) 5.7 K/ L 3.5-10.5 (test code = 775) RED BLOOD CELL COUNT (BEAKER) 4.59 M/ L 4.63-6.08 L (test code = 761) HEMOGLOBIN (BEAKER) (test code = 13.7 GM/DL 13.7-17.5 410) HEMATOCRIT (BEAKER) (test code = 40.6 % 40.1-51.0 411) MEAN CORPUSCULAR VOLUME (BEAKER) 89 fL 79-92 (test code = 753) MEAN CORPUSCULAR HEMOGLOBIN 29.8 pg 25.7-32.2 (BEAKER) (test code = 751) MEAN CORPUSCULAR HEMOGLOBIN CONC 33.7 GM/DL 32.3-36.5 (BEAKER) (test code = 752) RED CELL DISTRIBUTION WIDTH 13.1 % 11.6-14.4 (BEAKER) (test code = 412) PLATELET COUNT (BEAKER) (test 210 K/CU MM 150-450 code = 756) MEAN PLATELET VOLUME (BEAKER) 11.2 fL 9.4-12.4 (test code = 754) NUCLEATED RED BLOOD CELLS 0 /100 WBC 0-0 (BEAKER) (test code = 413) NEUTROPHILS RELATIVE PERCENT 59 % (BEAKER) (test code = 429) LYMPHOCYTES RELATIVE PERCENT 23 % (BEAKER) (test code = 430) MONOCYTES RELATIVE PERCENT 13 % (BEAKER) (test code = 431) EOSINOPHILS RELATIVE PERCENT 4 % (BEAKER) (test code = 432) BASOPHILS RELATIVE PERCENT 1 % (BEAKER) (test code = 437) NEUTROPHILS ABSOLUTE COUNT 3.39 K/ L 1.78-5.38 (BEAKER) (test code = 670) LYMPHOCYTES ABSOLUTE COUNT 1.31 K/ L 1.32-3.57 L (BEAKER) (test code = 414) MONOCYTES ABSOLUTE COUNT (BEAKER) 0.75 K/ L 0.30-0.82 (test code = 415) EOSINOPHILS ABSOLUTE COUNT 0.23 K/ L 0.04-0.54 (BEAKER) (test code = 416) BASOPHILS ABSOLUTE COUNT (BEAKER) 0.03 K/ L 0.01-0.08 (test code = 417) IMMATURE GRANULOCYTES-RELATIVE 0.30 % 0.00-1.00 PERCENT (BEAKER) (test code = 2801) [id number] 15:10:45 Test Item Value Reference Range Interpretation Comments PROTIME (BEAKER) (test 15.6 seconds 11.9-14.2 H code = 759) INR (BEAKER) (test 1.32 See_Comment [Automat ed code = 370) message] The sy stem which generated this result transmitted reference range : <=5.90. The reference range was not used to interpret this result as normal/abnormal . PARTIAL THROMBOPLASTIN 35.8 seconds 22.5-36.0 TIME (BEAKER) (test code = 760) RECOMMENDED COUMADIN/WARFARIN INR THERAPY RANGESSTANDARD DOSE: 2.0 - 3.0 Includes: PROPHYLAXIS for venous thrombosis, systemic embolization; TREATMENT for venous thrombosis and/or pulmonary embolus.HIGH RISK: Target INR is 2.5-3.5 for patients with mechanical heart valves.Drug Test, General Toxicology, Urine 2022-03-29 12:24:06 Test Item Value Reference Interpretation Comments Range Acetone([facility]) None Detected (test code = 3053) Methanol([facility]) None Detected (test code = 3054) Drug Test,Genrl see note The followin g compounds were Tox,U (test detected: Aceta minophen code = 7483291) Salicylic Ac id Ibuprofen For a list of compo unds and limits of detec tion go to:http://educa tion.[employer]oom/faq /HTC966 ISOPROPANOL None Detected (test code = 5812526) ETHANOL (test None Detected Volatile Gonzales it of Detection: code = 8127540) 5 mg/dL This test was developed and i ts analytical performancechar acteristics have been deter mined by [employer] [facility] [place], [place]. It hasnot been moose ared or approved by the U.S. Food and DrugAdministrat ion. This assay has been validated pursuantto the CLIA regulations and is used for clinicalpurpose s. CHIKA (test code Performing Lab = CHIKA) 15 [facility] [address] [facility] [place], [place] Carleen Henriquez MD, PhD [facility], General Toxicology, [id number] 12:24:06 Test Item Value Reference Interpretation Comments Range Acetone([facility]) None Detected (test code = 3053) Methanol([facility]) None Detected (test code = 3054) Drug Test,Genrl see note The followin g compounds were Tox,U (test detected: Aceta minophen code = 0245979) Salicylic Ac id Ibuprofen For a list of compo unds and limits of detec tion go to:http://educa tion.[employer]oom/faq /MPQ322 ISOPROPANOL None Detected (test code = 2914804) ETHANOL (test None Detected Volatile Gonzales it of Detection: code = 0028664) 5 mg/dL This test was developed and i ts analytical performancechar acteristics have been deter mined by [employer] [facility] [place], [place]. It hasnot been moose ared or approved by the U.S. Food and DrugAdministrat ion. This assay has been validated pursuantto the CLIA regulations and is used for clinicalpurpose s. CHIKA (test code Performing Lab = CHIKA) 15 [facility] [place] [address] [facility] [place], [place] Carleen Henriquez MD, PhD [facility] HospitalPHOSPHORUS2022-11-04 06:10:30 Test Item Value Reference Range Interpretation Comments PHOSPHORUS (BEAKER) (test code = 2.9 mg/dL 2.3-4.7 604) Pad Making Machine Operator ID - ZAFAR WBASIC METABOLIC [id number] 06:10:29 Test Item Value Reference Range Interpretation Comments SODIUM (BEAKER) 136 meq/L 136-145 (test code = 381) POTASSIUM 3.8 meq/L 3.5-5.1 (BEAKER) (test code = 379) CHLORIDE (BEAKER) 104 meq/L 98-107 (test code = 382) CO2 (BEAKER) 23 meq/L 22-29 (test code = 355) BLOOD UREA 12 mg/dL 7-21 NITROGEN (BEAKER) (test code = 354) CREATININE 0.82 mg/dL 0.57-1.25 (BEAKER) (test code = 358) GLUCOSE RANDOM 99 mg/dL 70-105 (BEAKER) (test code = 652) CALCIUM (BEAKER) 8.7 mg/dL 8.4-10.2 (test code = 697) EGFR (BEAKER) 109 Interpretatio n of eGFR (test code = mL/min/1.73 values Stage De scription 1092) sq m Result G1 Lilliam l or high >=90 G2 Mildly decreased 60-89 G3a Mildl y to moderately 45-5 9 G3b Moderately to s everely 30-44 G4 Severl y decreased 15-29 G5 Kidney failure <15Reported eGF R is based on the CKD-EPI 2020 equation that d oes not use a race coefficientEsti mated GFR is not as accur ate as Creatinine Lorie cynthia in predicting glom erular filtration rate . Estimated GFR is not appl icable for dialysis patien ts Pad Making Machine Operator ID - ZAFAR [id number] 06:10:29 Test Item Value Reference Range Interpretation Comments MAGNESIUM (BEAKER) (test code = 2.1 mg/dL 1.6-2.6 627) Pad Making Machine Operator ID Bill STEPHEN WCBC W/PLT COUNT & AUTO [id number] 05:33:53 Test Item Value Reference Range Interpretation Comments WHITE BLOOD CELL COUNT (BEAKER) 4.4 K/ L 3.5-10.5 (test code = 775) RED BLOOD CELL COUNT (BEAKER) 4.68 M/ L 4.63-6.08 (test code = 761) HEMOGLOBIN (BEAKER) (test code = 13.9 GM/DL 13.7-17.5 410) HEMATOCRIT (BEAKER) (test code = 39.7 % 40.1-51.0 L 411) MEAN CORPUSCULAR VOLUME (BEAKER) 85 fL 79-92 (test code = 753) MEAN CORPUSCULAR HEMOGLOBIN 29.7 pg 25.7-32.2 (BEAKER) (test code = 751) MEAN CORPUSCULAR HEMOGLOBIN CONC 35.0 GM/DL 32.3-36.5 (BEAKER) (test code = 752) RED CELL DISTRIBUTION WIDTH 13.0 % 11.6-14.4 (BEAKER) (test code = 412) PLATELET COUNT (BEAKER) (test 187 K/CU MM 150-450 code = 756) MEAN PLATELET VOLUME (BEAKER) 11.2 fL 9.4-12.4 (test code = 754) NUCLEATED RED BLOOD CELLS 0 /100 WBC 0-0 (BEAKER) (test code = 413) NEUTROPHILS RELATIVE PERCENT 54 % (BEAKER) (test code = 429) LYMPHOCYTES RELATIVE PERCENT 25 % (BEAKER) (test code = 430) MONOCYTES RELATIVE PERCENT 15 % (BEAKER) (test code = 431) EOSINOPHILS RELATIVE PERCENT 6 % (BEAKER) (test code = 432) BASOPHILS RELATIVE PERCENT 1 % (BEAKER) (test code = 437) NEUTROPHILS ABSOLUTE COUNT 2.36 K/ L 1.78-5.38 (BEAKER) (test code = 670) LYMPHOCYTES ABSOLUTE COUNT 1.10 K/ L 1.32-3.57 L (BEAKER) (test code = 414) MONOCYTES ABSOLUTE COUNT (BEAKER) 0.65 K/ L 0.30-0.82 (test code = 415) EOSINOPHILS ABSOLUTE COUNT 0.26 K/ L 0.04-0.54 (BEAKER) (test code = 416) BASOPHILS ABSOLUTE COUNT (BEAKER) 0.03 K/ L 0.01-0.08 (test code = 417) IMMATURE GRANULOCYTES-RELATIVE 0.00 % 0.00-1.00 PERCENT (BEAKER) (test code = 2801) BASIC METABOLIC [id number] 03:56:15 Test Item Value Reference Range Interpretation Comments SODIUM (BEAKER) 135 meq/L 136-145 L (test code = 381) POTASSIUM 3.6 meq/L 3.5-5.1 (BEAKER) (test code = 379) CHLORIDE (BEAKER) 103 meq/L 98-107 (test code = 382) CO2 (BEAKER) 26 meq/L 22-29 (test code = 355) BLOOD UREA 13 mg/dL 7-21 NITROGEN (BEAKER) (test code = 354) CREATININE 1.11 mg/dL 0.57-1.25 (BEAKER) (test code = 358) GLUCOSE RANDOM 107 mg/dL 70-105 H (BEAKER) (test code = 652) CALCIUM (BEAKER) 8.3 mg/dL 8.4-10.2 L (test code = 697) EGFR (BEAKER) 83 Interpretati on of eGFR (test code = mL/min/1.73 values Stage De scription 1092) sq m Result G1 Lilliam l or high >=90 G2 Mildly decreased 60-89 G3a Mildl y to moderately 45-5 9 G3b Moderately to s everely 30-44 G4 Severl y decreased 15-29 G5 Kidney failure <15Reported eGF R is based on the CKD-EPI 2020 equation that d oes not use a race coefficientEsti mated GFR is not as accur ate as Creatinine Lorie cynthia in predicting glom erular filtration rate . Estimated GFR is not appl icable for dialysis patien ts Pad Making Machine Operator ID - JIGNA [id number] 03:56:15 Test Item Value Reference Range Interpretation Comments MAGNESIUM (BEAKER) (test code = 2.1 mg/dL 1.6-2.6 627) Pad Making Machine Operator ID - JIGNA [id number] 03:56:15 Test Item Value Reference Range Interpretation Comments PHOSPHORUS (BEAKER) (test code = 2.9 mg/dL 2.3-4.7 604) Pad Making Machine Operator ID - JIGNA MCBC W/PLT COUNT & AUTO [id number] 03:28:11 Test Item Value Reference Range Interpretation Comments WHITE BLOOD CELL COUNT (BEAKER) 5.0 K/ L 3.5-10.5 (test code = 775) RED BLOOD CELL COUNT (BEAKER) 4.77 M/ L 4.63-6.08 (test code = 761) HEMOGLOBIN (BEAKER) (test code = 14.4 GM/DL 13.7-17.5 410) HEMATOCRIT (BEAKER) (test code = 41.5 % 40.1-51.0 411) MEAN CORPUSCULAR VOLUME (BEAKER) 87 fL 79-92 (test code = 753) MEAN CORPUSCULAR HEMOGLOBIN 30.2 pg 25.7-32.2 (BEAKER) (test code = 751) MEAN CORPUSCULAR HEMOGLOBIN CONC 34.7 GM/DL 32.3-36.5 (BEAKER) (test code = 752) RED CELL DISTRIBUTION WIDTH 13.0 % 11.6-14.4 (BEAKER) (test code = 412) PLATELET COUNT (BEAKER) (test 157 K/CU MM 150-450 code = 756) MEAN PLATELET VOLUME (BEAKER) 10.6 fL 9.4-12.4 (test code = 754) NUCLEATED RED BLOOD CELLS 0 /100 WBC 0-0 (BEAKER) (test code = 413) NEUTROPHILS RELATIVE PERCENT 69 % (BEAKER) (test code = 429) LYMPHOCYTES RELATIVE PERCENT 17 % (BEAKER) (test code = 430) MONOCYTES RELATIVE PERCENT 12 % (BEAKER) (test code = 431) EOSINOPHILS RELATIVE PERCENT 1 % (BEAKER) (test code = 432) BASOPHILS RELATIVE PERCENT 1 % (BEAKER) (test code = 437) NEUTROPHILS ABSOLUTE COUNT 3.47 K/ L 1.78-5.38 (BEAKER) (test code = 670) LYMPHOCYTES ABSOLUTE COUNT 0.85 K/ L 1.32-3.57 L (BEAKER) (test code = 414) MONOCYTES ABSOLUTE COUNT (BEAKER) 0.62 K/ L 0.30-0.82 (test code = 415) EOSINOPHILS ABSOLUTE COUNT 0.03 K/ L 0.04-0.54 L (BEAKER) (test code = 416) BASOPHILS ABSOLUTE COUNT (BEAKER) 0.05 K/ L 0.01-0.08 (test code = 417) IMMATURE GRANULOCYTES-RELATIVE 0.40 % 0.00-1.00 PERCENT (BEAKER) (test code = 2801) MR, BRAIN, WITHOUT [id number] 10:27:00Unlisted Reason for Exam - Click Yes and Enter Reason Below->No [facility] : 1975 Sex: MFINAL REPORT MRI Brain without contrast Clinical History: Stroke, follow up Technique: MRI of the brain utilizing axial T2, FLAIR, GRE, DWI; sagittal and coronal T1-weighted images. Comparisons: CT/CTP 03/24/2022 Findings: There is expected evolution of acute infarction involving much of the right middle cerebral artery distribution. Small acute infarcts also seen in the left anterior cerebral artery distribution. 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 There isno hemorrhagic transformation. There is mild generalized sulcal prominence without hydrocephalus or midline shift. There are no extra-axial fluid collections. The craniocervical junction is preserved. T here is attenuation of the right internal carotid artery and right middle cerebral artery flow voidscompatible with earlier findings. IMPRESSION: Since 03/24/2022, expected evolution of acute infarction involving much of the right MCA distribution. Small scattered acute infarcts in the left anterior cerebral artery distribution. 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 No hemorrhagic confirmation. Attenuated right ICA and right MCA flow-voids. Signed: Santana Centeno MDReport Verified Date/Time: 03/27/2022 10:27:45 BASIC METABOLIC PANEL 2022-03-27 03:06:35 Test Item Value Reference Range Interpretation Comments SODIUM (BEAKER) 134 meq/L 136-145 L (test code = 381) POTASSIUM 3.6 meq/L 3.5-5.1 Specimen slight ly (BEAKER) (test hemolyzed code = 379) CHLORIDE (BEAKER) 103 meq/L 98-107 (test code = 382) CO2 (BEAKER) 20 meq/L 22-29 L (test code = 355) BLOOD UREA 8 mg/dL 7-21 NITROGEN (BEAKER) (test code = 354) CREATININE 0.87 mg/dL 0.57-1.25 Specimen slight ly (BEAKER) (test hemolyzed code = 358) GLUCOSE RANDOM 107 mg/dL 70-105 H (BEAKER) (test code = 652) CALCIUM (BEAKER) 8.6 mg/dL 8.4-10.2 (test code = 697) EGFR (BEAKER) 107 Interpretatio n of eGFR (test code = mL/min/1.73 values Stage D escription 1092) sq m Result G1 Lilliam l or high >=90 G2 Mildly decreased 60-89 G3a Mildl y to moderately 45-5 9 G3b Moderately to s everely 30-44 G4 Severl y decreased 15-29 G5 Kidney failure <15Reported eGF R is based on the CKD-EPI 2020 equation that d oes not use a race coefficientEsti mated GFR is not as accur ate as Creatinine Lorie marie in predicting glom erular filtration rate . Estimated GFR is not appl icable for dialysis patien ts Pad Making Machine Operator ID - JIGNA [id number] 03:06:34 Test Item Value Reference Range Interpretation Comments MAGNESIUM (BEAKER) 1.7 mg/dL 1.6-2.6 Specimen slightly (test code = 627) hemolyzed Pad Making Machine Operator ID - JIGNA [id number] 03:06:34 Test Item Value Reference Range Interpretation Comments PHOSPHORUS (BEAKER) 2.1 mg/dL 2.3-4.7 L Specimen slightly (test code = 604) hemolyzed Pad Making Machine Operator ID - JIGNA [id number] 02:22:27 Test Item Value Reference Range Interpretation Comments PROCALCITONIN (BEAKER) (test code 0.32 ng/mL <0.05 H = 3036) SEPSIS RISK (ng/mL)Low: 0.05-0.50Intermediate: 0.51-2.00High: >=2.01 Urinalysis w/Microscopic + Reflex to [id number] 01:59:14 Test Item Value Reference Range Interpretation Comments Color, UA (test code Colorless = 5778-6) Clarity, UA (test Clear code = 5767-9) Specific [place], UA 1.004 1.001-1.035 (test code = 5811-5) pH, UA (test code = 6.5 5.0-8.0 5803-2) Protein, UA (test Negative Negative code = 69847-8) Glucose, UA (test Negative Negative code = 365) Ketones, UA (test Negative Negative code = 2514-8) Bilirubin, UA (test Negative Negative code = 40917-6) Blood, UA (test code Negative Negative = 49633-3) Nitrite, UA (test Negative Negative code = 5802-4) Leukocytes, UA (test Trace Negative A code = 5799-2) Urobilinogen, UA 0.2 0.2-1.0 (test code = 94859-2) RBC, UA (test code = 2 See_Comment [Autom ated 74074-8) message] The system which generated this result transmitted reference range : /HPF. The reference range was not used to interpret this result as normal/abnormal . WBC, UA (test code = 5 See_Comment [Autom ated 5821-4) message] The system which generated this result transmitted reference range : /HPF. The reference range was not used to interpret this result as normal/abnormal . Bacteria, UA (test Rare code = 42927-6) Specimen Source (test code = 2795) CHIKA (test code = CHIKA) Pad Making Machine Operator ID - [auto]Pad Making Machine Operator ID - tech Lab Interpretation Abnormal (test code = 69987-8) [facility]/Microscopic + Reflex to Culture 2022-03-27 01:59:14 Test Item Value Reference Range Interpretation Comments Color, UA (test code Colorless = 5778-6) Clarity, UA (test Clear code = 5767-9) Specific [place], UA 1.004 1.001-1.035 (test code = 5811-5) pH, UA (test code = 6.5 5.0-8.0 5803-2) Protein, UA (test Negative Negative code = 92671-7) Glucose, UA (test Negative Negative code = 365) Ketones, UA (test Negative Negative code = 2514-8) Bilirubin, UA (test Negative Negative code = 73321-5) Blood, UA (test code Negative Negative = 67925-8) Nitrite, UA (test Negative Negative code = 5802-4) Leukocytes, UA (test Trace Negative A code = 5799-2) Urobilinogen, UA 0.2 0.2-1.0 (test code = 98097-4) RBC, UA (test code = 2 See_Comment [Autom ated 88105-3) message] The system which generated this result transmitted reference range : /HPF. The reference range was not used to interpret this result as normal/abnormal . WBC, UA (test code = 5 See_Comment [Autom ated 5821-4) message] The system which generated this result transmitted reference range : /HPF. The reference range was not used to interpret this result as normal/abnormal . Bacteria, UA (test Rare code = 36027-9) Specimen Source (test code = 2795) CHIKA (test code = CHIKA) Pad Making Machine Operator ID - [auto]Pad Making Machine Operator ID - tech Lab Interpretation Abnormal (test code = 62671-6) [facility]/ REFLEX URINE [id number] 01:59:14 Test Item Value Reference Range Interpretation Comments COLOR (BEAKER) (test code = 470) Colorless CLARITY (BEAKER) (test code = 469) Clear SPECIFIC GRAVITY UA (BEAKER) (test 1.004 1.001-1.035 code = 468) PH UA (BEAKER) (test code = 467) 6.5 5.0-8.0 PROTEIN UA (BEAKER) (test code = Negative Negative 464) GLUCOSE UA (BEAKER) (test code = Negative Negative 365) KETONES UA (BEAKER) (test code = Negative Negative 371) BILIRUBIN UA (BEAKER) (test code = Negative Negative 462) BLOOD UA (BEAKER) (test code = 461) Negative Negative NITRITE UA (BEAKER) (test code = Negative Negative 465) LEUKOCYTE ESTERASE UA (BEAKER) Trace Negative A (test code = 466) UROBILINOGEN UA (BEAKER) (test code 0.2 0.2-1.0 = 463) RBC UA (BEAKER) (test code = 519) 2 /HPF WBC UA (BEAKER) (test code = 520) 5 /HPF BACTERIA (BEAKER) (test code = 517) Rare SOURCE(BEAKER) (test code = 2795) Pad Making Machine Operator ID - [auto]Pad Making Machine Operator ID - techLACTIC ACID, [id number] 01:48:24 Test Item Value Reference Range Interpretation Comments LACTATE BLOOD VENOUS 0.75 mmol/L 0.50-2.20 Specime n slightly (2) (BEAKER) (test hemolyzed code = 2872) Pad Making Machine Operator ID - JIGNA MCBC W/PLT COUNT & AUTO [id number] 01:43:48 Test Item Value Reference Range Interpretation Comments WHITE BLOOD CELL COUNT (BEAKER) 6.1 K/ L 3.5-10.5 (test code = 775) RED BLOOD CELL COUNT (BEAKER) 4.91 M/ L 4.63-6.08 (test code = 761) HEMOGLOBIN (BEAKER) (test code = 14.5 GM/DL 13.7-17.5 410) HEMATOCRIT (BEAKER) (test code = 42.0 % 40.1-51.0 411) MEAN CORPUSCULAR VOLUME (BEAKER) 86 fL 79-92 (test code = 753) MEAN CORPUSCULAR HEMOGLOBIN 29.5 pg 25.7-32.2 (BEAKER) (test code = 751) MEAN CORPUSCULAR HEMOGLOBIN CONC 34.5 GM/DL 32.3-36.5 (BEAKER) (test code = 752) RED CELL DISTRIBUTION WIDTH 12.6 % 11.6-14.4 (BEAKER) (test code = 412) PLATELET COUNT (BEAKER) (test 195 K/CU MM 150-450 code = 756) MEAN PLATELET VOLUME (BEAKER) 10.5 fL 9.4-12.4 (test code = 754) NUCLEATED RED BLOOD CELLS 0 /100 WBC 0-0 (BEAKER) (test code = 413) NEUTROPHILS RELATIVE PERCENT 84 % (BEAKER) (test code = 429) LYMPHOCYTES RELATIVE PERCENT 7 % (BEAKER) (test code = 430) MONOCYTES RELATIVE PERCENT 8 % (BEAKER) (test code = 431) EOSINOPHILS RELATIVE PERCENT 0 % (BEAKER) (test code = 432) BASOPHILS RELATIVE PERCENT 1 % (BEAKER) (test code = 437) NEUTROPHILS ABSOLUTE COUNT 5.16 K/ L 1.78-5.38 (BEAKER) (test code = 670) LYMPHOCYTES ABSOLUTE COUNT 0.43 K/ L 1.32-3.57 L (BEAKER) (test code = 414) MONOCYTES ABSOLUTE COUNT (BEAKER) 0.49 K/ L 0.30-0.82 (test code = 415) EOSINOPHILS ABSOLUTE COUNT 0.00 K/ L 0.04-0.54 L (BEAKER) (test code = 416) BASOPHILS ABSOLUTE COUNT (BEAKER) 0.03 K/ L 0.01-0.08 (test code = 417) IMMATURE GRANULOCYTES-RELATIVE 0.30 % 0.00-1.00 PERCENT (BEAKER) (test code = 2801) RAD, CHEST, 1 VIEW, NON [id number] 20:49:00Reason for exam:- >pneumoniaShould this be performed at the bedside?->Yes [facility] : 1975 Sex: MFINAL REPORT INDICATION: pneumonia COMPARISON: None TECHNIQUE: Single frontal view of the chest. FINDINGS: Lungs and pleura: Clear lungs. No effusion. Heart and mediastinum: Normal heart size. Unremarkable mediastinal contours. Osseous structures: No acute abnormality. Other: None. IMPRESSION: No acute intrathoracic abnormality. Signed: Storm Bowser MDReport Verified Date/Time: 0:49:41 SARS-CoV2/Influenza/RSV [id number] 19:08:11 Test Item Value Reference Interpretation Comments Range SARS-COV2/RT-PCR Negative Negative The SARS-Co V-2 (test code = target nucleic 06930-6) acids are not detected in thi s specimen. Negat tash results do not preclude SARS-C oV-2 infection and should not be u sed as the sole bas is for patient management decisions. Nega tive results must be combined with clinical observations, patient history , and epidemiolog ical information. A false negative result may occu r if a specimen is improperly collected, transported or handled. This S ARS CoV-2 test is a rapid, real-tiburcio e RT-PCR test intended for e qualitative detection of nucleic acid fr om SARS-CoV-2 in a nasopharyngeal swab specimen [facility] from individual s suspected of COVID-19 by the ir healthcare provider. Influenza A RT-PCR Negative Negative The Flu A target (test code = [place] 33917-0) not detected in this specimen. Influenza B RT-PCR Negative Negative The Flu B target (test code = [place] 92620-8) not detected in this specimen. RSV by RT-PCR (test Negative Negative The RSV target code = 63796-8) nucleic acid s are not detected in this specimen. CHIKA (test code = The presence of CHIKA) SARS-CoV-2/FLU/RSV viral nucleic acids cannot rule out co-infections or disease caused by other viral or bacterial pathogens. As with any molecular test, mutations within the target regions of the Xpert Xpress SARS-CoV-2/Flu/RSV test could affect primer and/or probe binding resulting in failure to detect the presence of virus or the virus being detected less predictably. False negative results may occur if the virus is present at levels below the analytical limit of detection in this specimen. This Xpert Xpress SARS-CoV-2/Flu/RSV test is a rapid, real-time RT-PCR test intended for the qualitative detection of nucleic acid from Xpert Xpress SARS-CoV-2/Flu/RSV in a nasopharyngeal swab specimen collected from individuals suspected of [facility]pert Xpress SARS-CoV-2/Flu/RSV by their healthcare provider. Results from pat [facility]pert Xpress SARS-CoV-2/Flu/RSV test should be correlated with the clinical history, epidemiological data, and other data available to the clinician evaluating the patient. Viral nucleic acid may persist in vivo, independent of virus viability. Detection of analyte target(s) does not imply that the corresponding virus(es) are infectious or are the causative agents for clinical symptoms. This test has not been Food and Drug Administration (FDA) cleared or approved and has been authorized by FDA under an Emergency Use Authorization (EUA). This EUA will be effective until the declaration that circumstances exist justifying the authorization of the emergency use of in vitro diagnostic tests for detection and/or diagnosis of COVID-19 is terminated under Section 564(b)(2) of the Act or the EUA is revoked under Section 564(g) of the Act. Fact Sheet for Healthcare Providers:https://w ran.[employer]/Docu ments/Xpert%20Xpres s%20SARS%20CoV-2/Fa ct%20Sheets/302-390 2%93DXRM-UUD-8%20HE ALTHCARE%20PROVIDER S%20FACT%20SHEET.pd f Fact Sheet for Healthcare Patients:https://ww w.[employer]/Docum ents/Xpert%20Xpress %20SARS%20Cov-2/Fac t%20Sheets/302-3801 %54UVUF-KVL-5%20PAT IENT%20FACT%20SHEET .pdf Lab Interpretation Normal (test code = 64101-4) [facility] [id number] 19:08:11 Test Item Value Reference Interpretation Comments Range SARS-COV2/RT-PCR Negative Negative The SARS-Co V-2 (test code = target nucleic 71011-0) acids are not detected in thi s specimen. Negat tash results do not preclude SARS-C oV-2 infection and should not be u sed as the sole bas is for patient management decisions. Nega tive results must be combined with clinical observations, patient history , and epidemiolog ical information. A false negative result may occu r if a specimen is improperly collected, transported or handled. This S ARS CoV-2 test is a rapid, real-tiburcio e RT-PCR test intended for e qualitative detection of nucleic acid fr om SARS-CoV-2 in a nasopharyngeal swab specimen collec lucian from individual s suspected of COVID-19 by the ir healthcare provider. Influenza A RT-PCR Negative Negative The Flu A target (test code = [place] [address]-0) not detected in this specimen. Influenza B RT-PCR Negative Negative The Flu B target (test code = [place] 97532-4) not detected in this specimen. RSV by RT-PCR (test Negative Negative The RSV target code = 44261-2) nucleic acid s are not detected in this specimen. CHIKA (test code = The presence of CHIKA) SARS-CoV-2/FLU/RSV viral nucleic acids cannot rule out co-infections or disease caused by other viral or bacterial pathogens. As with any molecular test, mutations within the target regions of the Xpert Xpress SARS-CoV-2/Flu/RSV test could affect primer and/or probe binding resulting in failure to detect the presence of virus or the virus being detected less predictably. False negative results may occur if the virus is present at levels below the analytical limit of detection in this specimen. This Xpert Xpress SARS-CoV-2/Flu/RSV test is a rapid, real-time RT-PCR test intended for the qualitative detection of nucleic acid from Xpert Xpress SARS-CoV-2/Flu/RSV in a nasopharyngeal swab specimen collected from individuals suspected of Xpert Xpress SARS-CoV-2/Flu/RSV by their healthcare provider. Results from [facility] Xpert Xpress SARS-CoV-2/Flu/RSV test should be correlated with the clinical history, epidemiological data, and other data available to the clinician evaluating the patient. Viral nucleic acid may persist in vivo, independent of virus viability. Detection of analyte target(s) does not imply that the corresponding virus(es) are infectious or are the causative agents for clinical symptoms. This test has not been Food and Drug Administration (FDA) cleared or approved and has been authorized by FDA under an Emergency Use Authorization (EUA). This EUA will be effective until the declaration that circumstances exist justifying the authorization of the emergency use of in vitro diagnostic tests for detection and/or diagnosis of COVID-19 is terminated under Section 564(b)(2) of the Act or the EUA is revoked under Section 564(g) of the Act. Fact Sheet for Healthcare Providers:https://[employer]/Docu ments/Xpert%20Xpres s%20SARS%20CoV-2/Fa ct%20Sheets/302-390 2%02YFFW-GAT-9%20HE ALTHCARE%20PROVIDER S%20FACT%20SHEET.pd f Fact Sheet for Healthcare Patients:https://[employer]/Docum ents/Xpert%20Xpress %20SARS%20Cov-2/Fac t%20Sheets/302-3801 %32TRTM-BEI-2%20PAT IENT%20FACT%20SHEET .pdf Lab Interpretation Normal (test code = 26290-1) [facility] [id number] 19:08:11 Test Item Value Reference Range Interpretation Comments SARS-COV2/RT-PCR Negative Negative The SARS-Co V-2 target (test code = nucleic acids a re not 9060687) detected in thi s specimen. Negat tash results do not preclude SARS-CoV-2 infe ction and should not be u sed as the sole basis for patient management deci sions. Negative result s must be combined with c linical observations, p atient history, and epidemiological information. A false negative result may occur if a specimen i s improperly tanvir ected, transported or handled. This SARS CoV-2 test is a rapid, real-tiburcio e RT-PCR test intended f or the qualitative det ection of nucleic acid fr om SARS-CoV-2 in a nasopharyngeal swab specimen collec lucian from individuals yoon pected of COVID-19 by the [facility]. INFLUENZA A RT-PCR Negative Negative The Flu A target nucleic (test code = acids are not d etected in 19100629) this specimen. INFLUENZA B RT-PCR Negative Negative The Flu B target nucleic (test code = acids are not d etected in 19100630) this specimen. RSV RT-PCR (test Negative Negative The RSV tar get nucleic code = 19100701) acids are no t detected in this specimen. The presence of SARS-CoV-2/FLU/RSV viral nucleic acids cannot rule out co- infections or disease caused by other viral or bacterial pathogens. As with any molecular test, mutations within the target regions of the Xpert Xpress SARS-CoV-2/Flu/RSV test could affect primer and/or probe binding resulting in failure to detect the presence of virus or the virus being detected less predictably. False negative results may occur if the virus is present at levels below the analytical limit of detection in thisspecimen.This Xpert Xpress SARS-CoV-2/Flu/RSV test is a rapid, real-time RT-PCR test intended for the qualitative detection of nucleic acid from Xpert Xpress SARS-CoV-2/Flu/RSV in a nasopharyngeal swabspecimen collected from individuals suspected of Xpert Xpress SARS-CoV-2/Flu/RSV by their healthcareprovider. Results from pat Xpert Xpress SARS-CoV-2/Flu/RSV test should be correlated with the clinical history, epidemiological data, and other data available to the clinician evaluating the patient. Viral nucleic acid may persist in vivo, independent of virus viability. Detection of analyte target(s)does not imply that the corresponding virus(es) are infectious or are the causative agents for clinical symptoms.This test has not been Food and Drug Administration (FDA) cleared or approved and has been authorized by FDA under an Emergency Use Authorization (EUA). This EUA will be effective until the declaration that circumstances exist justifying the authorization of the emergency use of in vitro diagnostic tests for detection and/or diagnosis of COVID-19 is terminated under Section 564(b)(2) of the Act or the EUA is revoked under Section 564(g) of the Act.Fact Sheet for Healthcare Providers:http s://www.[employer]/Documents/Xpert%20Xpress%20SARS%20CoV-2/Fact%20Sheets/302-39 02%42JSMP-RZK-9%20HEALTHCARE%20PROVIDERS%20FACT%20SHEET.pdfFact Sheet for Healthcare Patients:https://www.[employer]/Docu ments/Xpert%20Xpress%20SARS%20Cov-2/Fact%20Sheets/302-3801%25CQQP-XKE-2%20PATIEN T%20FACT%20SHEET.pdfHIGH SENSITIVITY TROPONIN [id number] 18:10:30 Test Item Value Reference Range Interpretation Comments HIGH SENSITIVITY 13 pg/ml See_Comment [Automated message] TROPONIN I (test code = The system which [id number]) generated this result transmitted ref erence range: <=35. Th e reference range was not used to int erpret this result as normal/abnormal . Pad Making Machine Operator ID - BSThe CLOTH WINDER STAT High Sensitivity Troponin-I results should be used in conjunctionwith other diagnostic information such as ECG, clinical observations and information, and patient symptoms to aid in the diagnosis of [place].Transthoracic 2D echo w/ doppler (cw/pw/color)2022-03-26 15:29:56Ejection FractionSLEH ECHO HEARTLAB [facility] Transthoracic 2D echo w/ doppler (cw/pw/color)2022-03-26 15:29:56Ejection FractionSLEH ECHO HEARTLAB [facility] (DSDNA) [id number] 12:35:47 Test Item Value Reference Range Interpretation Comments ANTI-DNA DS (BEAKER) (test code = Negative Negative 1055) [id number] 04:10:25 Test Item Value Reference Range Interpretation Comments MAGNESIUM (BEAKER) (test code = 1.7 mg/dL 1.6-2.6 627) Pad Making Machine Operator ID Bill STEPHEN [id number] 04:10:25 Test Item Value Reference Range Interpretation Comments PHOSPHORUS (BEAKER) (test code = 3.0 mg/dL 2.3-4.7 604) Pad Making Machine Operator ID Bill STEPHEN WBASIC METABOLIC [id number] 04:10:24 Test Item Value Reference Range Interpretation Comments SODIUM (BEAKER) 138 meq/L 136-145 (test code = 381) POTASSIUM 3.9 meq/L 3.5-5.1 (BEAKER) (test code = 379) CHLORIDE (BEAKER) 107 meq/L 98-107 (test code = 382) CO2 (BEAKER) 22 meq/L 22-29 (test code = 355) BLOOD UREA 10 mg/dL 7-21 NITROGEN (BEAKER) (test code = 354) CREATININE 0.89 mg/dL 0.57-1.25 (BEAKER) (test code = 358) GLUCOSE RANDOM 105 mg/dL 70-105 (BEAKER) (test code = 652) CALCIUM (BEAKER) 8.6 mg/dL 8.4-10.2 (test code = 697) EGFR (BEAKER) 107 Interpretatio n of eGFR (test code = mL/min/1.73 values Stage De scription 1092) sq m Result G1 Lilliam l or high >=90 G2 Mildly decreased 60-89 G3a Mildl y to moderately 45-5 9 G3b Moderately to s everely 30-44 G4 Severl y decreased 15-29 G5 Kidne y failure <15Reported eGF R is based on the CKD-EPI 1 equation that d oes not use a race coefficientEsti mated GFR is not as accur ate as Creatinine Lorie marie in predicting glom erular filtration rate . Estimated GFR is not appl icable for dialysis patien ts Pad Making Machine Operator ID - ZAFAR WCBC W/PLT COUNT & AUTO [id number] 03:32:31 Test Item Value Reference Range Interpretation Comments WHITE BLOOD CELL COUNT (BEAKER) 8.0 K/ L 3.5-10.5 (test code = 775) RED BLOOD CELL COUNT (BEAKER) 4.64 M/ L 4.63-6.08 (test code = 761) HEMOGLOBIN (BEAKER) (test code = 13.9 GM/DL 13.7-17.5 410) HEMATOCRIT (BEAKER) (test code = 39.7 % 40.1-51.0 L 411) MEAN CORPUSCULAR VOLUME (BEAKER) 86 fL 79-92 (test code = 753) MEAN CORPUSCULAR HEMOGLOBIN 30.0 pg 25.7-32.2 (BEAKER) (test code = 751) MEAN CORPUSCULAR HEMOGLOBIN CONC 35.0 GM/DL 32.3-36.5 (BEAKER) (test code = 752) RED CELL DISTRIBUTION WIDTH 13.0 % 11.6-14.4 (BEAKER) (test code = 412) PLATELET COUNT (BEAKER) (test 254 K/CU MM 150-450 code = 756) MEAN PLATELET VOLUME (BEAKER) 10.4 fL 9.4-12.4 (test code = 754) NUCLEATED RED BLOOD CELLS 0 /100 WBC 0-0 (BEAKER) (test code = 413) NEUTROPHILS RELATIVE PERCENT 77 % (BEAKER) (test code = 429) LYMPHOCYTES RELATIVE PERCENT 13 % (BEAKER) (test code = 430) MONOCYTES RELATIVE PERCENT 8 % (BEAKER) (test code = 431) EOSINOPHILS RELATIVE PERCENT 2 % (BEAKER) (test code = 432) BASOPHILS RELATIVE PERCENT 0 % (BEAKER) (test code = 437) NEUTROPHILS ABSOLUTE COUNT 6.15 K/ L 1.78-5.38 H (BEAKER) (test code = 670) LYMPHOCYTES ABSOLUTE COUNT 1.00 K/ L 1.32-3.57 L (BEAKER) (test code = 414) MONOCYTES ABSOLUTE COUNT (BEAKER) 0.63 K/ L 0.30-0.82 (test code = 415) EOSINOPHILS ABSOLUTE COUNT 0.12 K/ L 0.04-0.54 (BEAKER) (test code = 416) BASOPHILS ABSOLUTE COUNT (BEAKER) 0.03 K/ L 0.01-0.08 (test code = 417) IMMATURE GRANULOCYTES-RELATIVE 0.30 % 0.00-1.00 PERCENT (BEAKER) (test code = 2801) RHEUMATOID FACTOR AB, REFLEX TO [id number] 14:17:19 Test Item Value Reference Range Interpretation Comments RHEUMATOID FACTOR (BEAKER) (test Negative Negative code = 573) ANTI-NUCLEAR ANTIBODY (ADAM)2022-03-25 13:04:15 Test Item Value Reference Range Interpretation Comments ANTI-NUCLEAR ANTIBODY (ADAM) (BEAKER) Negative Negative (test code = 418) Test performed by IFA method.Test performed by IFA method.HEMOGLOBIN A1C 2022-03-25 12:19:11 Test Item Value Reference Range Interpretation Comments HEMOGLOBIN A1C 5.2 % See_Comment [Automated m essage] ELECTROPHORESIS (BEAKER) The system which (test code = 3811) generated this result transmitted ref erence range: <=5.6%. The reference range was not used to int erpret this result as normal/abnormal . "The A1c is measured using a NGSP-certified method. HbA1c value equal to or greater than 6.5% as thediagnosis cutoff for diabetes. An HbA1c value of 5.7- 6.4% indicates increased risk for diabetes (prediabetes)."Pad Making Machine Operator ID - ADMOperator ID - ADMBASIC METABOLIC [id number] 04:16:45 Test Item Value Reference Range Interpretation Comments SODIUM (BEAKER) 139 meq/L 136-145 (test code = 381) POTASSIUM 3.5 meq/L 3.5-5.1 (BEAKER) (test code = 379) CHLORIDE (BEAKER) 105 meq/L 98-107 (test code = 382) CO2 (BEAKER) 26 meq/L 22-29 (test code = 355) BLOOD UREA 15 mg/dL 7-21 NITROGEN (BEAKER) (test code = 354) CREATININE 1.01 mg/dL 0.57-1.25 (BEAKER) (test code = 358) GLUCOSE RANDOM 103 mg/dL 70-105 (BEAKER) (test code = 652) CALCIUM (BEAKER) 8.9 mg/dL 8.4-10.2 (test code = 697) EGFR (BEAKER) 93 Interpretatio n of eGFR (test code = mL/min/1.73 values Stage De scription 1092) sq m Result G1 Norm al or high >=90 G2 Mildly decreased 60-89 G3a Mildl y to moderately 45-5 9 G3b Moderately to s everely 30-44 G4 Severl y decreased 15-29 G5 Kidney failure <15Reported eGF R is based on the CKD-EPI 2020 equation that d oes not use a race coefficientEsti mated GFR is not as accur ate as Creatinine Lorie marie in predicting glom erular filtration rate . Estimated GFR is not appl icable for dialysis patien ts Pad Making Machine Operator ID - LIDIA LLIPID [id number] 04:16:45 Test Item Value Reference Range Interpretation Comments TRIGLYCERIDES (BEAKER) (test code = 114 mg/dL 540) CHOLESTEROL (BEAKER) (test code = 153 mg/dL 631) HDL CHOLESTEROL (BEAKER) (test code 28 mg/dL = 976) LDL CHOLESTEROL CALCULATED (BEAKER) 102 mg/dL (test code = 633) Triglyceride Reference Range: Low Risk <150 Borderline 150-199 High Risk 200- 499 Very High Risk >=500Cholesterol Reference Range: Low Risk <200 Borderline 200-239 High Risk >240HDL Cholesterol Reference Range: Low Risk >=60 High Risk <40LDL Cholesterol Reference Range: Optimal <100 Near Optimal 100-129 Borderline 130-159 High 160-189 Very High >=190 Pad Making Machine Operator ID - LIDIA LCBC W/PLT COUNT & AUTO [id number] 03:49:19 Test Item Value Reference Range Interpretation Comments WHITE BLOOD CELL COUNT (BEAKER) 5.7 K/ L 3.5-10.5 (test code = 775) RED BLOOD CELL COUNT (BEAKER) 4.96 M/ L 4.63-6.08 (test code = 761) HEMOGLOBIN (BEAKER) (test code = 14.7 GM/DL 13.7-17.5 410) HEMATOCRIT (BEAKER) (test code = 43.3 % 40.1-51.0 411) MEAN CORPUSCULAR VOLUME (BEAKER) 87 fL 79-92 (test code = 753) MEAN CORPUSCULAR HEMOGLOBIN 29.6 pg 25.7-32.2 (BEAKER) (test code = 751) MEAN CORPUSCULAR HEMOGLOBIN CONC 33.9 GM/DL 32.3-36.5 (BEAKER) (test code = 752) RED CELL DISTRIBUTION WIDTH 13.2 % 11.6-14.4 (BEAKER) (test code = 412) PLATELET COUNT (BEAKER) (test 228 K/CU MM 150-450 code = 756) MEAN PLATELET VOLUME (BEAKER) 10.2 fL 9.4-12.4 (test code = 754) NUCLEATED RED BLOOD CELLS 0 /100 WBC 0-0 (BEAKER) (test code = 413) NEUTROPHILS RELATIVE PERCENT 56 % (BEAKER) (test code = 429) LYMPHOCYTES RELATIVE PERCENT 24 % (BEAKER) (test code = 430) MONOCYTES RELATIVE PERCENT 12 % (BEAKER) (test code = 431) EOSINOPHILS RELATIVE PERCENT 7 % (BEAKER) (test code = 432) BASOPHILS RELATIVE PERCENT 1 % (BEAKER) (test code = 437) NEUTROPHILS ABSOLUTE COUNT 3.18 K/ L 1.78-5.38 (BEAKER) (test code = 670) LYMPHOCYTES ABSOLUTE COUNT 1.38 K/ L 1.32-3.57 (BEAKER) (test code = 414) MONOCYTES ABSOLUTE COUNT (BEAKER) 0.69 K/ L 0.30-0.82 (test code = 415) EOSINOPHILS ABSOLUTE COUNT 0.40 K/ L 0.04-0.54 (BEAKER) (test code = 416) BASOPHILS ABSOLUTE COUNT (BEAKER) 0.03 K/ L 0.01-0.08 (test code = 417) IMMATURE GRANULOCYTES-RELATIVE 0.20 % 0.00-1.00 PERCENT (BEAKER) (test code = 2801) [id number] 20:36:02 Test Item Value Reference Range Interpretation Comments HOMOCYSTEINE (BEAKER) (test code 11.8 umol/L 5.1-15.4 = 642) Pad Making Machine Operator ID - PIBEL LHIV-1 ANTIGEN WITH HIV-1/2 [id number] 19:56:33 Test Item Value Reference Range Interpretation Comments HIV-1 ANTIGEN WITH HIV 1\\T\\2 Nonreactive Nonreactive ANTIBODY (2) (BEAKER) (test code = 2586) Pad Making Machine Operator ID - PIAYA LCOMPLEMENT COMPONENT [id number] 19:35:56 Test Item Value Reference Range Interpretation Comments C4 COMPLEMENT (BEAKER) (test code = 31 mg/dL 15-57 394) Pad Making Machine Operator ID - PIAYA LCOMPLEMENT COMPONENT [id number] 19:35:56 Test Item Value Reference Range Interpretation Comments C3 COMPLEMENT (BEAKER) (test code = 115 mg/dL 82-193 393) Pad Making Machine Operator ID - PIAYA LVITAMIN [id number] 13:18:22 Test Item Value Reference Range Interpretation Comments VITAMIN B12 (BEAKER) (test code = 829 pg/mL 213-816 H 774) Pad Making Machine Operator ID Bill MURILLO LHIGH SENSITIVITY TROPONIN [id number] 12:58:19 Test Item Value Reference Range Interpretation Comments HIGH SENSITIVITY 7 pg/ml See_Comment [Automated message] TROPONIN I (test code = The system which [id number]) generated this result transmitted ref erence range: <=35. Th e reference range was not used to interpr et this result as normal/abnormal . Pad Making Machine Operator ID - LIDIA LThe CLOTH WINDER STAT High Sensitivity Troponin-I results should be used in conjunction with other diagnostic information such as ECG, clinical observations and information, and patient symptoms to aid in the diagnosis of [place].C-REACTIVE [id number] 12:49:00 Test Item Value Reference Range Interpretation Comments C-REACTIVE PROTEIN (BEAKER) (test 0.47 mg/dL 0.00-0.50 code = 676) Pad Making Machine Operator ID Bill MURILLO LSARS-CoV2/RT-PCR (Asymptomatic ONLY)2022-03-24 11:05:31 Test Item Value Reference Interpretation Comments Range SARS-COV2/RT-PCR Negative Negative The SARS-Co V-2 (test code = target nucleic 52209-6) acids are not detected in thi s specimen. Negat tash results do not preclude SARS-C oV-2 infection and should not be u sed as the sole bas is for patient management decisions. Nega tive results must be combined with clinical observations, patient history , and epidemiolog ical information. A false negative result may occu r if a specimen is improperly collected, transported or handled. This S ARS CoV-2 test is a rapid, real-tiburcio e RT-PCR test intended for th e qualitative detection of nucleic acid fr om SARS-CoV-2 in a nasopharyngeal swab specimen [facility] from individual s suspected of COVID-19 by the ir healthcare provider. CHIKA (test code = This test has been CHIKA) authorized by FDA under an EUA for use by authorized laboratories. This test is only authorized for the duration of the declaration that circumstances exist justifying the authorization of emergency use of in vitro diagnostic tests for detection and/or diagnosis of COVID-19 under Section 564(b)(1) of the Federal Food, Drug and Cosmetic Act, 21 U.S.C. 360bbb-3(b)(1), unless the authorization is terminated or revoked sooner. Fact Sheet for Healthcare Providers: https://www.[employer]/Documents/Xp ert%20Xpress%20SAR S%20CoV-2/Fact%20S heets/302-3802%20S ARS-COV-2%20HEALTH CARE%20PROVIDERS%2 0FACT%20SHEET.pdf Fact Sheet for Healthcare Patients: https://www.[employer]/Documents/Xp ert%20Xpress%20SAR S%20CoV-2/Fact%20S heets/302-3801%20S ARS-COV-2%20PATIEN T%20FACT%20SHEET.p df Lab Interpretation Normal (test code = 09270-7) [facility]-24 11:05:31 Test Item Value Reference Interpretation Comments Range SARS-COV2/RT-PCR Negative Negative The SARS-Co V-2 (test code = target nucleic 29030-9) acids are not detected in thi s specimen. Negat tash results do not preclude SARS-C oV-2 infection and should not be u sed as the sole bas is for patient management decisions. Nega tive results must be combined with clinical observations, patient history , and epidemiolog ical information. A false negative result may occu r if a specimen is improperly collected, transported or handled. This S ARS CoV-2 test is a rapid, real-tiburcio e RT-PCR test intended for th e qualitative detection of nucleic acid fr om SARS-CoV-2 in a nasopharyngeal swab specimen colle lucian from individual s suspected of COVID-19 by the ir healthcare provider. CHIKA (test code = This test has been CHIKA) authorized by FDA under an EUA for use by authorized laboratories. This test is only authorized for the duration of the declaration that circumstances exist justifying the authorization of emergency use of in vitro diagnostic tests for detection and/or diagnosis of COVID-19 under Section 564(b)(1) of the Federal Food, Drug and Cosmetic Act, 21 U.S.C. 360bbb-3(b)(1), unless the authorization is terminated or revoked sooner. Fact Sheet for Healthcare Providers: https://www.[employer]/Documents/Xp ert%20Xpress%20SAR S%20CoV-2/Fact%20S heets/302-3802%20S ARS-COV-2%20HEALTH CARE%20PROVIDERS%2 0FACT%20SHEET.pdf Fact Sheet for Healthcare Patients: https://www.[employer]/Documents/Xp ert%20Xpress%20SAR S%20CoV-2/Fact%20S heets/302-3801%20S ARS-COV-2%20PATIEN T%20FACT%20SHEET.p df Lab Interpretation Normal (test code = 43145-1) [facility])2022-03-24 11:05:31 Test Item Value Reference Range Interpretation Comments SARS-COV2/RT-PCR Negative Negative The SARS-Co V-2 target (test code = nucleic acids a re not 3809263) detected in thi s specimen. Negative result s do not preclude SARS-C oV-2 infection and s hould not be used as the hafsa e basis for patient managem ent decisions. Nega tive results must be combine d with clinical observ ations, patient history , and epidemiological information. A false negativ e result may occur if a spec imen is improperly tanvir ected, transported or handled. This SARS CoV-2 test is a rapid, real-time RT-PC R test intended for th e qualitative detection of nu cleic acid from SARS-CoV-2 in a nasopharyngeal swab specimen collected from individuals suspected of CO VID-19 by their healthcar e provider. This test has been authorized by FDA under an EUA for use by authorized laboratories. This test is only authorized for the duration of the declaration that circumstances exist justifying the authorization of emergency use of in vitro diagnostic tests for detection and/or diagnosis of COVID-19 under Section 564(b)(1) of the Federal Food, Drug and Cosmetic Act, 21 U.S.C. 360bbb-3(b)(1), unless the authorization is terminated or revoked sooner. Fact Sheet for Healthcare Providers: https://www.[employer]/Documents/Xpert%20Xpress%20SARS%20CoV-2/Fact%20Sheets/302-3802%62ZQJK-KXX-9%20 HEALTHCARE%20PROVIDERS%20FACT%20SHEET.pdf Fact Sheet for Healthcare Patients: https://www.[employer]/Documents/Xpert%20Xp ress%20SARS%20CoV-2/Fact%20Sheets/302-3801%41LEAS-CNJ-5%20PATIENT%20FACT%20SHEET .pdfTSH/FREE T4 IF [id number] 10:30:22 Test Item Value Reference Range Interpretation Comments THYROID STIMULATING HORMONE 1.002 uIU/mL 0.350-4.940 (BEAKER) (test code = 772) Pad Making Machine Operator ID - PIAYA LCOMPREHENSIVE METABOLIC [id number] 10:10:35 Test Item Value Reference Range Interpretation Comments TOTAL PROTEIN 7.2 gm/dL 6.0-8.3 (BEAKER) (test code = 770) ALBUMIN (BEAKER) 4.1 g/dL 3.5-5.0 (test code = 1145) ALKALINE 72 U/L 40-150 PHOSPHATASE (BEAKER) (test code = 346) BILIRUBIN TOTAL 0.9 mg/dL 0.2-1.2 (BEAKER) (test code = 377) SODIUM (BEAKER) 134 meq/L 136-145 L (test code = 381) POTASSIUM (BEAKER) 3.6 meq/L 3.5-5.1 (test code = 379) CHLORIDE (BEAKER) 98 meq/L 98-107 (test code = 382) CO2 (BEAKER) (test 25 meq/L 22-29 code = 355) BLOOD UREA 18 mg/dL 7-21 NITROGEN (BEAKER) (test code = 354) CREATININE 1.26 mg/dL 0.57-1.25 H (BEAKER) (test code = 358) GLUCOSE RANDOM 111 mg/dL 70-105 H (BEAKER) (test code = 652) CALCIUM (BEAKER) 9.2 mg/dL 8.4-10.2 (test code = 697) AST (SGOT) 29 U/L 5-34 (BEAKER) (test code = 353) ALT (SGPT) 27 U/L 6-55 (BEAKER) (test code = 347) EGFR (BEAKER) 71 Interpretatio n of eGFR (test code = 1092) mL/min/1.[address] age Description sq m Result G1 Lilliam l or high >=90 G2 Mildly decreased 60-89 G3a Mild ly to moderately 45-5 9 G3b Moderately to s everely 30-44 G4 Severl y decreased 15-29 G5 Kidney failure <15Reported eGF R is based on the CKD-EPI 2020 equation that d oes not use a race coefficientEsti mated GFR is not as accur ate as Creatinine Lorie cynthia in predicting glom erular filtration rate . Estimated GFR is not appl icable for dialysis patien ts Pad Making Machine Operator ID - LIDIA [id number] 10:10:35 Test Item Value Reference Range Interpretation Comments MAGNESIUM (BEAKER) (test code = 2.1 mg/dL 1.6-2.6 627) Pad Making Machine Operator ID - LIDIA [id number] 10:10:35 Test Item Value Reference Range Interpretation Comments PHOSPHORUS (BEAKER) (test code = 2.9 mg/dL 2.3-4.7 604) Pad Making Machine Operator ID - LIDIA LPROTHROMBIN TIME/[id number] 10:08:13 Test Item Value Reference Range Interpretation Comments PROTIME (BEAKER) 14.9 seconds 11.9-14.2 H (test code = 759) INR (BEAKER) (test 1.24 See_Comment [Automat ed message] code = 370) The system [employer] generated this result transmitted ref erence range: <=5.90. The reference range was not used to int erpret this result as normal/abnormal . RECOMMENDED COUMADIN/WARFARIN INR THERAPY RANGESSTANDARD DOSE: 2.0 - 3.0 Includes: PROPHYLAXIS for venous thrombosis, systemic embolization; TREATMENT for venous thrombosis and/or pulmonary embolus.HIGH RISK: Target INR is 2.5-3.5 for patients with mechanical heart valves.CT, BRAIN/STROKE [id number] 10:03:00[facility]ENTERName: [facility]EN [facility] : 1975 Sex: MFINAL REPORT CT, BRAIN/STROKE PROTOCOL, CT, CAROTID, ANGIO, CT, CEREBRAL PERFUSION ANALYSIS, CT, CTANGIO BRAIN INDICATION: Neuro deficit COMPARISON: None TECHNIQUE: Rapid acquisition spiralimages were obtained between the aortic arch and the cranial vertex during intravenous contrast infusion to reconstruct axial images and angiographic 3D maximum intensity projections (MIP) .Three dimens ional reformatted images were created at a dedicated workstation. Precontrast images of the brain were also obtained. Perfusion imaging technique:Arterial input function: Left distal ICAVenous outflow function: Straight sinusSite of normal perfusion: right anterior territory Stenosis evaluation reported in compliance with NASCET criteria. DOSE REDUCTION: Dose modulation, iterative reconstruction, and/or weight-based adjustment of the mA/kV was utilized to reduce the radiation dose to as low as reasonably achievable. FINDINGS:NECT BRAIN:NONCONTRAST CT HEAD: Cerebral parenchyma: Hypodensities are seen in the right MCA territory involving the frontal and parietal lobes. There are questionable subtle petechial hemorrhages in the pericolonic region (axial image 27). A partially empty sella is present.Midline structures: Normally positioned.Cerebellum and brainstem: Normal.Ventricles: Normal volume.Extra- axial spaces: Unremarkable.Calvarium and skull base: Intact.Paranasal sinuses and mastoid air cells: Retention cysts in the bilateral maxillary sinuses. Complete opacification of the left ethmoid and sphenoid sinuses.Orbital contents: Included portions unremarkable. CTA BRAIN:Internal carotid arteries: Asymmetrically reduced caliber of the right petrous, lacerum, cavernous and clinoid segments. Occlusion at the right supraclinoid and communicating segments.Middle cerebral arteries: Severely reduced caliber of the right proximal M1 with occlusion at the right mid to distal M1 segment. There is rec onstitution with moderate to severely reduced caliber at the right M2 branches. Asymmetrically reduced number of M3 branches in the right frontoparietal region.Anterior cerebral arteries: Hypoplastic left A1 segment. Severely reduced caliber of the right A1 segment. Moderate to severely reduced caliber of the bilateral A2 segments.Basilar system: Patent vertebrobasilar system.Posterior cerebral arteries:Occlusion/severely reduced caliber of the left [employer] at the proximal P2 segment. There is irregularwispy vasculature along the course of the left P2 segment the right [employer] is patent.Venous opacification: Major dural sinuses unremarkable for bolus timing.Additional findings: None. CTA NECK:Common carotid arteries: The common carotid arteries are normal in size. Bifurcations: show No flow-limiting stenosis. Cervical internal carotid arteries: Long segment moderate to severely reduced caliber of the right ICA beginning at the C2-C3 levelVertebral arteries: Codominant. No origin stenosis.Arch anatomy: Conventional CT PERFUSION PARAMETRIC MAPS: CBF: Decreased blood flow in the right frontoparietal regionMTT: Elevated in the right MCA territory, bilateral SOPHY territories and left [employer] territoryCBV: Areas of decreased relative cerebral blood volume in the right MCA territoryTmax: Elevated throughout the right MCA territory, along with the bilateral SOPHY territories and left [employer] territory Nonvascular findings:Osseous structures: No acute osseous abnormality. Intact calvarium and skull base. Mild to moderate spondylosis and facet arthropathy are present within the spine.Cervical soft tissues: No adenopathy. Patent aerodigestive tract.Lung apices: No apical consolidation or pneumothorax. IMPRESSION: CTbrain:1.Age-indeterminate, acute to subacute appearing right MCA territory infarcts with questionable subtle petechial hemorrhages.2.No midline shift or herniation. CTA and CT perfusion:1.Multiple abnormalities involving the [place] and right ICA, suggesting underlying vasculitis. 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 Severely reduced caliber of the proximal M1 segment and absence of distal MCA branches in the right frontoparietal region noted.3.Occlusion of the right ICA supraclinoid and communicating segments, and asymmetrically reduced caliber of the right ICA petrous, lacerum, and clinoid segments.4.Severely reduced caliber of the right SOPHY A1 segment and hypoplastic left A1 segment.5.Occlusion/severe irregularity at the left [employer] beginning at the P1/P2 junction.6.Moderate to severely reduced caliber of the right ICA cervical segment beginning at the C2-C3 leveland extending intracranially.7.Perfusion maps suggest infarcts throughout the right MCA territory, bilateral SOPHY territories, and left [employer] territory. Areas of core infarct are noted within the right MCA territory in the frontoparietal region. The above findings were discussed with Dr. Tripathi, who acknowledged the findings, on 03/24/2022 at 9:40 AM. Signed: Rach Singleton [facility] Verified Date/Time: 03/24/2022 10:03:04 CT, CTANGIO [id number] 10:03:00Unlisted Reason for Exam - Click Yes and Enter Reason Below->No [facility] : 1975 Sex: MFINAL REPORT CT, BRAIN/STROKE PROTOCOL, CT, CAROTID, ANGIO, CT, CEREBRAL PERFUSION ANALYSIS, CT, CTANGIO BRAIN INDICATION: Neuro deficit COMPARISON: None TECHNIQUE: Rapid acquisition spiralimages were obtained between the aortic arch and the cranial vertex during intravenous contrast infusion to reconstruct axial images and angiographic 3D maximum intensity projections (MIP) .Three dimens ional reformatted images were created at a dedicated workstation. Precontrast images of the brain were also obtained. Perfusion imaging technique:Arterial input function: Left distal ICAVenous outflow function: Straight sinusSite of normal perfusion: right anterior territory Stenosis evaluation reported in compliance with NASCET criteria. DOSE REDUCTION: Dose modulation, iterative reconstruction, and/or weight-based adjustment of the mA/kV was utilized to reduce the radiation dose to as low as reasonably achievable. FINDINGS:NECT BRAIN:NONCONTRAST CT HEAD: Cerebral parenchyma: Hypodensities are seen in the right MCA territory involving the frontal and parietal lobes. There are questionable subtle petechial hemorrhages in the pericolonic region (axial image 27). A partially empty sella is present.Midline structures: Normally positioned.Cerebellum and brainstem: Normal.Ventricles: Normal volume.Extra- axial spaces: Unremarkable.Calvarium and skull base: Intact.Paranasal sinuses and mastoid air cells: Retention cysts in the bilateral maxillary sinuses. Complete opacification of the left ethmoid and sphenoid sinuses.Orbital contents: Included portions unremarkable. CTA BRAIN:Internal carotid arteries: Asymmetrically reduced caliber of the right petrous, lacerum, cavernous and clinoid segments. Occlusion at the right supraclinoid and communicating segments.Middle cerebral arteries: Severely reduced caliber of the right proximal M1 with occlusion at the right mid to distal M1 segment. There is rec onstitution with moderate to severely reduced caliber at the right M2 branches. Asymmetrically reduced number of M3 branches in the right frontoparietal region.Anterior cerebral arteries: Hypoplastic left A1 segment. Severely reduced caliber of the right A1 segment. Moderate to severely reduced caliber of the bilateral A2 segments.Basilar system: Patent vertebrobasilar system.Posterior cerebral arteries:Occlusion/severely reduced caliber of the left [employer] at the proximal P2 segment. There is irregularwispy vasculature along the course of the left P2 segment the right [employer] is patent.Venous opacification: Major dural sinuses unremarkable for bolus timing.Additional findings: None. CTA NECK:Common carotid arteries: The common carotid arteries are normal in size. Bifurcations: show No flow-limiting stenosis. Cervical internal carotid arteries: Long segment moderate to severely reduced caliber of the right ICA beginning at the C2-C3 levelVertebral arteries: Codominant. No origin stenosis.Arch anatomy: Conventional CT PERFUSION PARAMETRIC MAPS: CBF: Decreased blood flow in the right frontoparietal regionMTT: Elevated in the right MCA territory, bilateral SOPHY territories and left [employer] territoryCBV: Areas of decreased relative cerebral blood volume in the right MCA territoryTmax: Elevated throughout the right MCA territory, along with the bilateral SOPHY territories and left [employer] territory Nonvascular findings:Osseous structures: No acute osseous abnormality. Intact calvarium and skull base. Mild to moderate spondylosis and facet arthropathy are present within the spine.Cervical soft tissues: No adenopathy. Patent aerodigestive tract.Lung apices: No apical consolidation or pneumothorax. IMPRESSION: CTbrain:1.Age-indeterminate, acute to subacute appearing right MCA territory infarcts with questionable subtle petechial hemorrhages.2.No midline shift or herniation. CTA and CT perfusion:1.Multiple abnormalities involving the [place] and right ICA, suggesting underlying vasculitis. 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 Severely reduced caliber of the proximal M1 segment and absence of distal MCA branches in the right frontoparietal region noted.3.Occlusion of the right ICA supraclinoid and communicating segments, and asymmetrically reduced caliber of the right ICA petrous, lacerum, and clinoid segments.4.Severely reduced caliber of the right SOPHY A1 segment and hypoplastic left A1 segment.5.Occlusion/severe irregularity at the left [employer] beginning at the P1/P2 junction.6.Moderate to severely reduced caliber of the right ICA cervical segment beginning at the C2-C3 leveland extending intracranially.7.Perfusion maps suggest infarcts throughout the right MCA territory, bilateral SOPHY territories, and left [employer] territory. Areas of core infarct are noted within the right MCA territory in the frontoparietal region. The above findings were discussed with Dr. Tripathi, who acknowledged the findings, on 03/24/2022 at 9:40 AM. Signed: Rach Singleton [place] Verified Date/Time: 03/24/2022 10:03:04 [facility], CEREBRAL PERFUSION [id number] 10:03:00Reason for Exam:->stroke like symptomsKA[facility] : 1975 Sex: MFINAL REPORT CT, BRAIN/STROKE PROTOCOL, CT, CAROTID, ANGIO, CT, CEREBRAL PERFUSION ANALYSIS, CT, CTANGIO BRAIN INDICATION: Neuro deficit COMPARISON: None TECHNIQUE: Rapid acquisition spiralimages were obtained between the aortic arch and the cranial vertex during intravenous contrast infusion to reconstruct axial images and angiographic 3D maximum intensity projections (MIP) .Three dimens ional reformatted images were created at a dedicated workstation. Precontrast images of the brain were also obtained. Perfusion imaging technique:Arterial input function: Left distal ICAVenous outflow function: Straight sinusSite of normal perfusion: right anterior territory Stenosis evaluation reported in compliance with NASCET criteria. DOSE REDUCTION: Dose modulation, iterative reconstruction, and/or weight-based adjustment of the mA/kV was utilized to reduce the radiation dose to as low as reasonably achievable. FINDINGS:NECT BRAIN:NONCONTRAST CT HEAD: Cerebral parenchyma: Hypodensities are seen in the right MCA territory involving the frontal and parietal lobes. There are questionable subtle petechial hemorrhages in the pericolonic region (axial image 27). A partially empty sella is present.Midline structures: Normally positioned.Cerebellum and brainstem: Normal.Ventricles: Normal volume.Extra- axial spaces: Unremarkable.Calvarium and skull base: Intact.Paranasal sinuses and mastoid air cells: Retention cysts in the bilateral maxillary sinuses. Complete opacification of the left ethmoid and sphenoid sinuses.Orbital contents: Included portions unremarkable. CTA BRAIN:Internal carotid arteries: Asymmetrically reduced caliber of the right petrous, lacerum, cavernous and clinoid segments. Occlusion at the right supraclinoid and communicating segments.Middle cerebral arteries: Severely reduced caliber of the right proximal M1 with occlusion at the right mid to distal M1 segment. There is rec onstitution with moderate to severely reduced caliber at the right M2 branches. Asymmetrically reduced number of M3 branches in the right frontoparietal region.Anterior cerebral arteries: Hypoplastic left A1 segment. Severely reduced caliber of the right A1 segment. Moderate to severely reduced caliber of the bilateral A2 segments.Basilar system: Patent vertebrobasilar system.Posterior cerebral arteries:Occlusion/severely reduced caliber of the left [employer] at the proximal P2 segment. There is irregularwispy vasculature along the course of the left P2 segment the right [employer] is patent.Venous opacification: Major dural sinuses unremarkable for bolus timing.Additional findings: None. CTA NECK:Common carotid arteries: The common carotid arteries are normal in size. Bifurcations: show No flow-limiting stenosis. Cervical internal carotid arteries: Long segment moderate to severely reduced caliber of the right ICA beginning at the C2-C3 levelVertebral arteries: Codominant. No origin stenosis.Arch anatomy: Conventional CT PERFUSION PARAMETRIC MAPS: CBF: Decreased blood flow in the right frontoparietal regionMTT: Elevated in the right MCA territory, bilateral SOPHY territories and left [employer] territoryCBV: Areas of decreased relative cerebral blood volume in the right MCA territoryTmax: Elevated throughout the right MCA territory, along with the bilateral SOPHY territories and left [employer] territory Nonvascular findings:Osseous structures: No acute osseous abnormality. Intact calvarium and skull base. Mild to moderate spondylosis and facet arthropathy are present within the spine.Cervical soft tissues: No adenopathy. Patent aerodigestive tract.Lung apices: No apical consolidation or pneumothorax. IMPRESSION: CTbrain:1.Age-indeterminate, acute to subacute appearing right MCA territory infarcts with questionable subtle petechial hemorrhages.2.No midline shift or herniation. CTA and CT perfusion:1.Multiple abnormalities involving the [place] and right ICA, suggesting underlying vasculitis. 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 Severely reduced caliber of the proximal M1 segment and absence of distal MCA branches in the right frontoparietal region noted.3.Occlusion of the right ICA supraclinoid and communicating segments, and asymmetrically reduced caliber of the right ICA petrous, lacerum, and clinoid segments.4.Severely reduced caliber of the right SOPHY A1 segment and hypoplastic left A1 segment.5.Occlusion/severe irregularity at the left [employer] beginning at the P1/P2 junction.6.Moderate to severely reduced caliber of the right ICA cervical segment beginning at the C2-C3 leveland extending intracranially.7.Perfusion maps suggest infarcts throughout the right MCA territory, bilateral SOPHY territories, and left [employer] territory. Areas of core infarct are noted within the right MCA territory in the frontoparietal region. The above findings were discussed with Dr. Tripathi, who acknowledged the findings, on 03/24/2022 at 9:40 AM. Signed: Rach Singleton Verified Date/Time: 03/24/2022 10:03:04 CT, CAROTID, [id number] 10:03:00Unlisted Reason for Exam - Click Yes and Enter Reason Below->No [facility]: WAYNE [facility]AM[facility] : 1975 Sex: MFINAL REPORT CT, BRAIN/STROKE PROTOCOL, CT, CAROTID, ANGIO, CT, CEREBRAL PERFUSION ANALYSIS, CT, CTANGIO BRAIN INDICATION: Neuro deficit COMPARISON: None TECHNIQUE: Rapid acquisition spiralimages were obtained between the aortic arch and the cranial vertex during intravenous contrast infusion to reconstruct axial images and angiographic 3D maximum intensity projections (MIP) .Three dimens ional reformatted images were created at a dedicated workstation. Precontrast images of the brain were also obtained. Perfusion imaging technique:Arterial input function: Left distal ICAVenous outflow function: Straight sinusSite of normal perfusion: right anterior territory Stenosis evaluation reported in compliance with NASCET criteria. DOSE REDUCTION: Dose modulation, iterative reconstruction, and/or weight-based adjustment of the mA/kV was utilized to reduce the radiation dose to as low as reasonably achievable. FINDINGS:NECT BRAIN:NONCONTRAST CT HEAD: Cerebral parenchyma: Hypodensities are seen in the right MCA territory involving the frontal and parietal lobes. There are questionable subtle petechial hemorrhages in the pericolonic region (axial image 27). A partially empty sella is present.Midline structures: Normally positioned.Cerebellum and brainstem: Normal.Ventricles: Normal volume.Extra- axial spaces: Unremarkable.Calvarium and skull base: Intact.Paranasal sinuses and mastoid air cells: Retention cysts in the bilateral maxillary sinuses. Complete opacification of the left ethmoid and sphenoid sinuses.Orbital contents: Included portions unremarkable. CTA BRAIN:Internal carotid arteries: Asymmetrically reduced caliber of the right petrous, lacerum, cavernous and clinoid segments. Occlusion at the right supraclinoid and communicating segments.Middle cerebral arteries: Severely reduced caliber of the right proximal M1 with occlusion at the right mid to distal M1 segment. There is rec onstitution with moderate to severely reduced caliber at the right M2 branches. Asymmetrically reduced number of M3 branches in the right frontoparietal region.Anterior cerebral arteries: Hypoplastic left A1 segment. Severely reduced caliber of the right A1 segment. Moderate to severely reduced caliber of the bilateral A2 segments.Basilar system: Patent vertebrobasilar system.Posterior cerebral arteries:Occlusion/severely reduced caliber of the left [employer] at the proximal P2 segment. There is irregularwispy vasculature along the course of the left P2 segment the right [employer] is patent.Venous opacification: Major dural sinuses unremarkable for bolus timing.Additional findings: None. CTA NECK:Common carotid arteries: The common carotid arteries are normal in size. Bifurcations: show No flow-limiting stenosis. Cervical internal carotid arteries: Long segment moderate to severely reduced caliber of the right ICA beginning at the C2-C3 levelVertebral arteries: Codominant. No origin stenosis.Arch anatomy: Conventional CT PERFUSION PARAMETRIC MAPS: CBF: Decreased blood flow in the right frontoparietal regionMTT: Elevated in the right MCA territory, bilateral SOPHY territories and left [employer] territoryCBV: Areas of decreased relative cerebral blood volume in the right MCA territoryTmax: Elevated throughout the right MCA territory, along with the bilateral SOPHY territories and left [employer] territory Nonvascular findings:Osseous structures: No acute osseous abnormality. Intact calvarium and skull base. Mild to moderate spondylosis and facet arthropathy are present within the spine.Cervical soft tissues: No adenopathy. Patent aerodigestive tract.Lung apices: No apical consolidation or pneumothorax. IMPRESSION: CTbrain:1.Age-indeterminate, acute to subacute appearing right MCA territory infarcts with questionable subtle petechial hemorrhages.2.No midline shift or herniation. CTA and CT perfusion:1.Multiple abnormalities involving the [place] and right ICA, suggesting underlying vasculitis. 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 Severely reduced caliber of the proximal M1 segment and absence of distal MCA branches in the right frontoparietal region noted.3.Occlusion of the right ICA supraclinoid and communicating segments, and asymmetrically reduced caliber of the right ICA petrous, lacerum, and clinoid segments.4.Severely reduced caliber of the right SOPHY A1 segment and hypoplastic left A1 segment.5.Occlusion/severe irregularity at the left [employer] beginning at the P1/P2 junction.6.Moderate to severely reduced caliber of the right ICA cervical segment beginning at the C2-C3 leveland extending intracranially.7.Perfusion maps suggest infarcts throughout the right MCA territory, bilateral SOPHY territories, and left [employer] territory. Areas of core infarct are noted within the right MCA territory in the frontoparietal region. The above findings were discussed with Dr. Tripathi, who acknowledged the findings, on 03/24/2022 at 9:40 AM. Signed: Rach Singleton [facility] Verified Date/Time: 03/24/2022 10:03:04 CBC W/PLT COUNT & AUTO [id number] 09:46:15 Test Item Value Reference Range Interpretation Comments WHITE BLOOD CELL COUNT (BEAKER) 4.7 K/ L 3.5-10.5 (test code = 775) RED BLOOD CELL COUNT (BEAKER) 5.34 M/ L 4.63-6.08 (test code = 761) HEMOGLOBIN (BEAKER) (test code = 16.0 GM/DL 13.7-17.5 410) HEMATOCRIT (BEAKER) (test code = 45.8 % 40.1-51.0 411) MEAN CORPUSCULAR VOLUME (BEAKER) 86 fL 79-92 (test code = 753) MEAN CORPUSCULAR HEMOGLOBIN 30.0 pg 25.7-32.2 (BEAKER) (test code = 751) MEAN CORPUSCULAR HEMOGLOBIN CONC 34.9 GM/DL 32.3-36.5 (BEAKER) (test code = 752) RED CELL DISTRIBUTION WIDTH 13.1 % 11.6-14.4 (BEAKER) (test code = 412) PLATELET COUNT (BEAKER) (test 221 K/CU MM 150-450 code = 756) MEAN PLATELET VOLUME (BEAKER) 10.5 fL 9.4-12.4 (test code = 754) NUCLEATED RED BLOOD CELLS 0 /100 WBC 0-0 (BEAKER) (test code = 413) NEUTROPHILS RELATIVE PERCENT 65 % (BEAKER) (test code = 429) LYMPHOCYTES RELATIVE PERCENT 20 % (BEAKER) (test code = 430) MONOCYTES RELATIVE PERCENT 11 % (BEAKER) (test code = 431) EOSINOPHILS RELATIVE PERCENT 4 % (BEAKER) (test code = 432) BASOPHILS RELATIVE PERCENT 1 % (BEAKER) (test code = 437) NEUTROPHILS ABSOLUTE COUNT 3.08 K/ L 1.78-5.38 (BEAKER) (test code = 670) LYMPHOCYTES ABSOLUTE COUNT 0.93 K/ L 1.32-3.57 L (BEAKER) (test code = 414) MONOCYTES ABSOLUTE COUNT (BEAKER) 0.50 K/ L 0.30-0.82 (test code = 415) EOSINOPHILS ABSOLUTE COUNT 0.17 K/ L 0.04-0.54 (BEAKER) (test code = 416) BASOPHILS ABSOLUTE COUNT (BEAKER) 0.04 K/ L 0.01-0.08 (test code = 417) IMMATURE GRANULOCYTES-RELATIVE 0.20 % 0.00-1.00 PERCENT (BEAKER) (test code = 2801)
[2022-11-14] MEDS ORDERED: MORPHINE 4 MG/ML SYR ONE ×3 (16:52→17:51)
[2022-11-14] MEDS ORDERED: FAMOTIDINE 20 MG/2 ML VIAL IV ONE ×2 (16:52→16:58)
[2022-11-14] MEDS ORDERED: NA CHLORIDE 0.9% 1,000 ML ONE ×2 (16:52→16:58)
[2022-11-14] MEDS ORDERED: ONDANSETRON 4 MG/2 ML VIAL ONE ×2 (16:52→16:57)
[2022-11-14 17:00] LABS: Hematocrit 44.4 % (39.6-49.0); Lymphocytes % 10.3 % (15.3-44.8); MCV 89.6 fL (80-100); MPV 8.5 fL (7.6-11.3); RBC Red Blood Cell Count 4.96 M/uL (4.33-5.43)
[2022-11-14 17:08] LABS: Bilirubin Total 0.4 mg/dL (0.2-1.0); Protein, Total 8.4 g/dL (6.4-8.2); Troponin High Sensitivity 6.5 pg/mL (<58.9)
--- NOTE | 2022-11-14 17:23 | RAD REPORT ---
EXAM DESCRIPTION: US - Abdomen Exam Limited - 11/14/2022 5:04 pm CLINICAL HISTORY: ABD PAIN COMPARISON: <Comparisons> FINDINGS: The gallbladder demonstrates multiple stones No pericholecystic fluid or gallbladder wall thickening. The common bile duct is normal measuring 6 mm. The liver demonstrates no findings of intrahepatic biliary dilatation. IMPRESSION: Cholelithiasis.
--- NOTE | 2022-11-14 17:35 | RAD REPORT ---
EXAM DESCRIPTION: CTAbdomen Pelvis W Contrast - 11/14/2022 5:29 pm CLINICAL HISTORY: Abdominal pain. ABD PAIN COMPARISON: <Comparisons> TECHNIQUE: Biphasic CT imaging of the abdomen and pelvis was performed with 100 ml non-ionic IV cont rast. All CT scans are performed using dose optimization technique as appropriate and may include automated exposure control or mA/KV adjustment according to patient size. FINDINGS: The lung bases are clear. The liver, spleen, pancreas, adrenal glands and kidneys are within normal limits. There is significan t distention of the gallbladder. No bowel obstruction, free air, free fluid or abscess. The appendix is normal. No evidence of signi ficant lymphadenopathy. Lumbosacral degenerative changes. IMPRESSION: Prominent gallbladder distension seen.
[2022-11-14] MEDS ORDERED: HYDRALAZINE HCL 20 MG/ML VIAL ONE (17:39)
--- NOTE | 2022-11-14 18:04 | ER ---
Nurse's Notes [facility] Name: Skyler Fairbanks Age: 47 yrs Sex: Male : 1975 Arrival Date: 11/14/2022 Time: 15:48 Bed 6 Private MD: Hermes Lopez Diagnosis: Other cholelithiasis without obstruction;Abdominal pain, Generalized;Essential (primary) hypertension Presentation: 11/14 16:14 Chief complaint: Patient states: Abdominal pain onset this morning. patient states that cm10 the pain began in his RUQ and it is now generalized. Patient also reports high blood pressure. Pts BP CHIEF GUARD was 194/103. Pt denies any chest pain or headache. Coronavirus screen: Vaccine status: Patient reports receiving the 2nd dose of the covid vaccine. Ebola Screen: No symptoms or risks identified at this time. Initial Sepsis Screen: Does the patient meet any 2 criteria? No. Patient's initial sepsis screen is negative. Does the patient have a suspected source of infection? No. Patient's initial sepsis screen is negative. Risk Assessment: Do you want to hurt yourself or someone else? Patient reports no desire to harm self or others. Onset of symptoms was November 14, 2022. 16:14 Method Of Arrival: Ambulatory cm10 16:14 Acuity: PREMA 3 cm10 Triage Assessment: 16:16 General: Appears in no apparent distress. uncomfortable, Behavior is calm, cooperative. cm10 Historical: - Allergies: 16:16 No Known Allergies; cm10 - PMHx: 16:16 eczema; Hypertensive disorder; Cerebrovascular accident; cm10 - Immunization history:: Adult Immunizations unknown. - Social history:: Smoking status: Patient denies any tobacco usage or history of. Screenin:57 [facility] ED Fall Risk Assessment (Adult) History of falling in the last 3 months, ph including since admission No falls in past 3 months (0 pts) Confusion or Disorientation No (0 pts) Intoxicated or Sedated No (0 pts) Impaired Gait Yes (1 pt) Mobility Assist Device Used Yes (1 pt) Altered Elimination No (0 pt) Score/Fall Risk Level 0 - 2 = Low Risk Oriented to surroundings, Maintained a safe environment, Hourly rounding (assess needs \T\ fall precautionary measures) done. Abuse screen: Denies threats or abuse. Denies injuries from another. Nutritional screening: No deficits noted. Tuberculosis screening: No symptoms or risk factors identified. Assessment: 16:45 General: Appears in no apparent distress. uncomfortable, Behavior is calm, cooperative, ph appropriate for age. Pain: Complains of pain in right upper quadrant. Neuro: Level of Consciousness is awake, alert, obeys commands, Oriented to person, place, time, situation. Cardiovascular: Capillary refill < 3 seconds in bilateral fingers Patient's skin is warm and dry. Respiratory: Airway is patent Respiratory effort is even, unlabored, Respiratory pattern is regular, symmetrical. GI: Abdomen is round Reports upper abdominal pain, nausea, vomiting. Derm: Skin is intact, is healthy with good turgor, Skin is pink, warm \T\ dry. Musculoskeletal: Circulation, motion, and sensation intact. hx of CVA w/ L sided deficits. 16:52 Reassessment: US at bedside. ph 18:43 Reassessment: No changes from previously documented assessment. Patient and/or family ld1 updated on plan of care and expected duration. Pain level reassessed. Vital Signs: 16:14 BP 191 / 116; Pulse 93; Resp 16; Temp 98.3(O); Pulse Ox 100% ; Weight 101.15 kg; Height cm10 5 ft. 6 in. ; Pain 9/10; 16:57 BP 198 / 100; Pulse 98; Resp 18; Pulse Ox 98% on R/A; ph 17:21 BP 200 / 106; ld1 17:59 BP 164 / 80; Pulse 104; Resp 18; Pulse Ox 98% on R/A; ph 18:43 BP 165 / 87; ld1 19:41 BP 166 / 78; Pulse 106; Resp 18; Pulse Ox 99% on R/A; kl 16:14 Body Mass Index 35.99 (101.15 kg, 167.64 cm) cm10 16:14 Pain Scale: Adult cm10 ED Course: 15:51 Patient arrived in ED. mr 15:51 Hermes Lopez MD is Private Physician. mr 16:16 Triage completed. cm10 16:16 Arm band placed on Patient placed. cm10 16:17 rEin De Leon F[facility]-C [facility]. kb 16:17 Sharath Mariee MD is Attending Physician. kb 16:19 Minoo Chiu RN is Primary Nurse. ph 16:52 Initial lab(s) drawn, by or, sent to lab. Inserted saline lock: 20 gauge in right ph antecubital area, using aseptic technique. Blood collected. 16:56 Patient has correct armband on for positive identification. Bed in low position. Call ph light in reach. Side rails up X 1. Client placed on continuous cardiac and pulse oximetry monitoring. NIBP monitoring applied. Door closed. Noise minimized. Warm blanket given. 17:04 Abdomen Limited US In Process Unspecified. EDMS 17:31 CT Abd/Pelvis - IV Contrast Only In Process Unspecified. EDMS 18:03 Hermes Lopez MD is Hospitalizing Provider. kb 19:26 Primary Nurse role handed off by Minoo Chiu, KRISTINA rv1 20:09 No provider procedures requiring assistance completed. Patient admitted, IV remains in kl place. Administered Medications: 16:51 Drug: NS 0.9% IV 1000 ml Route: IV; Rate: 1 bolus; Site: right antecubital; ph 16:52 Drug: Famotidine IVP 20 mg Route: IVP; Site: right antecubital; ph 16:52 Drug: Ondansetron IVP 4 mg Route: IVP; Site: right antecubital; ph 16:52 Drug: morphine IVP or IV 4 mg Route: IVP; Infused Over: 4 mins; Site: right antecubital;ph 17:35 Drug: hydrALAZINE IVP 10 mg Route: IVP; Site: right antecubital; ph 17:59 Drug: morphine IVP or IV 4 mg Route: IVP; Infused Over: 4 mins; Site: right antecubital;ph 18:52 Drug: Piperacillin-Tazobactam IVPB 3.375 grams Route: IVPB; Infused Over: 60 mins; ld1 Site: right antecubital; Medication: 16:57 VIS not applicable for this client. ph Outcome: 18:03 Decision to Hospitalize by Provider. kb 20:08 Admitted to Tele via wheelchair, room 408, Report called to ahmet cortes 20:08 Condition: improved 20:08 Discharge instructions given to patient, Instructed on the need for admit, Demonstrated understanding of instructions. 20:09 Patient left the ED. Signatures: Dispatcher [employer] EDMS Erin De Leon, PÉREZ-C REPAIR SERVICER-Edith Landry RN RN kl Rivera, Mary mr Hall, Minoo, RN RN ph Abby, Lynsey, RN RN ld1 Gemma Godfrey1 Boyd, Christina, RN RN cm10
--- NOTE | 2022-11-14 18:04 | EDPHYS ---
Physician Documentation [facility] Name: Skyler Fairbanks Age: 47 yrs Sex: Male : 1975 Arrival Date: 11/14/2022 Time: 15:48 Bed 6 Private MD: Hermes Lopez ED Physician Sharath Mariee HPI: 11/14 16:45 This 47 yrs old Male presents to ER via Ambulatory with complaints of High kb Blood Pressure, Abdominal Pain. 16:45 The patient presents with abdominal pain that is diffuse. Onset: The symptoms/episode kb began/occurred today, at 11:00, and became worse 1 hour(s) ago. The symptoms do not radiate. Associated signs and symptoms: Pertinent positives: diarrhea, Pertinent negatives: nausea and vomiting, fever. The symptoms are described as constant. Modifying factors: The symptoms are alleviated by nothing, the symptoms are aggravated by nothing. Severity of pain: At its worst the pain was moderate in the emergency department the pain is unchanged. The patient has not experienced similar symptoms in the past. The patient has not recently seen a physician. Sister reports pt called her at 1530 and told her he started having abd pain at 1100 and it has gotten much worse. Sister states pt was diaphoretic when she arrived. She checked his BP and it was high as well. Pt states he took his prescribed HTN medication today. denies headache, dizziness, chest pain. Historical: - Allergies: 16:16 No Known Allergies; cm10 - PMHx: 16:16 eczema; Hypertensive disorder; Cerebrovascular accident; cm10 - Immunization history:: Adult Immunizations unknown. - Social history:: Smoking status: Patient denies any tobacco usage or history of. ROS: 16:44 Constitutional: Negative for fever, chills, and weight loss. kb 16:44 Abdomen/GI: Positive for abdominal pain, diarrhea, Negative for nausea and vomiting. 16:44 All other systems are negative. Exam: 16:44 Constitutional: This is a well developed, well nourished patient who is awake, alert, kb and in no acute distress. Head/Face: Normocephalic, atraumatic. ENT: Moist Mucous membranes Cardiovascular: Regular rate and rhythm with a normal S1 and S2. No gallops, murmurs, or rubs. No pulse deficits. Respiratory: Respirations even and unlabored. No increased work of breathing. Talking in full sentences Abdomen/GI: Soft, non-tender. No distention Skin: Warm, dry with normal turgor. Normal color. MS/ Extremity: Pulses equal, no cyanosis. Neurovascular intact. Full, normal range of motion. 16:44 Neuro: Exam negative for acute changes. Vital Signs: 16:14 BP 191 / 116; Pulse 93; Resp 16; Temp 98.3(O); Pulse Ox 100% ; Weight 101.15 kg; Height cm10 5 ft. 6 in. ; Pain 9/10; 16:57 BP 198 / 100; Pulse 98; Resp 18; Pulse Ox 98% on R/A; ph 17:21 BP 200 / 106; ld1 17:59 BP 164 / 80; Pulse 104; Resp 18; Pulse Ox 98% on R/A; ph 18:43 BP 165 / 87; ld1 19:41 BP 166 / 78; Pulse 106; Resp 18; Pulse Ox 99% on R/A; kl 16:14 Body Mass Index 35.99 (101.15 kg, 167.64 cm) cm10 16:14 Pain Scale: Adult cm10 MDM: 16:17 Patient medically screened. kb 16:47 Differential diagnosis: cholecystitis, Cholelithiasis, diverticulitis, gastritis, kb gastroesophageal reflux disease, non-specific abd pain. Data reviewed: vital signs, nurses notes. 16:47 Historians other than the Patient: Family Member: sister. kb 18:02 Consideration of Admission/Observation Patient was admitted/placed on observation. todd Management of patient was discussed with the following: Primary Care Provider: Discussed findings with Dr Lopez. Would like pt admitted. Counseling: I had a detailed discussion with the patient and/or guardian regarding: the historical points, exam findings, and any diagnostic results supporting the discharge/admit diagnosis, lab results, radiology results, the need for further work-up and treatment in the hospital. 18:06 Management of patient was discussed with the following: Railway Signal Operator: Discussed with GEOFFREY Nicole after midnight, mark. 11/14 16:22 Order name: CBC with Diff; Complete Time: 17:18 kb 11/14 16:22 Order name: CMP; Complete Time: 17:10 kb 11/14 16:22 Order name: Lipase; Complete Time: 17:10 kb 11/14 16:22 Order name: Troponin HS; Complete Time: 17:10 kb 11/14 16:22 Order name: Abdomen Limited US; Complete Time: 17:24 kb 11/14 17:11 Order name: CT Abd/Pelvis - IV Contrast Only; Complete Time: 17:37 kb 11/14 16:22 Order name: EKG; Complete Time: 16:22 kb 11/14 16:22 Order name: IV Saline Lock; Complete Time: 16:34 kb 11/14 16:22 Order name: Labs collected and sent; Complete Time: 16:34 kb 11/14 16:22 Order name: EKG - Nurse/Tech; Complete Time: 17:07 kb Administered Medications: 16:51 Drug: NS 0.9% IV 1000 ml Route: IV; Rate: 1 bolus; Site: right antecubital; ph 16:52 Drug: Famotidine IVP 20 mg Route: IVP; Site: right antecubital; ph 16:52 Drug: Ondansetron IVP 4 mg Route: IVP; Site: right antecubital; ph 16:52 Drug: morphine IVP or IV 4 mg Route: IVP; Infused Over: 4 mins; Site: right antecubital;ph 17:35 Drug: hydrALAZINE IVP 10 mg Route: IVP; Site: right antecubital; ph 17:59 Drug: morphine IVP or IV 4 mg Route: IVP; Infused Over: 4 mins; Site: right antecubital;ph 18:52 Drug: Piperacillin-Tazobactam IVPB 3.375 grams Route: IVPB; Infused Over: 60 mins; ld1 Site: right antecubital; Disposition Summary: 11/14/22 18:03 Hospitalization Ordered Hospitalization Status: Inpatient Admission kb Provider: Hermes Lopez Location: Telemetry/MedSurg (Inpatient) kb Condition: Stable kb Problem: new kb Symptoms: are unchanged kb Bed/Room Type: Standard Room Assignment: [facility](11/14/22 19:31) cg Diagnosis - Other cholelithiasis without obstruction kb - Abdominal pain, Generalized kb - Essential (primary) hypertension kb Forms: - Medication Reconciliation Form kb - SBAR form kb Signatures: Dispatcher [employer] Erin Vincent, JASONC PÉREZ-Minoo Little RN RN ph Kristi Chiu RN RN cg Lynsey Mora RN RN ld1 Christina Nix RN RN cm10 Corrections: (The following items were deleted from the chart) 19:31 18:03 kb
[2022-11-14] MEDS ORDERED: PIPERACIL/TAZO 3.375 GM VIAL IV ONE (18:36)
[2022-11-14] MEDS ORDERED: NA CHLORIDE 0.9% 100 ML ONE (18:36)
[2022-11-14] MEDS ORDERED: NA CHLORIDE 0.9% 1,000 ML IV SCH (19:06)
[2022-11-14] MEDS ORDERED: ONDANSETRON 4 MG/2 ML VIAL IV PRN (19:06)
[2022-11-14] MEDS ORDERED: AMLODIPINE 5 MG TAB PO ONE ×2 (20:13→22:14)
[2022-11-14] MEDS: MORPHINE 4 MG/ML SYR IV PRN (20:42)
[2022-11-14] MEDS ORDERED: HYDRALAZINE HCL 25 MG TABLET PO ONE (22:14)
[2022-11-14] MEDS ORDERED: METOPROLOL TAR 25 MG TAB PO ONE (22:14)
[2022-11-15] MEDS: D5 0.9 NS 1,000 ML IV SCH ×2 (00:24→18:04)
--- NOTE | 2022-11-15 00:32 | HP ---
Date of Admission: 11/14/2022 Chief Complaint: Abdominal pain, nausea, vomiting. History Of Present Illness: This is a 47-year-old male patient who was doing fine in his normal usual state of health until this morning. All of a sudden, he had acute onset of right upper quadrant abdominal pain associated with nausea and vomiting. Denies any fever or chills. The patient's sister contacted me with this information and she was advised to bring him to the emergency room. After he was evaluated in the ER, he was admitted to the hospital with gallstones and cholecystitis. I saw him in the emergency room. The patient reports that his abdominal pain since it started has been continuous. Pain does not radiate anywhere. Denies any fever or chills. Allergies: NO KNOWN ALLERGIES. Medications: Amlodipine 5 mg 2 times a day, aspirin 81 mg daily, atorvastatin 80 mg daily at bedtime, hydralazine 25 mg 2 times a day, metoprolol tartrate 50 mg 2 times a day, trazodone 50 mg daily at bedtime. Review of Systems: GI: As mentioned above. All other systems reviewed and negative. Past Medical History: Significant for stroke, hypertension, hyperlipidemia, carotid artery stenosis. Past Surgical History: Negative. Family History: Father has coronary artery disease, hypertension, and hyperlipidemia. Mother has lymphoma and hyperlipidemia. Sister has hypertension, hyperlipidemia, and hypothyroidism. Social History: Negative for smoking. Use of alcohol occasional. Physical Examination: Vital Signs: Height 5 feet 6 inches, weight 224 pounds, temperature 98.4, pulse 105, respiratory rate 18, blood pressure 178/90, oxygen saturation 97%. General: Awake, alert, oriented, not in distress. HEENT: Head atraumatic, normocephalic. Conjunctivae nonerythematous. Sclerae white. Mouth, no thrush or edema noted. Ears/Nose, no mass, lesion, discharge noted. Neck: Supple. No JVD, lymph nodes, bruit, thyromegaly noted. Lungs: Bilateral good equal air entry. Clear to auscultation. No rhonchi. No rales. Heart: Normal heart sounds, no murmur or gallop. Abdomen: Presence of tenderness in right upper quadrant. No rebound tenderness. Bowel sounds normoactive. No hepatosplenomegaly. No bruit. Extremities: No leg edema. No calf tenderness. Skin: No rash, ulcer, cellulitis. Lymphatics: No lymph node enlargement in neck, supraclavicular, infraclavicular region. Neuro: No focal neurological deficit. Chest: Unremarkable. External Genitalia: Deferred. Rectal: Deferred. JUNIOR ANALYST: The patient has left-sided weakness with power 3/5 in left arm and 5/5 in the left leg. This is a chronic finding. Laboratory Data: Sodium 138, potassium 4, chloride 106, bicarb 29, BUN 20, creatinine 1.04, glucose 140. Liver function tests unremarkable. Lipase 23. White count 10, hemoglobin 14.7, platelets 236. CAT scan of abdomen and pelvis with contrast shows prominent gallbladder distention. Abdominal ultrasound limited, right upper quadrant study shows cholelithiasis. Impression: 1. Gallstone with acute cholecystitis. 2. Hypertension. 3. Hyperlipidemia. 4. Carotid artery stenosis, right side, chronic. Plan: Admit the patient to hospital for further evaluation and management of this problem. The patient is appropriate for inpatient and is expected to spend 2 midnights in the hospital. SCD was ordered for DVT prophylaxis. The patient received hydralazine in the emergency room for both blood pressure control. I will go ahead and order amlodipine and metoprolol tonight and hydralazine tonight as well. We will start empiric antibiotics, Zosyn. Pain medication and nausea medication will be given per order. General surgeon, Dr. Nix, will be consulted and I have called and discussed details with him. We will keep the patient n.p.o. and the patient will have laparoscopic cholecystectomy tomorrow. Plan of treatment discussed with the patient and his sister. The patient understands and agrees with the plan of treatment. SOPHY/MODL Voice ID: [id number] MTDD
[2022-11-15] MEDS: PIPER TAZO 3.375 GM in NA CHLORIDE 0.9% 100 ML IV SCH ×3 (00:42→18:06)
[2022-11-15 05:19] LABS: Absolute Lymphocytes (CBC) 0.9 K/uL (0.7-4.9); Lymphocytes % 6.5 % (15.3-44.8); MPV 8.7 fL (7.6-11.3); RBC Red Blood Cell Count 4.83 M/uL (4.33-5.43)
[2022-11-15 05:35] LABS: Albumin 3.7 g/dL (3.4-5.0); Bilirubin Direct 0.2 mg/dL (0-0.2); Bilirubin Indirect, Calculated 0.6 mg/dL (0.2-0.8); Bilirubin Total 0.8 mg/dL (0.2-1.0); Potassium 3.5 mEq/L (3.5-5.1); Protein, Total 7.6 g/dL (6.4-8.2)
[2022-11-15] MEDS: MORPHINE 4 MG/ML SYR IV PRN ×3 (06:25→23:06)
[2022-11-15] MEDS ORDERED: HYDRALAZINE HCL 25 MG TABLET PO ONE (07:51)
[2022-11-15] MEDS ORDERED: METOPROLOL TAR 50 MG TAB PO ONE (07:51)
[2022-11-15] MEDS ORDERED: ALPRAZOLAM 0.5 MG TABLET PO ONE (07:51)
[2022-11-15] MEDS ORDERED: AMLODIPINE 5 MG TAB PO ONE (07:51)
[2022-11-15] MEDS ORDERED: FENTANYL CITR 100 MCG/2 ML ONE (12:46)
[2022-11-15] MEDS ORDERED: MIDAZOLAM HCL 2 MG/2 ML INJ ONE (12:46)
[2022-11-15] MEDS ORDERED: propofoL 200 MG/20 ML VIAL IV ONE (12:46)
[2022-11-15] MEDS ORDERED: ROCURONIUM 50 MG/5 ML VIAL IV ONE (12:46)
[2022-11-15] MEDS ORDERED: ONDANSETRON 4 MG/2 ML VIAL ONE (12:47)
[2022-11-15] MEDS ORDERED: LIDOCAINE 2% MPF 5 ML VIAL ONE (12:47)
[2022-11-15] MEDS ORDERED: dexAMETHasone 4 MG/ML VIAL ONE (12:48)
[2022-11-15] MEDS ORDERED: Ringers Lactate 1,000 ML IV ONE (12:56)
[2022-11-15] MEDS ORDERED: GLYCOPYRROLATE 0.2 MG/ML SYR ONE (14:19)
[2022-11-15] MEDS ORDERED: NEOSTIGMINE 1 MG/ML -10 ML VIAL ONE (14:19)
[2022-11-15] MEDS ORDERED: HYDROCODONE/APAP 5/325 MG TAB PO PRN ×2 (14:30→14:36)
--- NOTE | 2022-11-15 14:37 | P.BOP ---
Preoperative diagnosis: acute cholecystitis, symptomatic cholelithiasis Postoperative diagnosis: same, intrabdominal adhesions Primary procedure: Laparoscopic cholecystectomy Secondary procedure: Laparoscopic lysis of adhesions Specimen: gb Findings: acute cholecystitis Anesthesia: General Complications: None Transferred to: Recovery Room Condition: Good
[2022-11-15] MEDS: FENTANYL CITR 100 MCG/2 ML ONE ×4 (14:49→15:07)
[2022-11-15 15:09] VITALS: O2SAT 97
--- NOTE | 2022-11-15 16:30 | EKG ---
Test Date: 2022-11-14 Test Time: 17:09:58 Bar Attendant: PRO MEASUREMENT RESULTS: Intervals: Rate: 100 MA: 194 QRSD: 108 QT: 376 QTc: 485 [place]: P: 60 MA: 194 QRS: 36 T: -53 INTERPRETIVE STATEMENTS: Normal sinus rhythm ST & T wave abnormality, consider inferior ischemia Prolonged QT Abnormal ECG Compared to ECG 03/18/2022 17:46:18 Left ventricular hypertrophy no longer present ST (T wave) deviation still present Possible ischemia still present Electronically Signed On 11-15-22 16:27:46 CDT by Jay Oh
--- NOTE | 2022-11-15 16:48 | CON ---
Date of Consultation: 11/15/2022 Reason For Service: Acute cholecystitis, symptomatic cholelithiasis. History Of Present Illness: This is a case of a 47-year-old patient who comes to us with abdominal p ain since yesterday, associated with nausea and vomiting. He did not get better. He came to the ER, sent by the primary doctor, found to have acute cholecystitis, and symptomatic cholelithiasis and e patient was admitted to the hospital with a plan of cholecystectomy. He denies any dysuria, hematu moshe, hematochezia, melena. Denies any recent traveling out of the country. Denies any family member sick at home. Patient had nausea and vomiting and abdominal pain. Review of Systems: Other than that, 10 points otherwise unremarkable. Allergies: NONE. Medications: Includes amlodipine, aspirin, trazodone, metoprolol. Past Medical History: Significant for stroke, hypertension, hyperlipidemia, carotid artery stenosis. Past Surgical History: None. Family History: Includes hyperlipidemia, hypertension. Social History: He does not smoke. He does not drink alcohol. Physical Examination: Vital Signs: Reviewed. General: The patient is awake and alert. HEENT: Pupils are equal and reactive. Anicteric. Neck: Supple. Chest: Clear. Heart: S1, S2. Abdomen: Epigastric right upper quadrant pain with Melendrez sign positive. Rectal: Deferred. Extremities: Good capillary refill. Neuro: The patient had received a left-sided weakness from previous stroke. Laboratory Data: Blood work shows WBC count of 14, with hemoglobin of 14.4, potassium 3.5, total [place] i of 0.8, alkaline phosphatase is 74. Ultrasound and CAT scan of the abdomen and pelvis interpreted by Dr. Mane as acute cholecystitis, symptomatic cholelithiasis with distended gallbladder. Assessment: This is a 47-year-old patient who comes to us with multiple medical problems, but in thi s case will be acute cholecystitis, symptomatic cholelithiasis with intractable pain. I discussed case with Dr. Lopez this morning who kindly came to see this patient. We discussed medical issues a nd also the surgical issues. The benefits, alternatives, and risks of laparoscopic possible open cho lecystectomy were fully explained to the patient which include, but not limited to, infection, bleedi ng, damage to adjacent structures, anesthesia complication, stroke, myocardial infarction, choledocho lithiasis, bile leak, pancreatitis, and even . He also understands this may not relieve any sym ptoms. He might need more than one surgical intervention. He understood and signed a consent. The patient was booked in OR. JIMMIE/ATIF Voice ID: [id number] Report ID: [id number]
--- NOTE | 2022-11-15 17:08 | PN ---
Date of Progress Note: 11/15/2022 Subjective: Patient was seen this morning for followup. His family was with him at bedside. No new complaints reported. Continues to have right upper quadrant pain. Physical Examination: Vital Signs: Reviewed this morning. Temperature 100.8, pulse 108, respiratory rate 18, blood pressu re 174/84, oxygen saturation 92%. HEENT: Unremarkable. Lungs: Clear to auscultation. Heart: Sounds normal. Abdomen: Soft. Bowel sounds normal. No guarding, rigidity, distention. Presence of right upper qu adrant tenderness unchanged from yesterday. No rebound tenderness. Extremities: No leg edema. Laboratory Data: White count 14.2 today with hemoglobin 14.4, platelets 237. Sodium 134, potassium 3.5, chloride 103, bicarb 24, BUN 14, creatinine 1.06, glucose 126. Liver function tests unremarkabl e. Lipase 12. Impression: 1.Acute cholecystitis with gallstones. 2.Hypertension. 3.Carotid artery stenosis. 4.Stroke with left-sided hemiparesis. 5.Hyperlipidemia. Plan: We will go ahead and continue current empiric antibiotic. Continue pain medication per order. This morning, patient was also having some anxiety problem, so family requested some medications fo r that and alprazolam 0.5 mg p.o. x1 dose was given along with amlodipine 5 mg, hydralazine 25 mg, an d metoprolol 50 mg p.o. was given with few sips of water this morning. I did communicate with Dr. Forest stephenson. Patient will have surgery either later this morning or early afternoon and details were discussed with family. We will go ahead and see him tomorrow justen barrow for followup. SPOHY/MODL Voice ID: [id number] Report ID: [id number]
[2022-11-16] MEDS: PIPER TAZO 3.375 GM in NA CHLORIDE 0.9% 100 ML IV SCH ×2 (00:11→09:43)
[2022-11-16 01:51] VITALS: BMI 36.1
[2022-11-16] MEDS ORDERED: HYDRALAZINE HCL 25 MG TABLET PO SCH (09:00)
[2022-11-16] MEDS ORDERED: AMLODIPINE 5 MG TAB PO SCH (09:00)
[2022-11-16] MEDS ORDERED: METOPROLOL TAR 50 MG TAB PO SCH (09:00)
[2022-11-16 11:49] VITALS: BP 119/62; TEMP 98.6
--- NOTE | 2022-11-16 13:04 | P.PN ---
Subjective Date of Service: 11/16/22 Subjective: Tolerating diet, Ambulating, Improving Review of Systems Respiratory: Unremarkable Integumentary: Unremarkable Physical Examination - Vital Signs Temperature: 98.6 F Blood Pressure: 119/62 Pulse: 68 Respirations: 18 Pulse Ox (%): 94 - Physical Exam General: Alert, In no apparent distress, Oriented x3, Cooperative HEENT: PERRLA Neck: Supple Cardiovascular: Normal pulses Gastrointestinal: Soft and benign, No rebound, No guarding Musculoskeletal: No erythema, No tenderness, No warmth Integumentary: No rashes, No breakdown, No cyanosis Neurological: Normal speech Assessment And Plan - Plan ok to be discharge from surgical standpoint care (instrructed) ambulate f/u office friday to remove drain
--- NOTE | 2022-11-18 14:34 | OP ---
Date of Procedure: 11/15/2022 Surgeon: Deep Nix MD Preoperative Diagnoses: Acute cholecystitis, symptomatic cholelithiasis, history of stroke. Postoperative Diagnoses: Acute cholecystitis, symptomatic cholelithiasis, history of stroke plus int ra-abdominal adhesions. Procedures: Laparoscopic cholecystectomy, laparoscopic lysis of adhesions. Specimen: Gallbladder. Finding: Acute cholecystitis and multiple adhesions in the right upper quadrant. Those adhesions lo oked old, they have there before and in order for me to get this gallbladder out, I spent half of the time just trying to get the adhesions down. Anesthesia: General plus local. Complications: None. Indication: This is the case of a male, who comes to us with acute abdominal pain, Melendrez sign posit tash, some other comorbidities. He was admitted to the hospital and I was asked to do a cholecystecto my in this patient due to acute cholecystitis, symptomatic cholelithiasis. The benefits, alternative s, and risks fully explained, which include, but not limited to infection, bleeding, damage to adjace nt structures, anesthesia complication, choledocholithiasis, bile leak, pancreatitis, NH, and even de ath. He also understands this may not relieve any symptoms. He might need more than one surgical in tervention. He understood, signed a consent. Procedure In Detail: The patient was brought to the operating room, placed in supine position. Anes thesia was done without complication. Abdominal area was prepped and draped in the usual sterile fas hion. Local anesthesia was applied followed by sharp incision of the skin in the infraumbilical abena on. The incision was carried down to fascia, which was opened under direct vision. Peritoneum was e ncountered, opened under direct vision. Vicryl #1 placed inside the fascia. Jesus trocar was caref ully introduced. Pneumoperitoneum was obtained. Immediately, we noticed a wall of omentum adhesions to the anterior abdominal wall right over the area of the liver. The etiology of that is unknown. He does not recall any previous attacks like this. It looks like it has been there before, looked chevy woodall is old, probably from previous severe inflammation of that area. I cannot put the trocars in bebo use they are already in the size of my insertion point, so we proceeded to do this sequentially. We put the first 5 mm trocar under direct visualization and using the LigaSure, we proceed to do lysis o f adhesions and sequentially as we removed the adhesions, we were able to put more 5 mm trocars, tota l 3 in the right upper quadrant. Then, after that, we continued lysis of adhesions and looked it has previous inflammatory process, they were dense. I did not see any tumor in the liver, that area jus t distended and inflamed gallbladder, but apparently this probably happened to him in the past, those adhesions look dense. Once we removed the adhesions down, we checked the omentum, checked transvers e colon. We could not see any extraluminal mass. We proceeded then to deflate the gallbladder with the help of an Endo needle under direct visualization due to distention. Once we did that part, we p roceeded to carefully put a grasper in the fundus of the gallbladder after removing the needle under direct visualization and then slowly took adhesions down of the gallbladder with the help once again of the LigaSure, also adhesions to the liver with the help of LigaSure until we have the infundibulum . At that moment, we have a grasper in the fundus of the gallbladder, another in infundibulum. The gallbladder was retracted in the inferolateral fashion exposing the triangle of Calot, obtaining crit ical view. Cystic duct and cystic artery were clearly isolated, freed circumferentially and a connec tion between those and the gallbladder were clearly identified. I proceeded to ligate those by using at least 3 clips proximal, 1 clip distal, ligation in middle. Same was done with the cystic artery. No bile leak, no bleeding. The gallbladder was removed from liver using Bovie cauterizer and from the abdominal cavity using an EndoCatch through the umbilical incision. The area was inspected once again. No bile leak, no bleeding. Due to all this inflammation in that area, the infection, we proc eeded to decide to leave a COBY drain in that region. The COBY drain was exiting through 1 of the trocar sites and secured in place with 3-0 nylon after ensuring hemostasis and no bile leak. Clips were in tact. We proceeded to remove the trocars under direct vision. Deflated pneumoperitoneum. Closed th e fascia with #1 Vicryl. Irrigated subcutaneous tissue, closed that with 3-0 chromic and skin with s taples. Sponge count, instrument counts correct. The patient tolerated the procedure well. COBY was connected to bulb suction. The patient sent to recovery in stable condition. HM/MODL Voice ID: [id number] Report ID: [id number]
== END 2022-11-16 14:00 | disposition home or self-care (01) | DRG 418 ==
LOC: ER 15:48 → ERHOLD 18:37 → 4TH 19:37
PROVIDERS: ADMIT Internal Medicine; ATTEND Internal Medicine
PROC: 0FN44ZZ Release Gallbladder, Percutaneous Endoscopic Approach (ICD-10-PCS; 2022-11-15)
PROC: 0FN04ZZ Release Liver, Percutaneous Endoscopic Approach (ICD-10-PCS; 2022-11-15)
PROC: 0FT44ZZ Resection of Gallbladder, Percutaneous Endoscopic Approach (ICD-10-PCS; principal; 2022-11-15 13:30)
DX: K80.00 Calculus of gallbladder with acute cholecystitis without obstruction (principal); I69.354 Hemiplegia and hemiparesis following cerebral infarction affecting left non-dominant side; I10 Essential (primary) hypertension; E78.5 Hyperlipidemia, unspecified; I65.21 Occlusion and stenosis of right carotid artery; K66.0 Peritoneal adhesions (postprocedural) (postinfection); Z79.82 Long term (current) use of aspirin; Z79.899 Other long term (current) drug therapy
CPT/HCPCS: 36415; 74177; 76705; 80048; 80053; 80076; 83690; 84484; 85025; 88304; 93005; 94010; 96374; 96375; 99285; J0360; J1100; J2001; J2250; J2405; J2543; J2704; J2710; J3010; J7030; J7042; J7120; Q9967